=== PATIENT | female | born 1985 | race Caucasian/White ===

== ENCOUNTER 2018-05-22 16:51 | Outpatient (RCR) | payer MEDICAID, SELFPAY | END 2018-05-22 16:52 | disposition home or self-care (01) | LOC: PT 16:51 | PROVIDERS: Family Provider Nurse Practitioner Obstetrics & Gynecology; PCP Physician Assistant; Visit Provider Physician Assistant | DX: M54.5 Low back pain (principal) | CPT/HCPCS: 97163 ==

== ENCOUNTER → 2018-09-22 10:58 | Outpatient (CLI) | payer MEDICAID, SELFPAY ==
[2018-09-22 11:03] LABS: Adenovirus,PCR Not Detected (NotDetected); Bordetella Pertussis Not Detected (NotDetected); Chlamydophila Pneumoniae, PCR Not Detected (NotDetected); Coronavirus 229E Not Detected (NotDetected); Coronavirus NL63 Not Detected (NotDetected); Coronavirus OC43 Not Detected (NotDetected); Coronovirus HKU1,PCR Not Detected (NotDetected); Human Metapneumovirus Not Detected (NotDetected); Influenza A, PCR Not Detected (NotDetected); Influenza AH1, 2009 Not Detected (NotDetected); Influenza AH1, PCR Not Detected (NotDetected); Influenza AH3,PCR Not Detected (NotDetected); Influenza B, PCR Not Detected (NotDetected); Mycoplasma Pneumoniae, PCR Not Detected (NotDetected); Parainfluenza 1, PCR Not Detected (NotDetected); Parainfluenza 2, PCR Not Detected (NotDetected); Parainfluenza 3, PCR Not Detected (NotDetected); Parainfluenza 4, PCR Not Detected (NotDetected); Respiratory Syncytial Virus Not Detected (NotDetected); Rhinovirus/Enterovirus Not Detected (NotDetected)
== END ==
PROVIDERS: PCP Physician Assistant; Visit Provider Physician Assistant
DX: R09.89 Other specified symptoms and signs involving the circulatory and respiratory systems (principal)
CPT/HCPCS: 87486; 87581; 87633; 87798

== ENCOUNTER → 2019-03-03 08:56 | Outpatient (CLI) | payer MEDICAID, SELFPAY ==
--- NOTE | 2019-03-03 | US_ITS ---
US thyroid HISTORY: ITS.REASON: THYROID NODULE ORDERING PHYSICIAN: Rivas Bentley MD PATIENT AGE: 33 years Comparison: None FINDINGS: The right lobe of the thyroid gland is 4.5 x 1.5 x 1.6 cm. No nodules are evident. The left lobe is 4.3 x 1.3 x 1.5 cm. There is a slightly hypoechoic nodule well-circumscribed in the mid upper pole on the left. This measures 1.6 x 1 cm. IMPRESSION: 16 mm slightly hypoechoic well-circumscribed nodule in the upper pole on the left otherwise negative thyroid ultrasound
--- NOTE | 2019-03-03 09:06 | US_ITS ---
US FNA Thyroid HISTORY: Left thyroid nodule ORDERING PHYSICIAN: Rivas Bentley MD PATIENT AGE: 33 years COMPARISON: None TECHNIQUE: Following obtaining informed consent, using aseptic technique and local anesthesia with buffered lidocaine, fine-needle aspiration was performed of the nodule of interest using sonographic guidance. 4 passes were made into the nodule with a 25-gauge needle. Specimen was given to cytology. The patient tolerated the procedure well without evidence of immediate complications and left the ultrasound suite in stable condition. CYTOLOGY:Pending IMPRESSION: Uneventful fine-needle aspiration of left thyroid nodule with cytology pending
[2019-03-03 10:30] LABS: Free T4 (Free Thyroxine) 0.97 ng/dl (0.76-1.46); Thyroid Stimulating Hormone 1.85 uIU/ml (0.358-3.740)
[2019-03-04 06:53] LABS: Thyroid Peroxidase Antibodies 47 IU/mL (0-34)
[2019-03-05 14:33] LABS: Calcitonin <2.0 pg/mL (0.0-5.0)
[2019-03-06 07:01] LABS: Thyroid Stimulating Immunoglob <0.10 IU/L (0.00-0.55)
== END ==
PROVIDERS: Visit Provider Otolaryngology
DX: E04.1 Nontoxic single thyroid nodule (principal)
CPT/HCPCS: 10005; 36415; 76536; 76942; 82308; 84439; 84443; 84445; 86376

== ENCOUNTER → 2019-04-17 09:50 | Outpatient (CLI) | payer MEDICAID, SELFPAY ==
--- NOTE | 2019-04-17 09:56 | US_ITS ---
US thyroid HISTORY: ITS.REASON: thyroid nodule- left ORDERING PHYSICIAN: Rivas Bentley MD PATIENT AGE: 33 years Comparison: 02/06/2019. FINDINGS: Isthmus is 4.1 mm in diameter. Right lobe is 1.5 x 4.2 x 1.6 cm. Left lobe is 1.5 x 4.1 x 1.5 cm. The echogenicity of the thyroid tissue is normal. Along the posterior upper pole of the left thyroid lobe there is a hypoechoic nodule measuring 1.3 x 0.8 x 1.0 cm and is stable in size and appearance since prior study. Right lobe on today study shows a subtle mid posterior hypoechoic nodule which is somewhat pedunculated and measures 0.5 x 0.6 x 0.8 cm. This is homogeneous hypoechoic. Impression: Left thyroid lobe nodule stable as discussed on outside report. Today's study shows a pedunculated mid right thyroid nodule. There is no definite fatty hilum to suggest lymph node however this could be a pedunculated thyroid nodule not well seen on the prior study or even parathyroid nodule. Suggest follow-up recommended no mass or report which is approximately 1 year. Also consider correlating with calcium levels to rule out parathyroid adenoma.
== END ==
PROVIDERS: PCP Nurse Practitioner Family; Visit Provider Otolaryngology
DX: E04.1 Nontoxic single thyroid nodule (principal)
CPT/HCPCS: 76536

== ENCOUNTER → 2019-04-30 12:48 | Outpatient (CLI) | payer MEDICAID, SELFPAY ==
[2019-05-01 17:14] LABS: Calcium, Ionized 5.3 mg/dL (4.5-5.6)
== END ==
PROVIDERS: Visit Provider Otolaryngology
DX: R13.10 Dysphagia, unspecified (principal); D49.7 Neoplasm of unspecified behavior of endocrine glands and other parts of nervous system; E21.5 Disorder of parathyroid gland, unspecified
CPT/HCPCS: 36415; 82330

== ENCOUNTER → 2019-05-06 09:00 | Outpatient (CLI) | payer MEDICAID, SELFPAY ==
--- NOTE | 2019-05-06 09:05 | FL_ITS ---
EXAM: Barium swallow/esophagram. INDICATION: ITS.REASON: difficulty swallowing ORDERING PHYSICIAN: Rivas Bentley MD PATIENT AGE: 33 years COMPARISON: None TECHNIQUE: In the upright position the patient was observed to swallow barium in both the AP and lateral view. The cervical esophagus was examined under fluoroscopy with images obtained. The patient was then placed prone in the right anterior oblique position and was observed to swallow barium with Valsalva technique . FLUOROSCOPY TIME: 42 seconds FINDINGS: There was no evidence of aspiration. There was normal peristalsis. No filling defects or mucosal abnormalities. No masses or strictures. The esophagus is midline with no evidence of extrinsic compression. No hiatal hernia IMPRESSION: Negative barium swallow.
== END ==
PROVIDERS: PCP Nurse Practitioner Family; Visit Provider Otolaryngology
DX: R13.10 Dysphagia, unspecified (principal); D49.7 Neoplasm of unspecified behavior of endocrine glands and other parts of nervous system; E21.5 Disorder of parathyroid gland, unspecified
CPT/HCPCS: 74220

== ENCOUNTER → 2019-11-20 09:57 | Outpatient (CLI) | payer MEDICAID, SELFPAY ==
--- NOTE | 2019-11-20 09:58 | US_ITS ---
PROCEDURE: US THYROID CLINICAL INDICATION: Goiter Follow-up nodule COMPARISON: THY US thyroid from 04/17/2019 FINDINGS: Right lobe: 4 x 1.2 x 2.6 cm. There is a slightly hypoechoic nodule along the mid aspect of the right thyroid gland posteriorly measuring approximately 1 cm and could represent parathyroid gland and is unchanged. Left lobe: 4.2 x 1.6 x 1.2 cm. There is a 1 cm slightly hypoechoic well defined nodule along the posterior aspect of the left lobe of the thyroid gland. This is not significantly changed. No new nodules are evident. IMPRESSION: No change bilateral thyroid nodules with the nodule on the right possibly representing a parathyroid gland Dictated by: Darren Fenton MD 11/20/2019 12:19 Electronically signed by Darren Fenton MD in [place] 11/20/2019 12:19
== END ==
PROVIDERS: PCP Nurse Practitioner Family; Visit Provider Otolaryngology
DX: E04.1 Nontoxic single thyroid nodule (principal)
CPT/HCPCS: 76536

== ENCOUNTER → 2019-11-23 12:49 | Outpatient (CLI) | payer MEDICAID, SELFPAY ==
[2019-11-23 14:45] LABS: Free T4 (Free Thyroxine) 1.01 ng/dl (0.76-1.46); Thyroid Stimulating Hormone 1.22 uIU/ml (0.358-3.740)
[2019-11-24 20:05] LABS: Calcium, Ionized 5.4 mg/dL (4.5-5.6)
[2019-11-25 11:56] LABS: Parathyroid Hormone Intact 17 pg/mL (15-65)
== END ==
PROVIDERS: Visit Provider Otolaryngology
DX: E03.9 Hypothyroidism, unspecified (principal)
CPT/HCPCS: 36415; 82330; 83970; 84439; 84443

== ENCOUNTER 2020-04-13 16:00 | Outpatient (RCR) | payer MEDICAID, SELFPAY | END 2020-05-03 10:00 | disposition home or self-care (01) | LOC: PT.CARL 16:00 | PROVIDERS: PCP Nurse Practitioner Family; Visit Provider Podiatrist Foot & Ankle Surgery | DX: M76.62 Achilles tendinitis, left leg (principal) | CPT/HCPCS: 97014; 97033; 97035; 97110; 97140; 97163; G0283 ==

== ENCOUNTER → 2020-05-24 12:54 | Outpatient (CLI) | payer MEDICAID, SELFPAY ==
--- NOTE | 2020-05-24 12:54 | US_ITS ---
PROCEDURE: US THYROID CLINICAL INDICATION: goiter Six-month follow-up thyroid nodule COMPARISON: US US THYROID from 11/20/2019 FINDINGS: Right lobe: 4.4 x 0.8 0.7 cm. There is a isoechoic slightly hypoechoic nodule along the posterior aspect of the right lobes measuring 1 cm and could be due to a parathyroid gland not significantly changed. Left lobe: 4.4 x 1.5 x 1.7 cm. A 14 mm hypoechoic nodule well-circumscribed is present long the posterior aspect of the upper pole on the left also possibly due to enlarged parathyroid gland not significantly changed. Isthmus: Slightly thickened at 4 mm Additional findings: IMPRESSION: Overall no change in the bilateral thyroid nodules possibly related to parathyroid glands Dictated b Darren Fenton MD 05/24/2020 19:00 Darren Fenton MD in [place] 05/24/2020 19:00
== END ==
PROVIDERS: PCP Nurse Practitioner Family; Visit Provider Otolaryngology
DX: E04.1 Nontoxic single thyroid nodule (principal); E04.9 Nontoxic goiter, unspecified
CPT/HCPCS: 76536

== ENCOUNTER 2020-08-07 17:54 | Emergency (ER) | payer MEDICAID, SELFPAY ==
[2020-08-07 18:04] VITALS: BP 138/86; PULSE 90; RESP 18; TEMP 36.7; O2SAT 98; BMI 35.4
--- NOTE | 2020-08-07 18:12 | HMH.EDUTC ---
[facility] [place] Disposition Clinical Impression: Upper respiratory infection Qualifiers: URI type: unspecified URI Qualified Code(s): J06.9 - Acute upper respiratory infection, unspecified Disposition: Home, Self-Care Condition on Discharge: Good Instructions: Sore Throat Additional Instructions: *Monitor Temp, Over the counter Motrin or Tylenol as directed/as needed Tylenol every 4 hours and Motrin every 6 hours (as long as your family doctor has told you that you can take it) for fever or pain. and straight to ER if unable to lower temp less than 101.0 after medication given *Warm salt water gargles may help to soothe the throat *Throat Lozenges *Warm fluids like tea with honey may help to soothe the throat *Sleep elevated *Humidifier/Vaporizer *Flonase 2 sprays in each nostril daily but be aware that it may take 2-3 days before you notice improvement Your throat swab was sent for culture. Those results are typically sent to your primary care. Be sure to follow up in 2-3 days with your family doctor/primary care physician if no improvement so they can review those result and treat if necessary. If you don?t have a primary care doctor, I recommend you get one but in the mean time, you will have to return to a walk in clinic Follow up IMMEDIATELY for new or worsening symptoms or no Noticeable improvement over the next 48-72 hours. 911 for difficulty breathing or swallowing Prescriptions: Amoxicillin [Amoxicillin 500mg Cap] 500 mg PO BID 10 Days #20 cap Transmission Status: Pending to [id number] Referrals: Mabel Jiménez APRN [Primary Care Provider] - As needed Time of Disposition: 18:27 Medical Decision Making - Kumar Inquiry Pt receiving controlled substance: No Kumar was queried for this patient: No Vital Signs: 08/07/20 18:04 Temperature 98.1 F Temperature Source Oral Pulse Rate [Radial] 90 Respiratory Rate 18 Blood Pressure [Right Arm] 138/86 Blood Pressure Mean [Right Arm] 103 Blood Pressure Source [Right Arm] Automatic Cuff Blood Pressure Position [Right Arm] Sitting 02 Sat by Pulse Oximetry 98 Oxygen Delivery Method Room Air [facility] [place] HPI - General Stated complaint: Sore throat Time Seen by Provider: 08/07/20 18:12 Mode of Arrival: Ambulatory Source of Information: Patient Limitations: No Limitations Description of Symptoms (Recalled from Triage Doc. by RN): sore throat since yesterday, possible strep or tonsilitis HEENT Symptoms (Recalled from RN notes): Yes Resp Symptoms (Recalled from RN notes): No Skin Symptoms (Recalled from RN notes): No MS Symptoms (Recalled from RN notes): No Functional Status (Recalled from RN notes): wnl - History of Present Illness Provider Complaint: Patient states that a couple days ago she started with sore throat and drainage States that she has had strep throat multiple times throughout the years States that today it was hurting worse and she came in to get checked - Related Data Home Medications Medication Instructions Recorded Confirmed duloxetine 30 mg capsule,delayed 30 mg PO DAILY 02/23/19 11/23/19 release Meloxicam 15 mg PO DAILY 11/06/19 11/23/19 Previous Rx's Medication Instructions Recorded Ibuprofen [Ibuprofen 600mg 600 mg PO Q6HP PRN #30 tab 12/23/19 Tablet] Amoxicillin [Amoxicillin 500mg 500 mg PO BID 10 Days #20 cap 08/07/20 Cap] Allergies Allergy/AdvReac Type Severity Reaction Status Date / Time No Known Allergies Allergy Verified 11/23/19 13:19 - Worker's Comp Is this a Worker's Comp case?: No [facility] History - Hepatitis A Screen Drug use history?: No High risk sexual behaviors?: No History of sexually transmitted infection?: No Currently employed?: No Childcare worker?: No Do you have indoor plumbing?: Yes Do you have electricity?: Yes Attestation statement:: This patient has been screened for Hepatitis A risk factors. I have reviewed the patient's past medical history: Yes Medical Hi
[2020-08-07 18:25] LABS: UTC Strep Screen (Rapid) Negative (Negative)
[2020-08-07 18:43] VITALS: BP 138/86; PULSE 90; RESP 18; TEMP 36.7; O2SAT 98
== END 2020-08-07 18:50 | disposition home or self-care (01) ==
PROVIDERS: Emergency Provider Nurse Practitioner; PCP Nurse Practitioner Family
DX: J06.9 Acute upper respiratory infection, unspecified (principal); F41.8 Other specified anxiety disorders; F17.210 Nicotine dependence, cigarettes, uncomplicated
CPT/HCPCS: 87880; 99201

== ENCOUNTER 2020-09-09 18:08 | Emergency (ER) | payer MEDICAID, SELFPAY ==
[2020-09-09 18:30] VITALS: BP 117/81; PULSE 74; RESP 21; TEMP 36.9; O2SAT 99; BMI 35.4
--- NOTE | 2020-09-09 18:47 | HMH.EDUTC ---
[facility] [place] Disposition Condition on Discharge: Good <Jd Marcos - Last Filed: 09/09/20 19:59> Condition on Discharge: Fair <Horace Morrison - Last Filed: 09/09/20 20:32> <Dallas Medina - Last Filed: 09/09/20 21:06> Clinical Impression: Abdominal pain Qualifiers: Abdominal location: generalized Qualified Code(s): R10.84 - Generalized abdominal pain Low back pain Qualifiers: Chronicity: acute Back pain laterality: left Sciatica presence: without sciatica Qualified Code(s): M54.5 - Low back pain Cholelithiasis Qualifiers: Cholelithiasis location: gallbladder Cholecystitis presence: without cholecystitis Biliary obstruction: without biliary obstruction Qualified Code(s): K80.20 - Calculus of gallbladder without cholecystitis without obstruction Disposition: Home, Self-Care Instructions: DI for Low Back Pain Referrals: Mabel Jiménez APRN [Primary Care Provider] - Medical Decision Making <Jd Marcos - Last Filed: 09/09/20 19:59> - Medical Records Medical records reviewed: No: I reviewed the patient's medical records. - Kumar Inquiry Pt receiving controlled substance: No - Lab Data Lab results reviewed: Yes: I reviewed the patient's lab results. Result diagrams: 09/09/20 19:10 09/09/20 19:10 <Horace Morrison - Last Filed: 09/09/20 20:32> - Lab Data Result diagrams: 09/09/20 19:10 09/09/20 19:10 - CT Data CT Scan: Abdomen, Pelvis Time Received: 21:[address] Reviewed: Yes: I have viewed the radiologist's interpretation Preliminary Findings: Abnormal (see report ) - Reevaluation(s) Time: 21:03 <Dallas Medina - Last Filed: 09/09/20 21:06> Vital Signs: 09/09/20 18:30 09/09/20 19:13 09/09/20 20:08 Temperature 98.5 F 98.5 F Temperature Source Oral Oral Pulse Rate [Right Brachial] 74 68 72 Respiratory Rate 21 16 17 Blood Pressure [Right Arm] 117/81 136/86 129/62 Blood Pressure Mean [Right Arm] 93 102 84 Blood Pressure Source [Right Arm] Automatic Cuff Automatic Cuff Automatic Cuff Blood Pressure Position [Right Arm] Sitting Sitting Supine 02 Sat by Pulse Oximetry 99 100 100 Oxygen Delivery Method Room Air Room Air Room Air - Lab Data Lab Results 09/09/20 18:30: Urine Color Yellow, Urine Appearance Clear, Urine pH 6.0, Ur Specific [place] 1.010, Urine Protein Negative, Urine Glucose (UA) Negative, Urine Ketones Negative, Urine Blood Negative, Urine Nitrate Negative, Urine Bilirubin Negative, Urine Urobilinogen 0.2, Ur Leukocyte Esterase Negative 09/09/20 19:10: WBC 12.8 H, RBC 4.30, Hgb 15.2, Hct 39.6, MCV 92.2, MCH 35.5 H, MCHC 38.5 H, RDW 13.3, Plt Count 252, MPV 8.4, Neut % (Auto) 70.2, Lymph % (Auto) 20.1, [place] % (Auto) 6.2, Eos % (Auto) 2.8, Baso % (Auto) 0.7, Neut # (Auto) 9.0 H, Lymph # (Auto) 2.6, [place] # (Auto) 0.8, Eos # (Auto) 0.4, Baso # (Auto) 0.1 09/09/20 19:10: Urine HCG, Qual Negative 09/09/20 19:10: Sodium 139, Potassium 4.2, Chloride 104, Carbon Dioxide 27, Anion Gap 12.2, BUN 11, Creatinine 0.90, Estimated Creat Clear 127, Estimated GFR 72, Est GFR ( Amer) 87, Glucose 99, Calcium 9.7, Total Bilirubin 0.4, AST 30, ALT 30, Alkaline Phosphatase 55, C-Reactive Protein 10.1 H, Total Protein 7.7, Albumin 4.6, Globulin 3.1, Albumin/Globulin Ratio 1.5 Orders (Tests/Meds): ED MEDICATIONS Generic Name Dose Route Start Last Admin Trade Name Freq PRN Reason Stop Dose Admin Lactated Ringer's 1,000 mls @ 999 mls/hr 09/09/20 19:30 09/09/20 20:02 Lactated Ringer's 1000 Ml Bag IV 09/09/20 20:30 999 mls/hr .Q1H1M ASHLEY Administration Discontinued Medications Generic Name Dose Route Start Last Admin Trade Name Freq PRN Reason Stop Dose Admin Morphine Sulfate 4 mg 09/09/20 19:30 09/09/20 20:02 Morphine 4mg/Ml Syringe IV 09/09/20 19:31 4 mg ONCE ONE Administration Ondansetron HCl 4 mg 09/09/20 19:30 09/09/20 20:02 Ondansetron 4mg/2ml Vial IV 09/09/20 19:31 4 mg ONCE ONE Administration ORDERS Category Date Time Status CT
[2020-09-09 18:57] LABS: Apearance,Urine Clear (Clear); Bilirubin,Urine Negative (Negative); Blood, Urine Negative (Negative); Color,Urine Yellow (Yellow); Glucose,Urine (UA) Negative (Negative); Ketones,Urine Negative (Negative); Protein,Urine Negative (Negative); UTC Leukocyte Esterase,Urine Negative (Negative); UTC Nitrate,Urine Negative (Negative); Urobilinogen,Urine 0.2 EU/dl (0.2)
--- NOTE | 2020-09-09 19:00 | PC.NURSE ---
PATIENT SENT TO ER PER PER CALLAHAN APRN FOR FURTHER EVALUATION. REPORT GIVEN TO Norm WORLEY RN
[2020-09-09 19:13] VITALS: BP 136/86; PULSE 68; RESP 16; TEMP 36.9; O2SAT 100; BMI 35.4
--- NOTE | 2020-09-09 19:30 | CT_ITS ---
PROCEDURE: CT ABDOMEN PELVIS W CON CLINICAL INDICATION: abdominal pain Low back pain, right lower quadrant pain with nausea COMPARISON: No exams were available for comparison TECHNIQUE: IV Contrast: 75ML Isovue 370 Oral Contrast None Axial images obtained with sagittal and coronal reformats. All CT scans at the facility use one or more dose reduction, viz: automated exposure control, ma/kV adjustment per patient size (including targeted exams where dose is matched to indication, i.e. head), or iterative reconstruction technique. FINDINGS: LOWER THORAX: No acute finding ABDOMEN & PELVIS: The liver, spleen, adrenal glands, pancreas, and kidneys have an unremarkable appearance. There is some minimal stranding of the perinephric renal fat on both sides nonspecific. Gallstones are present. Unremarkable appendix. No pelvic mass or abnormal fluid collection. There are few colonic diverticula but no evidence of diverticulitis. No acute bony findings. There is a small umbilical hernia containing fat IMPRESSION: 1. Mild stranding of the perinephric renal fat versus minimal amount of perinephric fluid. 2. Cholelithiasis. 3. Colonic diverticulosis without diverticulitis Dictated by: Darren Fenton MD 09/10/2020 08:12 Darren Fenton MD in [place] 09/10/2020 08:12
[2020-09-09 19:41] LABS: Chloride 104 mmol/L (98-107); Potassium 4.2 mmoL/L (3.5-5.1); Sodium 139 mmol/L (136-145)
[2020-09-09 19:43] LABS: Blood Urea Nitrogen 11 mg/dl (7-17); Creatinine Clearance Estimated 127 mL/min (50-200); Estimated Glomerular Filt Rate 72 ml/min (>60); GFR (African American) 87 ML/MIN (>60)
[2020-09-09 19:44] LABS: Alanine Aminotransferase 30 U/L (12-78); Albumin Level 4.6 g/dl (3.5-5.0); Albumin/Globulin Ratio 1.5 (1.1-1.8); Alkaline Phosphatase 55 U/L (38-126); Anion Gap 12.2 mEq/L (5-15); Aspartate Amino Transferase 30 U/L (14-36); Bilirubin,Total 0.4 mg/dl (0.2-1.3); Calcium 9.7 mg/dl (8.4-10.2); Carbon Dioxide 27 mmol/L (22.0-30.0); Globulin 3.1 g/dL (1.3-3.2); Glucose 99 mg/dl (74-100); Total Protein,Serum 7.7 g/dl (6.3-8.2)
[2020-09-09 19:50] LABS: Basophils # 0.1 K/mm3 (0-0.2); Basophils % 0.7 % (0.1-2.0); C-Reactive Protein 10.1 mg/L (0-4); Eosinophils # 0.4 K/mm3 (0.0-0.4); Eosinophils % 2.8 % (0.1-12.0); Hematocrit 39.6 % (37.0-47.0); Hemoglobin 15.2 g/dL (12.2-16.2); Lymphocytes # 2.6 K/mm3 (0.7-4.5); Lymphocytes % 20.1 % (10-50); Mean Corpuscular HGB Conc 38.5 g/dL (31.8-35.4); Mean Corpuscular Hemoglobin 35.5 pg (27.0-31.2); Mean Corpuscular Volume 92.2 fl (81-99); Mean Platelet Volume 8.4 fl (7.4-10.4); Monocytes # 0.8 K/mm3 (0.1-1.0); Monocytes % 6.2 % (1.7-9.3); Neutrophils % 70.2 % (37.0-80.0); Platelet Count 252 K/mm3 (142-424); Red Cell Distribution Width 13.3 % (11.5-17.5); White Blood Count 12.8 K/mm3 (4.8-10.8)
[2020-09-09 20:02] LABS: Urine Pregnancy, HCG Qual. Negative (Negative)
[2020-09-09 20:08] VITALS: BP 129/62; PULSE 72; RESP 17; O2SAT 100
[2020-09-09 21:12] VITALS: BP 127/69; PULSE 83; RESP 16; TEMP 36.7; O2SAT 98
== END 2020-09-09 21:15 | disposition home or self-care (01) ==
LOC: UTC 18:56 → ER 19:03
PROVIDERS: Nurse Practitioner Family; Emergency Provider Student in an Organized Health Care Education/Training Program; PCP Nurse Practitioner Family
DX: K80.20 Calculus of gallbladder without cholecystitis without obstruction (principal); F41.8 Other specified anxiety disorders; F17.210 Nicotine dependence, cigarettes, uncomplicated
CPT/HCPCS: 74177; 80053; 81003; 81025; 85025; 86140; 87086; 96365; 96375; 99284; J2405; Q9967

== ENCOUNTER → 2020-09-28 15:55 | Outpatient (CLI) | payer MEDICAID, SELFPAY ==
[2020-09-28 17:43] LABS: Coronavirus 19 IgG Antibody Negative (Negative); Coronavirus 19 IgM Antibody Negative (Negative)
[2020-09-28 18:39] LABS: Urine Pregnancy, HCG Qual. Negative (Negative)
== END ==
PROVIDERS: Visit Provider Surgery
DX: Z01.818 Encounter for other preprocedural examination (principal); Z03.818 Encounter for observation for suspected exposure to other biological agents ruled out; K80.20 Calculus of gallbladder without cholecystitis without obstruction
CPT/HCPCS: 36415; 81025; 86328

== ENCOUNTER 2020-09-30 11:42 | Day surgery (SDC) | payer MEDICAID, SELFPAY ==
[2020-09-28 11:17] VITALS: BMI 35.4
[2020-09-30] VITALS (13 sets, daily range): BP systolic 108–129; BP diastolic 65–80; PULSE 56–84; RESP 18–20; TEMP 36.3–43; O2SAT 61–98
--- NOTE | 2020-09-30 15:29 | HMH.OPNOTE ---
Date of procedure: 09/30/20 Pre-op Diagnosis:: Symptomatic cholelithiasis Post-op Diagnosis:: Chronic calculus cholecystitis Procedure performed:: Laparoscopic cholecystectomy Surgeon:: Kwame Cody MD CARDIAC NURSE PRACTITIONER:: Ray Marcum Anesthesia: GETJorge Estimated blood loss (mL): 15 Operative findings:: Infundibular thickening Operative note:: After informed consent was obtained, the patient was taken to the operating room and placed in the supine position. General anesthesia was induced and the abdomen was prepped and draped in a sterile fashion. After infiltration with local anesthetic an infraumbilical incision was made. A Veress needle was placed in position. The abdomen was insufflated. A 5 mm optical trocar was placed in position. Under direct visualization, a 12 mm trocar was placed in the subxiphoid position and 2 additional 5 mm trocars were placed in the right upper quadrant. The gallbladder was elevated up and over the liver margin. The tissue around the cystic duct was carefully dissected. 3 clips were placed proximally and the duct was transected with harmonic ciro. Harmonic ciro were then utilized to dissect the gallbladder away from the liver margin with careful attention to the control of the cystic artery. The gallbladder was placed in a retrieval bag and removed through the subxiphoid trocar site. The right upper quadrant was thoroughly irrigated. No active bleeding or bile leak was noted. Fascia at the subxiphoid trocar site was reapproximated utilizing 0 Ethibond. The remaining trocars were removed. All wounds were irrigated and skin was closed with 4-0 Monocryl in a subcuticular fashion. Steri-Strips were applied. The patient's anesthetic agents were reversed and extubation was completed prior to transfer to recovery in stable condition. Condition: stable Disposition: PACU Specimens:: Gallbladder and contents Complications:: No immediate
--- NOTE | 2020-09-30 15:37 | HMH.ANESCL ---
[facility] Anesthesia Checklist - Patient Identification Patient Identification: Arm Band, Verbal (Name & ) - Structural Data Admitted From: Home Planned Operative Procedure/s: lap choley Consent for Planned Operative Procedure(s) Verified: Yes Verified Documents: History and Physical - NPO Status Verified Time NPO: 00:00 - Chart Verification Results Verified: CBC, BMP - Additional verifications Patient : No Anesthesia Reactions: No Hx Blood Transfusions: No Blood Transfusion Reaction: No Cephalosporin Allergy: No Previous Colonoscopy: No - Cardiovascular Assessment Heart Sounds: S1 & S2 Pulse Strength: Baseline Pulse Rhythm: Regular Peripheral Edema: No - Airway Assessment C-Spine Mobility Assessed: Yes TMJ Mobility Assessed: Yes Dentition: Good Dentition - Neurological Assessment Level of Consciousness: Awake, Alert, Appropriate Hx Seizures: No Numbness or tingling in extremities: No - Anesthesia Plan Anesthesia Risk discussed: Yes Anesthesia Plan: Verified ASA Class: II Anesthesia Type: General [facility] History I have reviewed the patient's past medical history: Yes Medical History: Reports:: Anxiety, Depression Denies:: Cancer, Diabetes Mellitus Type 1, Diabetes Mellitus Type 2, Internal Pacemaker, MRSA, Seizures *Have you ever received a pneumonia vaccine?: No *Have you received a flu vaccine this season?: No Other Medical History: Denies: Blood Transfusion Reaction Anesthesia experience/problems:: none Other Surgeries: Yes: Other. No: Pacemaker Amputation: No Fractures: No - *Social History Last grade of school completed: 9th or 10th Smoking Status: Current every day smoker Tobacco Type: cigarettes # Packs/Day (cigarettes): 1 Alcohol Intake: never Alcohol Intake Frequency:: holidays/special occasions only Substance Use Type: denies use *Occupational Status:: unemployed Housing: house Household Members: significant other *Travel in the last 8 weeks: None - Psychiatric History Pschychiatric History:: Reports:: Anxiety, Depression Family Hx:: No significant family history
--- NOTE | 2020-09-30 15:40 | P.PN_ITS ---
[facility] Anesthesia Record Part I Intake, IV Amount: 700 Estimated blood loss (mL): 10 Urine output (mL): 0 Blood Products used (#): none Blood Pressure: 125/79 SaO2: 95 Pulse Rate: 84 Respiratory Rate: 20 Temperature: 98.5 F Patient is:: Drowsy, Stable Stable to PACU at:: 15:33
--- NOTE | 2020-09-30 16:20 | PC.NURSE ---
1601-detailed report called to BORA Acosta 1603-pt transported to post op via stretcher w/isra rails up and left in care of BORA Portillo with bed locked in lowest position, detailed report given at bedside, chris pt stable
== END 2020-09-30 17:17 | disposition home or self-care (01) ==
LOC: OR 11:45
PROVIDERS: PCP Nurse Practitioner Family; Visit Provider Surgery
PROC: 0FT44ZZ Resection of Gallbladder, Percutaneous Endoscopic Approach (ICD-10-PCS; CPT 47562; principal; 2020-09-30 13:15)
DX: K80.10 Calculus of gallbladder with chronic cholecystitis without obstruction; F41.9 Anxiety disorder, unspecified; F32.9 Major depressive disorder, single episode, unspecified; Z72.0 Tobacco use; Z79.899 Other long term (current) drug therapy
CPT/HCPCS: 47562; 96374; J2405; J2710

== ENCOUNTER → 2020-10-17 16:15 | Outpatient (CLI) | payer MEDICAID, SELFPAY ==
[2020-10-17 17:37] LABS: Free T4 (Free Thyroxine) 1.03 ng/dl (0.78-2.19)
[2020-10-17 18:11] LABS: Thyroid Stimulating Hormone 1.44 uIU/mL (0.465-4.68)
== END ==
PROVIDERS: Visit Provider Otolaryngology
DX: E01.0 Iodine-deficiency related diffuse (endemic) goiter (principal); E04.1 Nontoxic single thyroid nodule; R13.10 Dysphagia, unspecified
CPT/HCPCS: 36415; 84439; 84443

== ENCOUNTER 2020-10-23 19:59 | Emergency (ER) | payer MEDICAID, SELFPAY ==
[2020-10-23 20:10] VITALS: BP 133/73; PULSE 96; RESP 20; TEMP 36.9; O2SAT 98; BMI 35.4
--- NOTE | 2020-10-23 20:25 | HMH.EDUTC ---
[facility] [place] Condition on Discharge: Good Time of Disposition: 20:35 <CindyPaulinenegar - Last Filed: 10/23/20 20:25> <Dallas Medina - Last Filed: 10/23/20 23:01> Clinical Impression: Abdominal pain Qualifiers: Abdominal location: right lower quadrant Qualified Code(s): R10.31 - Right lower quadrant pain Disposition: Home, Self-Care Instructions: DI for Acute Abdominal Pain Additional Instructions: fluids and call pcp and dr zhang for follow up Referrals: Mabel Jiménez APRN [Primary Care Provider] - Medical Decision Making - Kumar Inquiry Pt receiving controlled substance: No <Josie White - Last Filed: 10/23/20 20:25> - Medical Records Medical records reviewed: Yes: I reviewed the patient's medical records. - Lab Data Lab results reviewed: Yes: I reviewed the patient's lab results. Result diagrams: 10/23/20 20:55 10/23/20 20:55 - CT Data CT Scan: Abdomen, Pelvis Time Received: 23:[address] Reviewed: Yes: I have viewed the radiologist's interpretation Preliminary Findings: Normal/NAD <Dallas Medina - Last Filed: 10/23/20 23:01> Vital Signs: 10/23/20 20:10 10/23/20 20:47 Temperature 98.5 F 97.9 F Temperature Source Oral Oral Pulse Rate [Right Brachial] 96 H 84 Respiratory Rate 20 16 Blood Pressure [Right Arm] 133/73 133/77 Blood Pressure Mean [Right Arm] 93 95 Blood Pressure Source [Right Arm] Automatic Cuff Automatic Cuff Blood Pressure Position [Right Arm] Sitting 02 Sat by Pulse Oximetry 98 100 Oxygen Delivery Method Room Air Room Air - Lab Data Lab Results 10/23/20 20:55: WBC 11.7 H, RBC 4.98, Hgb 15.0, Hct 45.1, MCV 90.6, MCH 30.2, MCHC 33.3, RDW 13.5, Plt Count 295, MPV 8.3, Neut % (Auto) 64.4, Lymph % (Auto) 26.5, [place] % (Auto) 5.5, Eos % (Auto) 3.0, Baso % (Auto) 0.6, Neut # (Auto) 7.5, Lymph # (Auto) 3.1, [place] # (Auto) 0.6, Eos # (Auto) 0.4, Baso # (Auto) 0.1 10/23/20 20:55: Sodium 137, Potassium 4.0, Chloride 103, Carbon Dioxide 26, Anion Gap 12.0, BUN 10, Creatinine 0.70, Estimated Creat Clear 164, Estimated GFR 96, Est GFR ( Amer) 117, Glucose 117 H, Calcium 9.8, Total Bilirubin 0.3, AST 27, ALT 27, Alkaline Phosphatase 48, Total Protein 7.9, Albumin 4.6, Globulin 3.3 H, Albumin/Globulin Ratio 1.4, Amylase 90, Lipase 146 10/23/20 20:55: SARS-CoV-2 IgG Ab (Rapid) Negative, SARS-CoV-2 IgM Ab (Rapid) Negative 10/23/20 21:03: Tst Clinic Negative Orders (Tests/Meds): ED MEDICATIONS Generic Name Dose Route Start Last Admin Trade Name Freq PRN Reason Stop Dose Admin Sodium Chloride 1,000 mls @ 999 mls/hr 10/23/20 21:00 10/23/20 20:58 Sod Chlor 0.9% 1000ml Bag IV 10/23/20 22:00 999 mls/hr .Q1H1M ASHLEY Administration Sodium Chloride 8 ml 10/23/20 20:56 Sodium Chloride 0.9% 10ml Vial IV 11/22/20 20:55 NEEDED PRN dilute pepcid Discontinued Medications Generic Name Dose Route Start Last Admin Trade Name Freq PRN Reason Stop Dose Admin Famotidine 20 mg 10/23/20 20:56 10/23/20 20:58 Famotidine 20mg/2ml Vial IV 10/23/20 20:57 20 mg ONCE ONE Administration Iopamidol 75 ml 10/23/20 21:33 10/23/20 21:33 Iopamidol-370 (76%);100ml Bottle IV 10/23/20 21:34 75 ml ONCE ONE Administration Ketorolac Tromethamine 30 mg 10/23/20 20:59 10/23/20 21:33 Ketorolac 30mg/Ml Vial IV 10/23/20 21:00 30 mg ONCE ONE Administration Metoclopramide HCl 10 mg 10/23/20 20:59 10/23/20 21:34 Metoclopramide Hcl 10mg/2ml Vial IVP 10/23/20 21:00 10 mg ONCE ONE Administration Sodium Chloride 10 ml 10/23/20 21:33 10/23/20 21:33 Sodium Chloride 0.9% 10ml Syr (Rad Only) IV 10/23/20 21:34 10 ml ONCE ONE Administration ORDERS Category Date Time Status CT abdomen pelvis w con Stat Cat Scan 10/23/20 20:56 Taken Diarrhea 6-11 Panel, Cdiff PCR Stat Lab 10/23/20 20:56 Ordered Medical Decision Narrative: improved at this time and will follow as op (Dallas Medina) [facility] [place] HPI - Ge
[2020-10-23 20:47] VITALS: BP 133/77; PULSE 84; RESP 16; TEMP 36.6; O2SAT 100; BMI 35.4
--- NOTE | 2020-10-23 20:56 | CT_ITS ---
PROCEDURE: CT ABDOMEN PELVIS W CON CLINICAL INDICATION: right side abd pain Right-sided abdominal pain status post cholecystectomy COMPARISON: CT CT ABDOMEN PELVIS W CON from 09/09/2020 TECHNIQUE: IV Contrast: 75ML Isovue 370 Oral Contrast None Axial images obtained with sagittal and coronal reformats. All CT scans at the facility use one or more dose reduction, viz: automated exposure control, ma/kV adjustment per patient size (including targeted exams where dose is matched to indication, i.e. head), or iterative reconstruction technique. FINDINGS: LOWER THORAX: No acute finding ABDOMEN & PELVIS: Status post cholecystectomy. Liver, spleen, adrenal glands, pancreas, and kidneys have an unremarkable appearance. No evidence of appendicitis. No intestinal obstruction or free air. No evidence of biloma or postsurgical abscess. There is a small umbilical hernia containing fat. There are few colonic diverticula but no evidence of diverticulitis. There is thickening of the descending and sigmoid colon which could be seen with colitis or nondistention. Mild prominence of the adnexa with prominent left-sided pelvic veins . This could be seen with pelvic congestion syndrome. No abnormal fluid collection. No acute bony findings. IMPRESSION: 1. Prominent left pelvic veins which could be seen with pelvic congestion syndrome. 2. Colonic diverticulosis. No evidence of diverticulitis. 3. Mildly thickened descending and sigmoid colon which could be due to nondistention or mild colitis. Dictated by: Darren Fenton MD 10/24/2020 07:25 Darren Fenton MD in [facility] 10/24/2020 07:25
[2020-10-23 21:04] LABS: UTC Pregnancy Test, Urine Negative (Negative)
[2020-10-23 21:26] LABS: Basophils # 0.1 K/mm3 (0-0.2); Basophils % 0.6 % (0.1-2.0); Eosinophils # 0.4 K/mm3 (0.0-0.4); Hematocrit 45.1 % (37.0-47.0); Lymphocytes # 3.1 K/mm3 (0.7-4.5); Lymphocytes % 26.5 % (10-50); Mean Corpuscular HGB Conc 33.3 g/dL (31.8-35.4); Mean Corpuscular Hemoglobin 30.2 pg (27.0-31.2); Mean Corpuscular Volume 90.6 fl (81-99); Mean Platelet Volume 8.3 fl (7.4-10.4); Monocytes # 0.6 K/mm3 (0.1-1.0); Monocytes % 5.5 % (1.7-9.3); Neutrophils # 7.5 K/mm3 (1.8-7.8); Neutrophils % 64.4 % (37.0-80.0); Platelet Count 295 K/mm3 (142-424); Red Blood Count 4.98 M/mm3 (4.20-5.40); Red Cell Distribution Width 13.5 % (11.5-17.5); White Blood Count 11.7 K/mm3 (4.8-10.8)
[2020-10-23 21:27] LABS: Chloride 103 mmol/L (98-107); Sodium 137 mmol/L (136-145)
[2020-10-23 21:29] LABS: Amylase 90 U/L (30-110)
[2020-10-23 21:30] LABS: Alanine Aminotransferase 27 U/L (12-78); Albumin Level 4.6 g/dl (3.5-5.0); Albumin/Globulin Ratio 1.4 (1.1-1.8); Alkaline Phosphatase 48 U/L (38-126); Aspartate Amino Transferase 27 U/L (14-36); Bilirubin,Total 0.3 mg/dl (0.2-1.3); Blood Urea Nitrogen 10 mg/dl (7-17); Calcium 9.8 mg/dl (8.4-10.2); Carbon Dioxide 26 mmol/L (22.0-30.0); Creatinine Clearance Estimated 164 mL/min (50-200); Estimated Glomerular Filt Rate 96 ml/min (>60); GFR (African American) 117 ML/MIN (>60); Globulin 3.3 g/dL (1.3-3.2); Glucose 117 mg/dl (74-100); Lipase 146 U/L (23-300); Total Protein,Serum 7.9 g/dl (6.3-8.2)
[2020-10-23 21:36] LABS: Coronavirus 19 IgG Antibody Negative (Negative); Coronavirus 19 IgM Antibody Negative (Negative)
[2020-10-23 23:19] VITALS: BP 125/74; PULSE 81; RESP 16; TEMP 36.7; O2SAT 98
== END 2020-10-23 23:22 | disposition home or self-care (01) ==
LOC: UTC 20:01 → ER 20:31
PROVIDERS: Emergency Medicine; Emergency Provider Nurse Practitioner Family; PCP Nurse Practitioner Family
DX: R10.31 Right lower quadrant pain (principal); Z01.84 Encounter for antibody response examination; F41.8 Other specified anxiety disorders; F17.210 Nicotine dependence, cigarettes, uncomplicated
CPT/HCPCS: 74177; 80053; 81025; 82150; 83690; 85025; 86328; 99282; Q9967

== ENCOUNTER → 2020-10-26 15:22 | Outpatient (CLI) | payer MEDICAID, SELFPAY ==
--- NOTE | 2020-10-26 15:23 | US_ITS ---
PROCEDURE: US THYROID CLINICAL INDICATION: THYROID NODULE 5 month follow up Pain in right side of neck right lobe: parathyroid vs nodule left lobe: nodule COMPARISON: US THY US thyroid from 04/17/2019 US US THYROID from 05/24/2020 FINDINGS: Right lobe: 1.5cm x 4.1cm x 1.8cm Left lobe: 1.1cm x 4.2cm x 1.5cm Isthmus: The isthmus is mildly thickened at 5 mm. Additional findings: A 1 x 0.8 cm slightly hypoechoic nodules present along the posterior aspect of the right lobe of the thyroid gland not significantly changed and may represent parathyroid gland. In the upper pole on the left posteriorly there is a 15 x 10 mm slightly hypoechoic nodule not significantly changed. No new nodules are evident. IMPRESSION: No change bilateral thyroid nodules Dictated by: Darren Fenton MD 10/28/2020 09:58 Darren Fenton MD in [facility] 10/28/2020 09:58
== END ==
PROVIDERS: PCP Nurse Practitioner Family; Visit Provider Otolaryngology
DX: E01.0 Iodine-deficiency related diffuse (endemic) goiter (principal); E04.1 Nontoxic single thyroid nodule; R13.10 Dysphagia, unspecified
CPT/HCPCS: 76536

== ENCOUNTER 2020-10-31 14:51 | Emergency (ER) | payer MEDICAID, SELFPAY ==
--- NOTE | 2020-10-31 15:01 | CT_ITS ---
PROCEDURE: CT SOFT TISSUE NECK W CON CLINICAL HISTORY: right sided neck pain anterior, pain with swallowing COMPARISON: No exams were available for comparison TECHNIQUE: Oral Contrast: None IV Contrast: 75 mL Isovue 370 Axial images obtained with sagittal and coronal reformats. All CT scans at the facility use one or more dose reduction, viz: automated exposure control, ma/kV adjustment per patient size (including targeted exams where dose is matched to indication, i.e. head), or iterative reconstruction technique. FINDINGS: There are scattered shotty cervical lymph nodes. The nasopharynx pharynx and hypopharynx have an unremarkable appearance as does the epiglottis. No evidence neck abscess. There is increased soft tissue density in the left side of the of vallecula. While this could be related to an incomplete distension, 1 cannot exclude a mucosal lesion and direct visualization is suggested. This area measures approximately 1 cm. 1 cm hypodensity is present in the left lobe of the thyroid gland nonspecific. Lung apices are clear. IMPRESSION: 1. Scattered shotty cervical lymph nodes nonspecific. 2. Increased density in the left vallecula possibly due to nondistention. Cannot exclude mucosal lesion. Direct visualization suggested. 3. Small left thyroid nodule nonspecific. Dictated by: Darren Fenton MD 11/01/2020 07:44 Darren Fenton MD in [facility] 11/01/2020 07:44
[2020-10-31 15:04] VITALS: BP 172/90; PULSE 100; RESP 16; TEMP 36.9; O2SAT 98; BMI 35.4
[2020-10-31 15:43] LABS: Chloride 105 mmol/L (98-107); Potassium 4.2 mmoL/L (3.5-5.1); Sodium 138 mmol/L (136-145)
[2020-10-31 15:46] LABS: Alanine Aminotransferase 29 U/L (12-78); Albumin Level 4.7 g/dl (3.5-5.0); Albumin/Globulin Ratio 1.3 (1.1-1.8); Alkaline Phosphatase 58 U/L (38-126); Anion Gap 11.2 mEq/L (5-15); Aspartate Amino Transferase 26 U/L (14-36); Bilirubin,Total 0.4 mg/dl (0.2-1.3); Blood Urea Nitrogen 9 mg/dl (7-17); Calcium 10.2 mg/dl (8.4-10.2); Carbon Dioxide 26 mmol/L (22.0-30.0); Creatinine Clearance Estimated 191 mL/min (50-200); Estimated Glomerular Filt Rate 115 ml/min (>60); GFR (African American) 139 ML/MIN (>60); Globulin 3.7 g/dL (1.3-3.2); Glucose 101 mg/dl (74-100); Total Protein,Serum 8.4 g/dl (6.3-8.2)
[2020-10-31 15:57] LABS: HCG Qualitative, Serum Negative (Negative)
[2020-10-31 16:02] LABS: Basophils # 0.1 K/mm3 (0-0.2); Basophils % 0.9 % (0.1-2.0); Eosinophils # 0.3 K/mm3 (0.0-0.4); Eosinophils % 2.8 % (0.1-12.0); Hematocrit 45.5 % (37.0-47.0); Hemoglobin 14.9 g/dL (12.2-16.2); Lymphocytes # 2.6 K/mm3 (0.7-4.5); Lymphocytes % 28.5 % (10-50); Mean Corpuscular HGB Conc 32.7 g/dL (31.8-35.4); Mean Corpuscular Hemoglobin 30.1 pg (27.0-31.2); Mean Corpuscular Volume 92.3 fl (81-99); Mean Platelet Volume 8.2 fl (7.4-10.4); Monocytes # 0.5 K/mm3 (0.1-1.0); Neutrophils # 5.8 K/mm3 (1.8-7.8); Neutrophils % 62.8 % (37.0-80.0); Platelet Count 327 K/mm3 (142-424); Red Blood Count 4.93 M/mm3 (4.20-5.40); Red Cell Distribution Width 13.5 % (11.5-17.5); White Blood Count 9.2 K/mm3 (4.8-10.8)
--- NOTE | 2020-10-31 16:41 | HMH.EDGENADL ---
ED Disposition Clinical Impression: Neck pain, Thyroid nodule Disposition: Home, Self-Care Condition on Discharge: Good Additional Instructions: Follow-up for your barium swallow as recommended. Otherwise return to the emergency department should you have worsening pain difficulty swallowing or any other concerns within 8 hours. Referrals: Mabel Jiménez APRN [Primary Care Provider] - - Critical Care Critical Care Time: No Attestation: On 10/31/20, the high probability of a clinically significant, sudden or life threatening deterioration of the following system(s) required my full and direct attention, intervention and personal management. The time I documented below is in addition to time spent performing reported procedures but includes the following listed in this critical care notation. Medical Decision Making - Medical Records Medical records reviewed: Yes: I reviewed the patient's medical records. - Kumar Inquiry Pt receiving controlled substance: No Vital Signs: 10/31/20 15:04 Temperature 98.5 F Temperature Source Oral Pulse Rate [Right] 100 H Respiratory Rate 16 Blood Pressure [Right Arm] 172/90 H Blood Pressure Mean [Right Arm] 117 Blood Pressure Source [Right Arm] Automatic Cuff Blood Pressure Position [Right Arm] Sitting 02 Sat by Pulse Oximetry 98 Oxygen Delivery Method Room Air - Lab Data Lab Results 10/31/20 15:22: WBC 9.2, RBC 4.93, Hgb 14.9, Hct 45.5, MCV 92.3, MCH 30.1, MCHC 32.7, RDW 13.5, Plt Count 327, MPV 8.2, Neut % (Auto) 62.8, Lymph % (Auto) 28.5, [place] % (Auto) 5.0, Eos % (Auto) 2.8, Baso % (Auto) 0.9, Neut # (Auto) 5.8, Lymph # (Auto) 2.6, [place] # (Auto) 0.5, Eos # (Auto) 0.3, Baso # (Auto) 0.1 10/31/20 15:22: Sodium 138, Potassium 4.2, Chloride 105, Carbon Dioxide 26, Anion Gap 11.2, BUN 9, Creatinine 0.60, Estimated Creat Clear 191, Estimated GFR 115, Est GFR ( Amer) 139, Glucose 101 H, Calcium 10.2, Total Bilirubin 0.4, AST 26, ALT 29, Alkaline Phosphatase 58, Total Protein 8.4 H, Albumin 4.7, Globulin 3.7 H, Albumin/Globulin Ratio 1.3 10/31/20 15:22: Serum HCG, Qual Negative Result diagrams: 10/31/20 15:22 10/31/20 15:22 Orders (Tests/Meds): ED MEDICATIONS Discontinued Medications Generic Name Dose Route Start Last Admin Trade Name Le PRN Reason Stop Dose Admin Sodium Chloride 1,000 mls @ 999 mls/hr 10/31/20 15:15 10/31/20 16:59 Sod Chlor 0.9% 1000ml Bag IV 10/31/20 16:15 999 mls/hr .Q1H1M ASHLEY Administration Iopamidol 75 ml 10/31/20 16:24 10/31/20 16:25 Iopamidol-370 (76%);100ml Bottle IV 10/31/20 16:25 75 ml ONCE ONE Administration Ketorolac Tromethamine 30 mg 10/31/20 15:01 10/31/20 16:59 Ketorolac 30mg/Ml Vial IV 10/31/20 15:02 30 mg ONCE ONE Administration Sodium Chloride 10 ml 10/31/20 16:24 10/31/20 16:25 Sodium Chloride 0.9% 10ml Syr (Rad Only) IV 10/31/20 16:25 10 ml ONCE ONE Administration ORDERS Category Date Time Status CT soft tissue neck w con Stat Cat Scan 10/31/20 15:01 Taken Medical Decision Narrative: 35-year-old female presents with right-sided neck pain as above. There is no obvious area of cellulitis or abscess. No concern for deep space infection on initial exam however CT with contrast obtained to evaluate for tumor versus infection. She is able to swallow and I think recommendation for outpatient barium swallow would be recommended pending work-up. Labs obtained as well. CT contrast only showed the thyroid nodule. Her pain is improved after Toradol and plan to discharge per recommendation General Adult HPI - General Chief complaint: PAIN Stated complaint: feels like something caught in throat Time Seen by Provider: 10/31/20 14:55 Mode of Arrival: Ambulatory Limitations: No Limitations Description of Symptoms (Recalled from ER Triage Doc. by RN): Pt advises she has been seeing Dr. Bentley for nodules on her thyroid and today she feels like she is having pain and
[2020-10-31 17:49] VITALS: BP 142/85; PULSE 85; RESP 17; TEMP 37; O2SAT 96
== END 2020-10-31 17:50 | disposition home or self-care (01) ==
PROVIDERS: Emergency Provider Emergency Medicine; PCP Nurse Practitioner Family
DX: M54.2 Cervicalgia (principal); E04.1 Nontoxic single thyroid nodule; F41.8 Other specified anxiety disorders; F17.210 Nicotine dependence, cigarettes, uncomplicated; Z79.899 Other long term (current) drug therapy
CPT/HCPCS: 70491; 80053; 84703; 85025; 96365; 96375; 99282; Q9967

== ENCOUNTER 2020-11-20 13:48 | Emergency (ER) | payer MEDICAID, SELFPAY ==
[2020-11-20 14:05] VITALS: BP 110/57; PULSE 68; RESP 18; TEMP 36.9; O2SAT 99; BMI 35.4
--- NOTE | 2020-11-20 14:30 | HMH.EDUTC ---
[facility] – [place] Disposition Clinical Impression: Right otitis externa Qualifiers: Otitis externa type: unspecified type Chronicity: acute Qualified Code(s): H60.501 - Unspecified acute noninfective otitis externa, right ear Disposition: Home, Self-Care Condition on Discharge: Good Instructions: Otitis Externa, DI for Otitis Externa Additional Instructions: Use the ear drops as directed. Drink plenty of fluids. Take tylenol or ibuprofen for pain or fever. Follow up with your regular doctor. GO TO THE ER FOR ANY WORSENING SYMPTOMS Prescriptions: Neomycin/Polymyxin B Sulf/Hc [Qxjbhycd-Tidfwrqpj-BI Otic Susp 10mL] 3 drops EAR-RIGHT TID 7 Days #1 bottle Transmission Status: Received by [id number] Referrals: Mabel Jiménez APRN [Primary Care Provider] - Time of Disposition: 14:35 Medical Decision Making - Medical Records Medical records reviewed: No: I reviewed the patient's medical records. - Kumar Inquiry Pt receiving controlled substance: No Vital Signs: 11/20/20 14:05 11/20/20 14:37 Temperature 98.5 F 98.5 F Temperature Source Oral Pulse Rate 68 Pulse Rate [Right Brachial] 68 Respiratory Rate 18 18 Blood Pressure 110/57 L Blood Pressure [Right Arm] 110/57 L Blood Pressure Mean [Right Arm] 74 Blood Pressure Source [Right Arm] Automatic Cuff Blood Pressure Position [Right Arm] Sitting 02 Sat by Pulse Oximetry 99 Oxygen Delivery Method Room Air [facility] [place] HPI - General Stated complaint: Blood coming from ht ear Time Seen by Provider: 11/20/20 14:30 - History of Present Illness Provider Complaint: She c/o right ear pain and right ear discharge since yesterday. She denies any injury. She denies any complaints with her other ear. She denies any decreased hearing, fever, chills or other complaints. - Related Data Home Medications Medication Instructions Recorded Confirmed duloxetine 30 mg capsule,delayed 30 mg PO DAILY 02/23/19 10/31/20 release Meloxicam 15 mg PO DAILY 11/06/19 10/31/20 omega-3 fatty acids-fish oil 340 1 cap PO BID cap 09/21/20 10/31/20 mg-1,000 mg capsule omeprazole 40 mg capsule,delayed 40 mg PO DAILY cap 09/21/20 10/31/20 release Ibuprofen [Ibuprofen 600mg 600 mg PO TID PRN 09/28/20 10/31/20 Tablet] Mecobalamin [B12 Active] 1,000 mcg PO DAILY 09/28/20 10/31/20 cetirizine 10 mg tablet 10 mg PO tab 10/31/20 10/31/20 diclofenac sodium 75 mg 75 mg PO tab 10/31/20 10/31/20 tablet,delayed release fluticasone propionate 50 ml INTRANASAL 10/31/20 10/31/20 mcg/actuation nasal spray,suspension hydroxyzine HCl 10 mg tablet 10 mg PO tab 10/31/20 10/31/20 methocarbamol 500 mg tablet 500 mg PO tab 10/31/20 10/31/20 Previous Rx's Medication Instructions Recorded Hydrocod/Acet 5/325 mg [[place] 1 - 2 tab PO Q6HP PRN #17 tab 09/30/20 5/325mg tablet] Promethazine HCl [Phenergan 12.5mg 12.5 mg PO Q6H PRN #10 tab 09/30/20 tablet] Neomycin/Polymyxin B Sulf/Hc 3 drops EAR-RIGHT TID 7 Days #1 11/20/20 [Wrpxlpwx-Kpimonhtz-UU Otic Susp bottle 10mL] Allergies Allergy/AdvReac Type Severity Reaction Status Date / Time No Known Allergies Allergy Verified 10/31/20 14:16 [facility] History - Hepatitis A Screen Attestation statement:: This patient has been screened for Hepatitis A risk factors. I have reviewed the patient's past medical history: Yes Medical History: Reports:: Anxiety, Depression Denies:: Cancer, Diabetes Mellitus Type 1, Diabetes Mellitus Type 2, Internal Pacemaker, MRSA, Seizures Other Medical History: Denies: Blood Transfusion Reaction Other Surgeries: Yes: Cholecystectomy, Other. No: Pacemaker Amputation: No Fractures: No Comment: wisdom teeth - Social History Smoking Status: Current every day smoker Tobacco Type: cigarettes # Packs/Day (cigarettes): 1 Alcohol Intake: never Alcohol Intake Frequency:: holidays/special occasions only Substance Use Type: denies use Occupational Status: other H
[2020-11-20 14:37] VITALS: BP 110/57; PULSE 68; RESP 18; TEMP 36.9; O2SAT 99
== END 2020-11-20 14:43 | disposition home or self-care (01) ==
PROVIDERS: Emergency Provider Nurse Practitioner Family; PCP Nurse Practitioner Family
DX: H60.501 Unspecified acute noninfective otitis externa, right ear (principal); F41.8 Other specified anxiety disorders; F17.210 Nicotine dependence, cigarettes, uncomplicated
CPT/HCPCS: 99202; G0463

== ENCOUNTER 2020-11-28 16:20 | Emergency (ER) | payer MEDICAID, SELFPAY ==
[2020-11-28 17:06] VITALS: BP 145/87; PULSE 81; RESP 16; TEMP 36.5; O2SAT 99; BMI 35.4
--- NOTE | 2020-11-28 17:13 | HMH.EDUTC ---
[facility] [place] Disposition Clinical Impression: Bilateral foot pain, Bilateral leg pain Disposition: Home, Self-Care Condition on Discharge: Good Instructions: DI for Restless Legs Syndrome Additional Instructions: Stop the diclofenac that you are on. Start the mobic. It will say twice per day as needed on the label, but take it about 30 minutes before bed to see if it helps with your symptoms. If it is not helping after a few days of taking it, then please follow up. Follow up with your primary care physcian. GO TO THE ER FOR ANY WORSENING SYMPTOMS OR CONCERNS Prescriptions: Meloxicam [Mobic 7.5mg Tab] 7.5 mg PO BIDP PRN #30 tab PRN Reason: Moderate Pain Transmission Status: Received by [id number] Referrals: Mabel Jiménez APRN [Primary Care Provider] - Time of Disposition: 18:41 Medical Decision Making - Medical Records Medical records reviewed: No: I reviewed the patient's medical records. - Kumar Inquiry Pt receiving controlled substance: No Vital Signs: 11/28/20 17:06 11/28/20 18:45 Temperature 97.7 F 97.8 F Temperature Source Tympanic Tympanic Pulse Rate 79 Pulse Rate [Right] 81 Respiratory Rate 16 16 Blood Pressure 142/89 H Blood Pressure [Right Arm] 145/87 H Blood Pressure Mean [Right Arm] 106 Blood Pressure Source [Right Arm] Automatic Cuff Blood Pressure Position [Right Arm] Sitting 02 Sat by Pulse Oximetry 99 Oxygen Delivery Method Room Air - Lab Data Lab results reviewed: Yes: I reviewed the patient's lab results. Lab Results 11/28/20 18:00: WBC 9.9, RBC 4.54, Hgb 13.7, Hct 41.4, MCV 91.1, MCH 30.1, MCHC 33.0, RDW 13.1, Plt Count 281, MPV 8.3, Neut % (Auto) 62.5, Lymph % (Auto) 29.3, [place] % (Auto) 4.6, Eos % (Auto) 3.1, Baso % (Auto) 0.4, Neut # (Auto) 6.2, Lymph # (Auto) 2.9, [place] # (Auto) 0.5, Eos # (Auto) 0.3, Baso # (Auto) 0.0 11/28/20 18:00: Sodium 139, Potassium 4.0, Chloride 108 H, Carbon Dioxide 24, Anion Gap 11.0, BUN 9, Creatinine 0.60, Estimated Creat Clear 191, Estimated GFR 115, Est GFR ( Amer) 139, Glucose 92, Calcium 9.8, Total Bilirubin 0.3, AST 24, ALT 28, Alkaline Phosphatase 58, Total Protein 7.8, Albumin 4.4, Globulin 3.4 H, Albumin/Globulin Ratio 1.3, Vitamin B12 711, TSH 1.77 Result diagrams: 11/28/20 18:00 11/28/20 18:00 [facility] [place] HPI - General Stated complaint: pain in legs Time Seen by Provider: 11/28/20 17:14 Mode of Arrival: Ambulatory Source of Information: Patient Limitations: No Limitations Description of Symptoms (Recalled from Triage Doc. by RN): pt has had an ongoing problem with both of her legs being cold and tingling. pt came in for pain and burning in both legs and muscle weakness. she states her legs feel heavy. . one week ago her pcp put her on 70 mg of diclofenac with no relief. HEENT Symptoms (Recalled from RN notes): No Resp Symptoms (Recalled from RN notes): No Skin Symptoms (Recalled from RN notes): No MS Symptoms (Recalled from RN notes): Yes (bilateral leg pain from her hips down) Functional Status (Recalled from RN notes): na - History of Present Illness Provider Complaint: She states that she has been having the foot and leg issues for the past several months. She has been told by her pcp that she has restless leg syndrome. She was taking cymbalta for it, but she started lactating and it was stopped to see if that was the cause. Since stopping the cymbalta her symptoms have got worse. She was prescribed diclofenac by her pcp last week for these issues. She denies that it has helped any so far. - Related Data Home Medications Medication Instructions Recorded Confirmed duloxetine 30 mg capsule,delayed 30 mg PO DAILY 02/23/19 10/31/20 release Meloxicam 15 mg PO DAILY 11/06/19 10/31/20 omega-3 fatty acids-fish oil 340 1 cap PO BID cap 09/21/20 10/31/20 mg-1,000 mg capsule omeprazole 40 mg capsule,delayed 40 mg PO DAILY cap 09/21/20 10/31/20 release Ibuprofen [Ibuprofen 600mg 600 mg PO
[2020-11-28 18:11] LABS: Basophils % 0.4 % (0.1-2.0); Eosinophils # 0.3 K/mm3 (0.0-0.4); Eosinophils % 3.1 % (0.1-12.0); Hematocrit 41.4 % (37.0-47.0); Hemoglobin 13.7 g/dL (12.2-16.2); Lymphocytes # 2.9 K/mm3 (0.7-4.5); Lymphocytes % 29.3 % (10-50); Mean Corpuscular Hemoglobin 30.1 pg (27.0-31.2); Mean Corpuscular Volume 91.1 fl (81-99); Mean Platelet Volume 8.3 fl (7.4-10.4); Monocytes # 0.5 K/mm3 (0.1-1.0); Monocytes % 4.6 % (1.7-9.3); Neutrophils # 6.2 K/mm3 (1.8-7.8); Neutrophils % 62.5 % (37.0-80.0); Platelet Count 281 K/mm3 (142-424); Red Blood Count 4.54 M/mm3 (4.20-5.40); Red Cell Distribution Width 13.1 % (11.5-17.5); White Blood Count 9.9 K/mm3 (4.8-10.8)
[2020-11-28 18:17] LABS: Alanine Aminotransferase 28 U/L (12-78); Albumin Level 4.4 g/dl (3.5-5.0); Albumin/Globulin Ratio 1.3 (1.1-1.8); Alkaline Phosphatase 58 U/L (38-126); Aspartate Amino Transferase 24 U/L (14-36); Bilirubin,Total 0.3 mg/dl (0.2-1.3); Blood Urea Nitrogen 9 mg/dl (7-17); Calcium 9.8 mg/dl (8.4-10.2); Carbon Dioxide 24 mmol/L (22.0-30.0); Chloride 108 mmol/L (98-107); Creatinine Clearance Estimated 191 mL/min (50-200); Estimated Glomerular Filt Rate 115 ml/min (>60); GFR (African American) 139 ML/MIN (>60); Globulin 3.4 g/dL (1.3-3.2); Glucose 92 mg/dl (74-100); Sodium 139 mmol/L (136-145); Total Protein,Serum 7.8 g/dl (6.3-8.2)
[2020-11-28 18:45] VITALS: BP 142/89; PULSE 79; RESP 16; TEMP 36.6
[2020-11-28 18:49] LABS: Thyroid Stimulating Hormone 1.77 uIU/mL (0.465-4.68)
[2020-11-28 19:07] LABS: Vitamin B12 711 pg/mL (239-931)
== END 2020-11-28 18:45 | disposition home or self-care (01) ==
PROVIDERS: Emergency Provider Nurse Practitioner Family; PCP Nurse Practitioner Family
DX: M79.671 Pain in right foot (principal); M79.672 Pain in left foot; M79.604 Pain in right leg; M79.605 Pain in left leg; F41.8 Other specified anxiety disorders; F17.210 Nicotine dependence, cigarettes, uncomplicated
CPT/HCPCS: 80053; 82607; 84443; 85025; 99202; G0463

== ENCOUNTER 2020-12-12 20:28 | Emergency (ER) | payer MEDICAID, SELFPAY ==
[2020-12-12 20:30] VITALS: BP 126/78; PULSE 80; RESP 16; TEMP 36.7; O2SAT 98; BMI 35.4
--- NOTE | 2020-12-12 21:13 | XR_ITS ---
PROCEDURE: XR PELVIS 1-2V CLINICAL INDICATION: fall Pain COMPARISON: No exams were available for comparison TECHNIQUE: XR Pelvis AP View FINDINGS: No fracture or dislocation is evident. No significant degenerative change. No lytic or blastic change. IMPRESSION: No acute findings. Dictated by: Darren Fenton MD 12/15/2020 17:12 Darren Fenton MD in [place] 12/15/2020 17:13
[2020-12-12 21:20] LABS: Microscopic, Urine URINE MICROSCOPIC (MICROSCOPIC)
[2020-12-12 21:29] LABS: Appearance,Urine CLEAR (Clear); Bilirubin,Urine Negative (Negative); Blood, Urine Negative (Negative); Color,Urine YELLOW (Yellow); Glucose,Urine (UA) Negative (Negative); Ketones,Urine Negative (Negative); Leukocyte Esterase,Urine Negative (Negative); Nitrate,Urine Negative (Negative); Protein,Urine Negative (Negative); Specific Gravity, Urine 1.025 (1.005-1.030); Urobilinogen,Urine 0.2 EU/dl (0.2)
--- NOTE | 2020-12-12 21:38 | HMH.EDFALL ---
ED Disposition Clinical Impression: Lumbar radiculopathy, acute Coccyx contusion Qualifiers: Encounter type: initial encounter Qualified Code(s): S30.0XXA - Contusion of lower back and pelvis, initial encounter Disposition: Home, Self-Care Condition on Discharge: Good Instructions: DI for Lumbar Radiculopathy Additional Instructions: see pcp for follow up Prescriptions: predniSONE [Prednisone 20mg Tab] 20 mg PO BID #10 tab Transmission Status: Pending to [id number] Tizanidine HCl [Zanaflex 4mg tab] 4 mg PO TID PRN #21 tab PRN Reason: Muscle Spasm Transmission Status: Pending to [id number] Referrals: Mabel Jiménez APRN [Primary Care Provider] - - Critical Care Critical Care Time: No Attestation: On 12/12/20, the high probability of a clinically significant, sudden or life threatening deterioration of the following system(s) required my full and direct attention, intervention and personal management. The time I documented below is in addition to time spent performing reported procedures but includes the following listed in this critical care notation. Medical Decision Making - Medical Records Medical records reviewed: Yes: I reviewed the patient's medical records. - Kumar Inquiry Pt receiving controlled substance: No Vital Signs: 12/12/20 20:30 Temperature 98.1 F Temperature Source Oral Pulse Rate [Right Radial] 80 Respiratory Rate 16 Blood Pressure [Right Arm] 126/78 Blood Pressure Mean [Right Arm] 94 Blood Pressure Source [Right Arm] Automatic Cuff Blood Pressure Position [Right Arm] Supine 02 Sat by Pulse Oximetry 98 Oxygen Delivery Method Room Air - Lab Data Lab results reviewed: Yes: I reviewed the patient's lab results. Lab Results 12/12/20 21:15: Urine Color Yellow, Urine Appearance Clear, Urine pH 6.0, Ur Specific [place] 1.025, Urine Protein Negative, Urine Glucose (UA) Negative, Urine Ketones Negative, Urine Blood Negative, Urine Nitrate Negative, Urine Bilirubin Negative, Urine Urobilinogen 0.2, Ur Leukocyte Esterase Negative, Urine WBC Occasional, Ur Squamous Epith Cells 3-5, Urine Bacteria 1+ 12/12/20 21:15: Urine HCG, Qual Negative Orders (Tests/Meds): ED MEDICATIONS Discontinued Medications Generic Name Dose Route Start Last Admin Trade Name Freq PRN Reason Stop Dose Admin Dexamethasone Sodium Phosphate 8 mg 12/12/20 21:35 12/12/20 21:54 Dexamethasone 4mg/Ml 1ml Vial IM 12/12/20 21:36 8 mg ONCE ONE Administration Ketorolac Tromethamine 60 mg 12/12/20 21:35 12/12/20 21:54 Ketorolac 60mg/2ml Vial IM 12/12/20 21:36 60 mg ONCE ONE Administration ORDERS Category Date Time Status Pelvis XR 1-2 views [XR pelvis 1-2V] Stat Exams 12/12/20 21:13 Taken XR lumbar spine min 4V Stat Exams 12/12/20 21:39 Taken XR sacrum coccyx min 2V Stat Exams 12/12/20 21:38 Taken - Radiology Data #1 Image(s): L-Spine, Pelvis, Other (sacral) Image Reviewed: Yes I reviewed the patient's radiology image Preliminary Findings: No Fracture Seen Medical Decision Narrative: has pain and radicular pain with no fx will need mri and treatment Fall HPI - General Chief Complaint: Fall Stated Complaint: AO fall 12/07 leg pain back pain Time Seen by Provider: 12/12/20 21:38 Mode of Arrival: Ambulatory Source of Information: Patient, Medical Record Limitations: No Limitations Description of Symptoms (Recalled from ER Triage Doc. by RN): Pt reports falling last week when she slipped on 2 steps leaving the house. She is reporting bilat leg pain and tailbone pain. Pt denies LOC, denies hitting head, denies neck pain. Pt states it is the same pain she was seen in [facility] here on 11/28/20. - History of Present Illness HPI Narrative: slipped and fell a few days ago with pain to lumbar area with rad to lower ext bilat - no fever or cauda equina sx - MD complaint: fall Onset (ago): day(s) Fall from: down stairs (#) Fall witnesse
--- NOTE | 2020-12-12 21:38 | XR_ITS ---
PROCEDURE: XR SACRUM COCCYX MIN 2V CLINICAL INDICATION: fall Posttraumatic pain COMPARISON: No exams were available for comparison FINDINGS: No fracture or dislocation. Mild sclerosis of the SI joints on both sides. Other findings:None. IMPRESSION: 1. No acute finding. 2. Sacroiliitis Dictated by: Darren Fenton MD 12/13/2020 06:51 Darren Fenton MD in [place] 12/13/2020 06:51
--- NOTE | 2020-12-12 21:39 | XR_ITS ---
PROCEDURE: XR LUMBAR SPINE MIN 4V CLINICAL INDICATION: fall Posttraumatic pain COMPARISON: No exams were available for comparison FINDINGS: No fracture or dislocation. No lytic or blastic change. There is normal mineralization. Normal alignment. Minimal lumbar curvature convex right. Mild degenerative disc disease L5-S1. IMPRESSION: No acute findings. Dictated by: Darren Fenton MD 12/13/2020 06:58 Darren Fenton MD in [place] 12/13/2020 06:58
[2020-12-12 21:49] LABS: Urine Pregnancy, HCG Qual. Negative (Negative)
[2020-12-12 22:14] LABS: Bacteria,Urine 1+ /lpf; WBC,Urine Occasional #/hpf (0-3)
[2020-12-12 22:56] VITALS: BP 122/72; PULSE 73; RESP 16; TEMP 36.6; O2SAT 98
== END 2020-12-12 23:00 | disposition home or self-care (01) ==
PROVIDERS: Emergency Provider Emergency Medicine; PCP Nurse Practitioner Family
DX: S30.0XXA Contusion of lower back and pelvis, initial encounter (principal); M54.16 Radiculopathy, lumbar region; W10.9XXA Fall (on) (from) unspecified stairs and steps, initial encounter; Y92.019 Unspecified place in single-family (private) house as the place of occurrence of the external cause; F41.8 Other specified anxiety disorders; F17.210 Nicotine dependence, cigarettes, uncomplicated; Z79.899 Other long term (current) drug therapy
CPT/HCPCS: 72110; 72170; 72220; 81001; 81025; 96372; 99282

== ENCOUNTER 2021-01-23 15:59 | Emergency (ER) | payer MEDICAID, SELFPAY ==
[2021-01-23 16:11] VITALS: BP 105/68; PULSE 87; RESP 16; TEMP 37.2; O2SAT 97; BMI 38.9
[2021-01-23 16:21] LABS: UTC Strep Screen (Rapid) Negative (Negative)
--- NOTE | 2021-01-23 16:25 | HMH.EDUTC ---
[facility] [place] Disposition Clinical Impression: Pharyngitis Qualifiers: Pharyngitis/tonsillitis etiology: unspecified etiology Qualified Code(s): J02.9 - Acute pharyngitis, unspecified Disposition: Home, Self-Care Condition on Discharge: Good Instructions: Sore Throat, Throat Culture, DI for Pharyngitis/Tonsillopharyngitis -- Adult Additional Instructions: Drink plenty of fluids. Take tylenol or ibuprofen for pain or fever. Take the medications as directed. Follow up with your regular doctor. GO TO THE ER FOR ANY WORSENING SYMPTOMS Prescriptions: Amoxicillin [Amoxicillin 875MG Tab] 875 mg PO Q12H #20 tab Transmission Status: Received by [email or web address] #[id number] predniSONE [Deltasone 10mg tablet] 10 mg PO BID 3 Days #6 tab Transmission Status: Received by [email or web address] #[id number] Referrals: Mabel Jiménez APRN [Primary Care Provider] - Time of Disposition: 16:35 Medical Decision Making - Medical Records Medical records reviewed: No: I reviewed the patient's medical records. - Kumar Inquiry Pt receiving controlled substance: No Vital Signs: 01/23/21 16:11 01/23/21 16:46 Temperature 98.9 F 98.9 F Temperature Source Oral Pulse Rate 87 Pulse Rate [Right] 87 Respiratory Rate 16 16 Blood Pressure 107/73 L Blood Pressure [Right Arm] 105/68 L Blood Pressure Mean [Right Arm] 80 Blood Pressure Source [Right Arm] Automatic Cuff Blood Pressure Position [Right Arm] Sitting 02 Sat by Pulse Oximetry 97 - Lab Data Lab results reviewed: Yes: I reviewed the patient's lab results. Lab Results 01/23/21 16:19: Strep Scn Rapid Clinic Negative Orders (Tests/Meds): ORDERS Category Date Time Status Strep Screen Confirmation Stat Micro 01/23/21 16:19 Received [facility] [place] HPI - General Stated complaint: sore throat Time Seen by Provider: 01/23/21 16:26 Mode of Arrival: Ambulatory Source of Information: Patient Limitations: No Limitations Description of Symptoms (Recalled from Triage Doc. by RN): sore throat HEENT Symptoms (Recalled from RN notes): Yes (sore throat) Resp Symptoms (Recalled from RN notes): No Skin Symptoms (Recalled from RN notes): No MS Symptoms (Recalled from RN notes): No Functional Status (Recalled from RN notes): na - History of Present Illness Provider Complaint: She reports that for the past 3 days she has had a sore throat. She states that she thinks that she has strep throat. She denies any contact with covid-19. - Related Data Home Medications Medication Instructions Recorded Confirmed duloxetine 30 mg capsule,delayed 30 mg PO DAILY 02/23/19 10/31/20 release Meloxicam 15 mg PO DAILY 11/06/19 10/31/20 omega-3 fatty acids-fish oil 340 1 cap PO BID cap 09/21/20 10/31/20 mg-1,000 mg capsule omeprazole 40 mg capsule,delayed 40 mg PO DAILY cap 09/21/20 10/31/20 release Ibuprofen [Ibuprofen 600mg 600 mg PO TID PRN 09/28/20 10/31/20 Tablet] Mecobalamin [B12 Active] 1,000 mcg PO DAILY 09/28/20 10/31/20 cetirizine 10 mg tablet 10 mg PO tab 10/31/20 10/31/20 diclofenac sodium 75 mg 75 mg PO tab 10/31/20 10/31/20 tablet,delayed release fluticasone propionate 50 ml INTRANASAL 10/31/20 10/31/20 mcg/actuation nasal spray,suspension hydroxyzine HCl 10 mg tablet 10 mg PO tab 10/31/20 10/31/20 methocarbamol 500 mg tablet 500 mg PO tab 10/31/20 10/31/20 Previous Rx's Medication Instructions Recorded Hydrocod/Acet 5/325 mg [[place] 1 - 2 tab PO Q6HP PRN #17 tab 09/30/20 5/325mg tablet] Promethazine HCl [Phenergan 12.5mg 12.5 mg PO Q6H PRN #10 tab 09/30/20 tablet] Neomycin/Polymyxin B Sulf/Hc 3 drops EAR-RIGHT TID 7 Days #1 11/20/20 [Ucvhxjvt-Utkmxyban-DX Otic Susp bottle 10mL] Meloxicam [Mobic 7.5mg Tab] 7.5 mg PO BIDP PRN #30 tab 11/28/20 Tizanidine HCl [Zanaflex 4mg 4 mg PO TID PRN #21 tab 12/12/20 tab] predniSONE [Prednisone 20mg 20 mg PO BID #10 tab 12/12/20 Tab] Amoxicillin [Amoxicillin 875MG 875 mg PO Q12H #20
[2021-01-23 16:46] VITALS: BP 107/73; PULSE 87; RESP 16; TEMP 37.2
== END 2021-01-23 16:48 | disposition home or self-care (01) ==
PROVIDERS: Emergency Provider Nurse Practitioner Family; PCP Nurse Practitioner Family
DX: J02.9 Acute pharyngitis, unspecified (principal); F41.8 Other specified anxiety disorders; F17.210 Nicotine dependence, cigarettes, uncomplicated; Z20.822 Contact with and (suspected) exposure to COVID-19; K21.9 Gastro-esophageal reflux disease without esophagitis
CPT/HCPCS: 87880; 99202; G0463; U0003

== ENCOUNTER 2021-01-31 12:48 | Emergency (ER) | payer MEDICAID, SELFPAY ==
[2021-01-31 13:00] VITALS: BP 121/76; PULSE 77; RESP 19; TEMP 37; O2SAT 99; BMI 39.4
--- NOTE | 2021-01-31 13:16 | HMH.EDUTC ---
[facility] Disposition Clinical Impression: Headache Qualifiers: Headache type: unspecified Headache chronicity pattern: unspecified pattern Intractability: not intractable Qualified Code(s): R51.9 - Headache, unspecified Disposition: Still a Patient Condition on Discharge: Good Referrals: Mabel Jiménez APRN [Primary Care Provider] - Time of Disposition: 13:22 Medical Decision Making - Kumar Inquiry Pt receiving controlled substance: No Kumar was queried for this patient: No Vital Signs: 01/31/21 13:00 Temperature 98.6 F Temperature Source Oral Pulse Rate [Right Brachial] 77 Respiratory Rate 19 Blood Pressure [Right Arm] 121/76 Blood Pressure Mean [Right Arm] 91 Blood Pressure Source [Right Arm] Automatic Cuff Blood Pressure Position [Right Arm] Sitting 02 Sat by Pulse Oximetry 99 Oxygen Delivery Method Room Air Medical Decision Narrative: Due to patient having headache with dizziness, seeing floaters, trouble concentrating and not feeling right recommended transfer to the ED for further work up and evaluation and patient agreed Called ED spoke with staff and patient was moved to room 9 without complications [facility] HPI - General Stated complaint: headache, dizziness Time Seen by Provider: 01/31/21 13:10 Mode of Arrival: Ambulatory Source of Information: Patient Limitations: No Limitations Description of Symptoms (Recalled from Triage Doc. by RN): PATIENT C/O HEADACHE, DIZZINESS, LIGHT-HEADED, DIFFICULTY FOCUSING/CONCENTRATING, AND FLOATERS X 3 DAYS HEENT Symptoms (Recalled from RN notes): Yes Resp Symptoms (Recalled from RN notes): No Skin Symptoms (Recalled from RN notes): No MS Symptoms (Recalled from RN notes): No Functional Status (Recalled from RN notes): WNL - History of Present Illness Provider Complaint: Patient states that she has had an achy like headache for about 3-4 days State that she has been having dizziness, seeing floaters and having trouble concentrating State that last night her son was talking to her and she knew he was talking but was having trouble comprehending what he was saying andhe had to repeat himself several times States that she doesnt feel like herself - Related Data Home Medications Medication Instructions Recorded Confirmed duloxetine 30 mg capsule,delayed 30 mg PO DAILY 02/23/19 10/31/20 release Meloxicam 15 mg PO DAILY 11/06/19 10/31/20 omega-3 fatty acids-fish oil 340 1 cap PO BID cap 09/21/20 10/31/20 mg-1,000 mg capsule omeprazole 40 mg capsule,delayed 40 mg PO DAILY cap 09/21/20 10/31/20 release Ibuprofen [Ibuprofen 600mg 600 mg PO TID PRN 09/28/20 10/31/20 Tablet] Mecobalamin [B12 Active] 1,000 mcg PO DAILY 09/28/20 10/31/20 cetirizine 10 mg tablet 10 mg PO tab 10/31/20 10/31/20 diclofenac sodium 75 mg 75 mg PO tab 10/31/20 10/31/20 tablet,delayed release fluticasone propionate 50 ml INTRANASAL 10/31/20 10/31/20 mcg/actuation nasal spray,suspension hydroxyzine HCl 10 mg tablet 10 mg PO tab 10/31/20 10/31/20 methocarbamol 500 mg tablet 500 mg PO tab 10/31/20 10/31/20 Previous Rx's Medication Instructions Recorded Hydrocod/Acet 5/325 mg [[place] 1 - 2 tab PO Q6HP PRN #17 tab 09/30/20 5/325mg tablet] Promethazine HCl [Phenergan 12.5mg 12.5 mg PO Q6H PRN #10 tab 09/30/20 tablet] Neomycin/Polymyxin B Sulf/Hc 3 drops EAR-RIGHT TID 7 Days #1 11/20/20 [Kyptlghb-Vdnonopxr-BD Otic Susp bottle 10mL] Meloxicam [Mobic 7.5mg Tab] 7.5 mg PO BIDP PRN #30 tab 11/28/20 Tizanidine HCl [Zanaflex 4mg 4 mg PO TID PRN #21 tab 12/12/20 tab] predniSONE [Prednisone 20mg 20 mg PO BID #10 tab 12/12/20 Tab] Amoxicillin [Amoxicillin 875MG 875 mg PO Q12H #20 tab 01/23/21 Tab] predniSONE [Deltasone 10mg tablet] 10 mg PO BID 3 Days #6 tab 01/23/21 Allergies Allergy/AdvReac Type Severity Reaction Status Date / Time No Known Allergies Allergy Verified 01/23/21 16:11 - Worker's Comp Is this a Work
--- NOTE | 2021-01-31 13:18 | HMH.EDGENADL ---
ED Disposition Clinical Impression: Headache Qualifiers: Headache type: unspecified Headache chronicity pattern: unspecified pattern Intractability: not intractable Qualified Code(s): R51.9 - Headache, unspecified Disposition: Still a Patient Condition on Discharge: Good Referrals: Mabel Jiménez APRN [Primary Care Provider] - 3 days Time of Disposition: 14:54 - Critical Care Critical Care Time: No Attestation: On 01/31/21, the high probability of a clinically significant, sudden or life threatening deterioration of the following system(s) required my full and direct attention, intervention and personal management. The time I documented below is in addition to time spent performing reported procedures but includes the following listed in this critical care notation. Medical Decision Making - Kumar Inquiry Pt receiving controlled substance: No Vital Signs: 01/31/21 13:00 01/31/21 13:19 Temperature 98.6 F 98.1 F Temperature Source Oral Oral Pulse Rate [Right Brachial] 77 85 Respiratory Rate 19 18 Blood Pressure [Right Arm] 121/76 137/83 Blood Pressure Mean [Right Arm] 91 101 Blood Pressure Source [Right Arm] Automatic Cuff Blood Pressure Position [Right Arm] Sitting 02 Sat by Pulse Oximetry 99 97 Oxygen Delivery Method Room Air - Lab Data Lab results reviewed: Yes: I reviewed the patient's lab results. Lab Results 01/31/21 13:55: Urine Color Yellow, Urine Appearance Clear, Urine pH 6.0, Ur Specific [place] 1.010, Urine Protein Negative, Urine Glucose (UA) Negative, Urine Ketones Negative, Urine Blood Negative, Urine Nitrate Negative, Urine Bilirubin Negative, Urine Urobilinogen 0.2, Ur Leukocyte Esterase Negative, Urine RBC None, Urine WBC 3-5, Ur Squamous Epith Cells Occasional, Urine Bacteria None 01/31/21 13:55: Urine HCG, Qual Negative 01/31/21 14:10: WBC 9.4, RBC 5.09, Hgb 14.9, Hct 45.7, MCV 89.8, MCH 29.3, MCHC 32.7, RDW 13.1, Plt Count 334, MPV 7.7, Neut % (Auto) 62.9, Lymph % (Auto) 28.7, [place] % (Auto) 4.5, Eos % (Auto) 3.3, Baso % (Auto) 0.6, Neut # (Auto) 5.9, Lymph # (Auto) 2.7, [place] # (Auto) 0.4, Eos # (Auto) 0.3, Baso # (Auto) 0.1 01/31/21 14:10: Sodium 138, Potassium 4.0, Chloride 106, Carbon Dioxide 23, Anion Gap 13.0, BUN 7, Creatinine 0.90, Estimated Creat Clear 127, Estimated GFR 72, Est GFR ( Amer) 87, Glucose 91, Calcium 9.7, Total Bilirubin 0.6, AST 30, ALT 31, Alkaline Phosphatase 64, Total Protein 7.9, Albumin 4.8, Globulin 3.1, Albumin/Globulin Ratio 1.5 Result diagrams: 01/31/21 14:10 01/31/21 14:10 - CT Data CT Scan: Head Time Received: 14:15 Preliminary Findings: Normal/NAD Medical Decision Narrative: 35yo F evaluated for headache and pressure in her head. Patient in no acute distress initial evaluation. Basic labs and CT of the head ordered. Labs are unremarkable. CT of the head shows no acute intracranial process. Discussed with the patient the need for PCP follow-up. An MRI is warranted but cannot be ordered through the ER as it is not urgent/emergent. General Adult HPI - General Stated complaint: headache, dizziness Time Seen by Provider: 01/31/21 13:18 Mode of Arrival: Ambulatory Source of Information: Patient Limitations: No Limitations Description of Symptoms (Recalled from ER Triage Doc. by RN): PATIENT C/O HEADACHE, DIZZINESS, LIGHT-HEADED, DIFFICULTY FOCUSING/CONCENTRATING, AND FLOATERS X 3 DAYS - History of Present Illness HPI narrative: 35yo F reports the emergency department secondary to continuous headache and pressure sensation. Patient reports she has been seen by an coffee shop manager secondary to inappropriate lactating and was concerned she might have an intracranial process. They initially wanted to order an MRI but then would change their mind and not order the MRI. Patient reports taking typical, [id number] medication for headache with no improvement. Patient reports she is attempted to get in with her PCP but they do not have ap
[2021-01-31 13:19] VITALS: BP 137/83; PULSE 85; RESP 18; TEMP 36.7; O2SAT 97; BMI 35.4
--- NOTE | 2021-01-31 13:19 | CT_ITS ---
PROCEDURE: CT HEAD/BRAIN WO CON CLINICAL INDICATION: headache Severe headache with dizziness COMPARISON: No exams were available for comparison TECHNIQUE: Axial images obtained. All CT scans at the facility use one or more dose reduction, viz: automated exposure control, ma/kV adjustment per patient size (including targeted exams where dose is matched to indication, i.e. head), or iterative reconstruction technique. FINDINGS: No midline shift, mass effect, intracranial hemorrhage, hydrocephalus, or extra-axial fluid collection is evident. Mucosal thickening is present in the right frontal and ethmoid region. No sinus air-fluid level evident. The calvarium has an unremarkable appearance. No mastoid effusion. No sinus air-fluid level. There is prominence of the adenoids. IMPRESSION: 1. No acute intracranial findings. 2. Mild sinus disease. Mild prominence of the adenoids. Dictated by: Darren Fenton MD 01/31/2021 14:15 Darren Fenton MD in [facility] 01/31/2021 14:16
--- NOTE | 2021-01-31 13:38 | ECG_ITS ---
APPROVED REPORT Exam: Resting ECG HR:73 bpm ECG Measurements Heart Rate 73 AXES MI 162 P 34 QRSd 84 QRS 27 QT 384 T 27 QTc 423 Conclusion Normal sinus rhythm Late R wave progression, unchanged from prior Otherwise normal ECG Electronically signed by : Ray Garcia, 02/02/2021 13:58:35
[2021-01-31 14:09] LABS: Microscopic, Urine URINE MICROSCOPIC (MICROSCOPIC)
[2021-01-31 14:12] LABS: Appearance,Urine CLEAR (Clear); Bilirubin,Urine Negative (Negative); Blood, Urine Negative (Negative); Color,Urine YELLOW (Yellow); Glucose,Urine (UA) Negative (Negative); Ketones,Urine Negative (Negative); Leukocyte Esterase,Urine Negative (Negative); Nitrate,Urine Negative (Negative); Protein,Urine Negative (Negative); Urobilinogen,Urine 0.2 EU/dl (0.2)
[2021-01-31 14:17] LABS: Urine Pregnancy, HCG Qual. Negative (Negative)
[2021-01-31 14:19] LABS: Basophils # 0.1 K/mm3 (0-0.2); Basophils % 0.6 % (0.1-2.0); Eosinophils # 0.3 K/mm3 (0.0-0.4); Eosinophils % 3.3 % (0.1-12.0); Hematocrit 45.7 % (37.0-47.0); Hemoglobin 14.9 g/dL (12.2-16.2); Lymphocytes # 2.7 K/mm3 (0.7-4.5); Lymphocytes % 28.7 % (10-50); Mean Corpuscular HGB Conc 32.7 g/dL (31.8-35.4); Mean Corpuscular Hemoglobin 29.3 pg (27.0-31.2); Mean Corpuscular Volume 89.8 fl (81-99); Mean Platelet Volume 7.7 fl (7.4-10.4); Monocytes # 0.4 K/mm3 (0.1-1.0); Monocytes % 4.5 % (1.7-9.3); Neutrophils # 5.9 K/mm3 (1.8-7.8); Neutrophils % 62.9 % (37.0-80.0); Platelet Count 334 K/mm3 (142-424); Red Blood Count 5.09 M/mm3 (4.20-5.40); Red Cell Distribution Width 13.1 % (11.5-17.5); White Blood Count 9.4 K/mm3 (4.8-10.8)
[2021-01-31 14:20] LABS: Squamous Epithelial Cell,Urine Occasional #/hpf (0-5)
[2021-01-31 14:28] LABS: Chloride 106 mmol/L (98-107); Sodium 138 mmol/L (136-145)
[2021-01-31 14:31] LABS: Alanine Aminotransferase 31 U/L (12-78); Albumin Level 4.8 g/dl (3.5-5.0); Albumin/Globulin Ratio 1.5 (1.1-1.8); Alkaline Phosphatase 64 U/L (38-126); Aspartate Amino Transferase 30 U/L (14-36); Bilirubin,Total 0.6 mg/dl (0.2-1.3); Blood Urea Nitrogen 7 mg/dl (7-17); Carbon Dioxide 23 mmol/L (22.0-30.0); Creatinine Clearance Estimated 127 mL/min (50-200); Estimated Glomerular Filt Rate 72 ml/min (>60); GFR (African American) 87 ML/MIN (>60); Globulin 3.1 g/dL (1.3-3.2); Total Protein,Serum 7.9 g/dl (6.3-8.2)
[2021-01-31 14:32] LABS: Calcium 9.7 mg/dl (8.4-10.2); Glucose 91 mg/dl (74-100)
[2021-01-31 15:02] VITALS: BP 118/71; PULSE 81; RESP 18; TEMP 36.7; O2SAT 97
== END 2021-01-31 15:02 | disposition still patient (30) ==
LOC: UTC 12:51 → ER 13:13
PROVIDERS: Emergency Provider Family Medicine; PCP Nurse Practitioner Family
DX: R51.9 Headache, unspecified (principal); R42 Dizziness and giddiness; F41.8 Other specified anxiety disorders; F17.210 Nicotine dependence, cigarettes, uncomplicated
CPT/HCPCS: 70450; 80053; 81001; 81025; 85025; 93005; 99282

== ENCOUNTER → 2021-02-21 16:17 | Outpatient (CLI) | payer MEDICAID, SELFPAY ==
[2021-02-21 17:18] LABS: Blood Urea Nitrogen 5 mg/dl (7-17); Estimated Glomerular Filt Rate 115 ml/min (>60); GFR (African American) 139 ML/MIN (>60)
== END ==
PROVIDERS: Visit Provider Otolaryngology
DX: Z01.818 Encounter for other preprocedural examination (principal)
CPT/HCPCS: 36415; 82565; 84520

== ENCOUNTER → 2021-02-24 09:57 | Outpatient (CLI) | payer MEDICAID, SELFPAY ==
--- NOTE | 2021-02-24 10:03 | CT_ITS ---
PROCEDURE: CT SOFT TISSUE NECK WO/W CON CLINICAL HISTORY: POSSIBLE NASAFRAYNGIAL LESION COMPARISON: CT CT SOFT TISSUE NECK W CON from 10/31/[address] HEAD/BRAIN WO CON from 01/31/2021 TECHNIQUE: Oral Contrast: None IV Contrast: 75 mL Isovue 370 Axial images obtained with sagittal and coronal reformats. All CT scans at the facility use one or more dose reduction, viz: automated exposure control, ma/kV adjustment per patient size (including targeted exams where dose is matched to indication, i.e. head), or iterative reconstruction technique. FINDINGS: There is minimal prominence of the adenoids. Slight increased soft tissues in the right fossa of Rosenmuller region and eustachian tube region. This is nonspecific. The uvula and parapharyngeal soft tissues have an unremarkable appearance. Previously there was asymmetric density in the left vallecular region. This is no longer apparent. The epiglottis and glottic region have an unremarkable appearance. The thyroid gland has an unremarkable appearance. Unremarkable appearing upper mediastinum. There are few scattered small cervical lymph nodes but no dominant adenopathy. The globes, parotid glands, and submandibular glands are unremarkable. Unremarkable appearing TMJs. No acute bony findings. No mastoid effusion or sinus air-fluid level. No nasal septal deviation or significant sinus mucosal thickening IMPRESSION: 1. Only minimal prominence of the adenoids improved since 01/31/2021. 2. Minimal asymmetry with some increased soft tissue density in the right nasopharyngeal region. This is nonspecific and could be due to nondistention or mild lymphoid hyperplasia. No enhancing lesions are evident at this region. 3. Previously noted area of enhancement and asymmetric density in the left vallecula is no longer apparent. Dictated by: Darren Fenton MD 02/24/2021 12:14 Darren Fenton MD in [facility] 02/24/2021 12:14
== END ==
PROVIDERS: PCP Nurse Practitioner Family; Visit Provider Otolaryngology
DX: J39.2 Other diseases of pharynx (principal)
CPT/HCPCS: 70492; Q9967

== ENCOUNTER 2021-05-04 10:50 | Emergency (ER) | payer MEDICAID, SELFPAY ==
[2021-05-04 10:55] VITALS: BP 142/90; PULSE 98; RESP 21; TEMP 37; O2SAT 99; BMI 38.2
--- NOTE | 2021-05-04 11:18 | HMH.EDUTC ---
[facility] [place] Impression: Urinary frequency Disposition: Home, Self-Care Condition on Discharge: Good Additional Instructions: Keep a record of your urination patterns for a few days. Write down the number of times you urinate over 24 hours, the amount, and if you have urine leakage. Record how strong the urge to urinate was each time. Your healthcare provider may also want you to record the type and amount of liquids you drink. Train your bladder. Go to the bathroom at set times, such as every 2 hours, even if you do not feel the urge to go. You can also try to hold your urine when you feel the urge to go. For example, hold your urine for 5 minutes when you feel the urge to go. As that becomes easier, hold your urine for 10 minutes. Work up to every 3 or 4 hours to help control your bladder. Limit liquids as directed. Limit liquids to decrease the amount you urinate. Ask how much liquid to drink each day and which liquids are best for you. You may need to avoid drinking liquids several hours before you go to sleep. Your healthcare provider may also recommend that you limit caffeine and alcohol. Do Kegel exercises often. Kegel exercises help strengthen your pelvic muscles and improve bladder control. These muscles help you stop urinating. Squeeze these muscles tightly for 5 seconds like you are trying to stop the flow of urine. Then relax for 5 seconds. Gradually work up to squeezing for 10 seconds. Do 3 sets of 15 repetitions a day, or as directed. Follow up with your Family Doctor as needed Follow up with Dr Jain in Urology for further evaluation and testing Return if needed Straight to ER if any life threatening symptoms Referrals: Mabel Jiménez APRN [Primary Care Provider] - As needed Wyatt Jain MD [Staff Physician] - 05/16/21 10:30 am Time of Disposition: 11:38 Medical Decision Making - Kumar Inquiry Pt receiving controlled substance: No Kumar was queried for this patient: No Vital Signs: 05/04/21 10:55 05/04/21 11:36 Temperature 98.6 F 98.6 F Temperature Source Oral Pulse Rate 98 H Pulse Rate [Right Brachial] 98 H Respiratory Rate 21 21 Blood Pressure 142/90 H Blood Pressure [Right Arm] 142/90 H Blood Pressure Mean [Right Arm] 107 Blood Pressure Source [Right Arm] Automatic Cuff Blood Pressure Position [Right Arm] Sitting 02 Sat by Pulse Oximetry 99 Oxygen Delivery Method Room Air - Lab Data Lab results reviewed: Yes: I reviewed the patient's lab results. Lab Results 05/04/21 10:54: Urine Color Yellow, Urine Appearance Clear, Urine pH 6.0, Ur Specific [place] 1.010, Urine Protein Negative, Urine Glucose (UA) Negative, Urine Ketones Negative, Urine Blood Negative, Urine Nitrate Negative, Urine Bilirubin Negative, Urine Urobilinogen 0.2, Ur Leukocyte Esterase Negative Medical Decision Narrative: Spoke with Dr Jain office and made appointment for further evaluation and treatment [facility] [place] - General Stated complaint: possible uti Time Seen by Provider: 05/04/21 11:23 Mode of Arrival: Ambulatory Source of Information: Patient Limitations: No Limitations Description of Symptoms (Recalled from Triage Doc. by RN): PATIENT C/O FREQUENT URINATION, STOMACH PAIN, AND YELLOW DISHCARGE SINCE YESTERDAY HEENT Symptoms (Recalled from RN notes): No Resp Symptoms (Recalled from RN notes): No Skin Symptoms (Recalled from RN notes): No MS Symptoms (Recalled from RN notes): No Functional Status (Recalled from RN notes): WNL - History of Present Illness Provider Complaint: Patient states that she has been having urinary frequency for several weeks now and she seen her PCP last week because she had some yellowish colored discharge and achy like feeling in her lower abdomen right before urination State that her PCP did STD tested and it was negative and she put her on pyridium and had her go to the OBGYN States that she saw them too and everything came out negative and no finding but she has still co
[2021-05-04 11:24] LABS: Apearance,Urine Clear (Clear); Bilirubin,Urine Negative (Negative); Blood, Urine Negative (Negative); Color,Urine Yellow (Yellow); Glucose,Urine (UA) Negative (Negative); Ketones,Urine Negative (Negative); Protein,Urine Negative (Negative)
[2021-05-04 11:25] LABS: UTC Leukocyte Esterase,Urine Negative (Negative); UTC Nitrate,Urine Negative (Negative); Urobilinogen,Urine 0.2 EU/dl (0.2)
[2021-05-04 11:36] VITALS: BP 142/90; PULSE 98; RESP 21; TEMP 37; O2SAT 99
== END 2021-05-04 11:42 | disposition home or self-care (01) ==
PROVIDERS: Emergency Provider Nurse Practitioner; PCP Nurse Practitioner Family
DX: R35.0 Frequency of micturition (principal); F41.8 Other specified anxiety disorders; Z79.899 Other long term (current) drug therapy
CPT/HCPCS: 81003; 99202; G0463

== ENCOUNTER → 2021-07-28 18:05 | Outpatient (CLI) | payer MEDICAID, SELFPAY ==
[2021-07-28 19:48] LABS: Thyroid Stimulating Hormone 1.81 uIU/mL (0.465-4.68)
[2021-07-28 20:06] LABS: Vitamin B12 874 pg/mL (239-931)
== END ==
PROVIDERS: Visit Provider Nurse Practitioner Family
DX: K12.1 Other forms of stomatitis (principal)
CPT/HCPCS: 82607; 84443

== ENCOUNTER 2021-11-20 16:43 | Emergency (ER) | payer MEDICAID, SELFPAY ==
[2021-11-20 17:35] VITALS: BP 127/80; PULSE 62; RESP 18; TEMP 36.9; O2SAT 99; BMI 31.7
--- NOTE | 2021-11-20 18:12 | HMH.EDUTC ---
[facility] [place] Disposition Clinical Impression: Muscle spasm Disposition: Home, Self-Care Condition on Discharge: Good Instructions: Methocarbamol, DI for Muscle Spasm Additional Instructions: *Ibuprofen mitali 6 hours with meal as needed for pain/inflammation *Not additional anti-inflammatory like motrin, aleve, advil with the above amount of ibuprofen. You can still take Tylenol every 4 hours as needed if you need something else for pain *Ice 20 minutes every 2 hours for the first 48 hours after the initial injury followed by moist heat every 20 minutes 3-4 times a day to affected area *Muscle relaxer every 12 hours as needed for muscle spasms but remember, it WILL cause drowsiness You cannot take it and drive, operate machinery or care for small children. *Keep this area active, no movement leads to more stiffness, However take it easy and avoid heavy lifting pushing or pulling *Follow up with you family doctor if no improvement for further treatment Prescriptions: methylPREDNISolone [Medrol 4mg tab] 4 mg PO DIRECTED #21 tab Transmission Status: Pending to [facility] #[id number] methocarbamoL [Methocarbamol] 750 mg PO BID PRN #10 tab PRN Reason: Muscle Spasm Transmission Status: Pending to [facility] #[id number] Referrals: Mabel Jiménez APRN [Primary Care Provider] - As needed Time of Disposition: 18:26 Medical Decision Making - Kumar Inquiry Pt receiving controlled substance: No Kumar was queried for this patient: No Vital Signs: 11/20/21 17:35 Temperature 98.5 F Temperature Source Oral Pulse Rate [Right Brachial] 62 Respiratory Rate 18 Blood Pressure [Right Arm] 127/80 Blood Pressure Mean [Right Arm] 95 Blood Pressure Source [Right Arm] Automatic Cuff Blood Pressure Position [Right Arm] Sitting 02 Sat by Pulse Oximetry 99 Oxygen Delivery Method Room Air - Lab Data Lab results reviewed: Yes: I reviewed the patient's lab results. [facility] [place] HPI - General Stated complaint: Neck pain no injury Time Seen by Provider: 11/20/21 18:12 Mode of Arrival: Ambulatory Source of Information: Patient Limitations: No Limitations Description of Symptoms (Recalled from Triage Doc. by RN): PATIENT C/O PAIN TO RIGHT SIDE OF NECK THAT RADIATES DOWN INTO COLLAR BONE X 2-3 DAYS. NO KNOWN INJURY HEENT Symptoms (Recalled from RN notes): No Resp Symptoms (Recalled from RN notes): No Skin Symptoms (Recalled from RN notes): No MS Symptoms (Recalled from RN notes): Yes Functional Status (Recalled from RN notes): WNL - History of Present Illness Provider Complaint: Patient states that she thinks she slept wrong and having muscle spasm in the right side of her neck that radiates down into her right shoulder with certain movements and when she tries to turn her head States that today she was still having pain so she came in Denies known injury - Related Data Home Medications Medication Instructions Recorded Confirmed Omeprazole Magnesium [Prilosec Otc 20 mg PO DAILY 11/20/21 11/20/21 20mg Tab] Sertraline HCl [Zoloft 50mg tablet] 50 mg PO DAILY 11/20/21 11/20/21 Previous Rx's Medication Instructions Recorded methocarbamoL [Methocarbamol] 750 mg PO BID PRN #10 tab 11/20/21 methylPREDNISolone [Medrol 4mg 4 mg PO DIRECTED #21 tab 11/20/21 tab] Allergies Allergy/AdvReac Type Severity Reaction Status Date / Time No Known Allergies Allergy Verified 02/27/21 15:46 - Worker's Comp Is this a Worker's Comp case?: No [facility] History - Hepatitis A Screen Drug use history?: No High risk sexual behaviors?: No History of sexually transmitted infection?: No Currently employed?: No Childcare worker?: No Do you have indoor plumbing?: Yes Do you have electricity?: Yes Attestation statement:: This patient has been screened for Hepatitis A risk factors. I have reviewed the patient's past medical history: Yes Medical History: Reports:: Anxiety, Depression Denies:: Cancer, Diabetes Mellitus Type 1,
[2021-11-20 18:24] LABS: UTC Pregnancy Test, Urine Negative (Negative)
[2021-11-20 18:28] VITALS: BP 127/80; PULSE 62; RESP 18; TEMP 36.9; O2SAT 99
== END 2021-11-20 18:35 | disposition home or self-care (01) ==
LOC: UTC 18:36
PROVIDERS: Emergency Provider Nurse Practitioner; PCP Nurse Practitioner Family
DX: M62.838 Other muscle spasm (principal); M54.2 Cervicalgia; F41.8 Other specified anxiety disorders; F17.210 Nicotine dependence, cigarettes, uncomplicated
CPT/HCPCS: 81025; 99202; G0463

== ENCOUNTER 2022-03-11 14:00 | Emergency (ER) | payer MEDICAID, SELFPAY ==
[2022-03-11 14:40] VITALS: BP 142/85; PULSE 76; RESP 19; TEMP 36.8; O2SAT 99; BMI 37.2
--- NOTE | 2022-03-11 14:54 | HMH.EDUTC ---
[facility] [place] Disposition Clinical Impression: Menorrhagia Qualifiers: Menorrhagia type: with irregular cycle Qualified Code(s): N92.1 - Excessive and frequent menstruation with irregular cycle Disposition: Home, Self-Care Condition on Discharge: Good Instructions: DI for Menorrhagia Additional Instructions: Drink plenty of fluids. Take tylenol or ibuprofen for pain or fever. Take the medications as directed. Follow up with your regular doctor. GO TO THE ER FOR ANY WORSENING SYMPTOMS Referrals: Ray Garcia MD [Primary Care Provider] - Time of Disposition: 15:30 Medical Decision Making - Medical Records Medical records reviewed: No: I reviewed the patient's medical records. - Kumar Inquiry Pt receiving controlled substance: No Vital Signs: 03/11/22 14:40 03/11/22 15:35 Temperature 98.3 F 98.3 F Temperature Source Oral Pulse Rate 76 Pulse Rate [Left Radial] 76 Respiratory Rate 19 19 Blood Pressure 142/85 H Blood Pressure [Right Arm] 142/85 H Blood Pressure Mean [Right Arm] 104 02 Sat by Pulse Oximetry 99 - Lab Data Lab results reviewed: Yes: I reviewed the patient's lab results. Lab Results 03/11/22 14:52: [facility] Negative 03/11/22 14:56: Serum HCG, Qual Negative [facility] [place] HPI - General Stated complaint: BRANDT, head congestion Time Seen by Provider: 03/11/22 14:54 Mode of Arrival: Ambulatory Source of Information: Patient Limitations: No Limitations Description of Symptoms (Recalled from Triage Doc. by RN): pt here with headache, tiredness, lower back pain, bleeding. pt is here to have blood work to see if she is . an at home urine test was negative HEENT Symptoms (Recalled from RN notes): No Resp Symptoms (Recalled from RN notes): No Skin Symptoms (Recalled from RN notes): No MS Symptoms (Recalled from RN notes): No Functional Status (Recalled from RN notes): wnl - History of Present Illness Provider Complaint: She has been having low back pain since yesterday. She started having a small amount of vaginal bleeding today. She took a home test because in the past she was one time when her back felt like this. The test was negative but she does not trust it. So she came here to have a blood test. - Related Data Home Medications Medication Instructions Recorded Confirmed Omeprazole Magnesium [Prilosec Otc 20 mg PO DAILY 11/20/21 11/20/21 20mg Tab] Sertraline HCl [Zoloft 50mg tablet] 50 mg PO DAILY 11/20/21 11/20/21 Previous Rx's Medication Instructions Recorded methocarbamoL [Methocarbamol] 750 mg PO BID PRN #10 tab 11/20/21 methylPREDNISolone [Medrol 4mg 4 mg PO DIRECTED #21 tab 11/20/21 tab] Allergies Allergy/AdvReac Type Severity Reaction Status Date / Time No Known Allergies Allergy Verified 02/27/21 15:46 - Worker's Comp Is this a Worker's Comp case?: No [facility] History - Hepatitis A Screen Attestation statement:: This patient has been screened for Hepatitis A risk factors. I have reviewed the patient's past medical history: Yes Medical History: Reports:: Anxiety, Depression Denies:: Cancer, Diabetes Mellitus Type 1, Diabetes Mellitus Type 2, Internal Pacemaker, MRSA, Seizures Other Medical History: Denies: Blood Transfusion Reaction Other Surgeries: Yes: Cholecystectomy, Other. No: Pacemaker Amputation: No Fractures: No Comment: wisdom teeth - Social History Smoking Status: Current every day smoker Tobacco Type: cigarettes # Packs/Day (cigarettes): 1 Alcohol Intake: never Alcohol Intake Frequency:: holidays/special occasions only Substance Use Type: denies use Occupational Status: other Housing: house Household Members: significant other - Psychiatric History Pschychiatric History:: Reports:: Anxiety, Depression Family Hx:: No significant family history ROS Obtained: Yes All systems reviewed & no additional complaints - Constitutional Constitutional: Reports system r
[2022-03-11 15:26] LABS: HCG Qualitative, Serum Negative (Negative)
[2022-03-11 15:35] VITALS: BP 142/85; PULSE 76; RESP 19; TEMP 36.8
[2022-03-11 19:03] LABS: UTC Pregnancy Test, Urine Negative (Negative)
== END 2022-03-11 15:36 | disposition home or self-care (01) ==
PROVIDERS: Emergency Provider Nurse Practitioner Family; PCP Internal Medicine Adolescent Medicine
DX: N92.1 Excessive and frequent menstruation with irregular cycle (principal); Z32.02 Encounter for pregnancy test, result negative
CPT/HCPCS: 81025; 84703; 99212; G0463

== ENCOUNTER 2022-03-24 14:33 | Emergency (ER) | payer MEDICAID, SELFPAY ==
[2022-03-24 15:05] VITALS: BP 104/68; PULSE 70; RESP 17; TEMP 36.8; O2SAT 100; BMI 35.4
--- NOTE | 2022-03-24 15:05 | HMH.EDUTC ---
[facility] Disposition Clinical Impression: Upper respiratory infection Qualifiers: URI type: unspecified viral URI Qualified Code(s): J06.9 - Acute upper respiratory infection, unspecified Disposition: Home, Self-Care Condition on Discharge: Good Instructions: DI for Viral Upper Respiratory Infection -- Adult Additional Instructions: Rest, fluids, take meds as prescribed. Follow up with Dr Garcia if not improving. COVID19 test results should be available later tonight. Prescriptions: Brompheniramine/Pseudoephed/Dm [Bromfed DM Cough Syrup 5mL] 5 ml PO Q4HP PRN 10 Days #180 ml PRN Reason: Cough Transmission Status: Pending to [id number] predniSONE [Prednisone 20mg Tab] 20 mg PO BID 5 Days #10 tab Transmission Status: Pending to [id number] Referrals: Ray Garcia MD [Primary Care Provider] - Time of Disposition: 15:16 Medical Decision Making - Kumar Inquiry Pt receiving controlled substance: No Vital Signs: 03/24/22 15:05 Temperature 98.3 F Temperature Source Oral Pulse Rate [Left Radial] 70 Respiratory Rate 17 Blood Pressure [Right Arm] 104/68 L Blood Pressure Mean [Right Arm] 80 02 Sat by Pulse Oximetry 100 - Lab Data Lab results reviewed: Yes: I reviewed the patient's lab results. Orders (Tests/Meds): ORDERS Category Date Time Status Covid-19 Nasal PCR ([facility]) Routine Lab 03/24/22 14:59 Ordered [facility] HPI - General Stated complaint: cough, h/a Time Seen by Provider: 03/24/22 15:05 - History of Present Illness Provider Complaint: Cough, headache, nasal congestion, sore throat X 5-6 days. Fever initially, now resolved. No vomiting or diarrhea. Onset (ago): day(s) (6) Location: head, chest Relieving factors: none Exacerbating factors: none Associated symptoms: cough, fever/chills, shortness of breath Treatments prior to arrival: none - Related Data Home Medications Medication Instructions Recorded Confirmed Omeprazole Magnesium [Prilosec Otc 20 mg PO DAILY 11/20/21 11/20/21 20mg Tab] Sertraline HCl [Zoloft 50mg tablet] 50 mg PO DAILY 11/20/21 11/20/21 Previous Rx's Medication Instructions Recorded methocarbamoL [Methocarbamol] 750 mg PO BID PRN #10 tab 11/20/21 methylPREDNISolone [Medrol 4mg 4 mg PO DIRECTED #21 tab 11/20/21 tab] Brompheniramine/Pseudoephed/Dm 5 ml PO Q4HP PRN 10 Days #180 ml 03/24/22 [Bromfed DM Cough Syrup 5mL] predniSONE [Prednisone 20mg 20 mg PO BID 5 Days #10 tab 03/24/22 Tab] Allergies Allergy/AdvReac Type Severity Reaction Status Date / Time No Known Allergies Allergy Verified 03/24/22 15:08 [facility] History - Hepatitis A Screen Attestation statement:: This patient has been screened for Hepatitis A risk factors. I have reviewed the patient's past medical history: Yes Medical History: Reports:: Anxiety, Depression Denies:: Cancer, Diabetes Mellitus Type 1, Diabetes Mellitus Type 2, Internal Pacemaker, MRSA, Seizures Other Medical History: Denies: Blood Transfusion Reaction Other Surgeries: Yes: Cholecystectomy, Other. No: Pacemaker Amputation: No Fractures: No Comment: wisdom teeth - Social History Smoking Status: Current every day smoker Tobacco Type: cigarettes # Packs/Day (cigarettes): 1 Alcohol Intake: never Alcohol Intake Frequency:: holidays/special occasions only Substance Use Type: denies use Occupational Status: other Housing: house Household Members: significant other - Psychiatric History Pschychiatric History:: Reports:: Anxiety, Depression Family Hx:: No significant family history ROS Obtained: Yes All systems reviewed & no additional complaints - Constitutional Constitutional: Reports body ache, Reports chills, Reports fatigue, Reports fever(s), Reports malaise - ENT Ears, Nose, Mouth, and Throat: Reports nasal congestion, Reports sore throat - Respiratory Respiratory: Reports cough Physical Exam - General General appearance: alert, in no apparent d
[2022-03-24 15:16] LABS: UTC Influenza A Antigen Negative (Negative); UTC Influenza B Antigen Negative (Negative)
[2022-03-24 15:21] VITALS: BP 104/68; PULSE 70; RESP 17; TEMP 36.8
== END 2022-03-24 15:22 | disposition home or self-care (01) ==
PROVIDERS: Emergency Provider Physician Assistant; PCP Internal Medicine Adolescent Medicine
DX: J06.9 Acute upper respiratory infection, unspecified (principal)
CPT/HCPCS: 87804; 99212; C9803; G0463; U0003; U0005

== ENCOUNTER 2022-05-08 11:38 | Emergency (ER) | payer MEDICAID, SELFPAY ==
[2022-05-08 11:40] VITALS: BP 139/72; PULSE 60; RESP 18; TEMP 36.8; O2SAT 99; BMI 33.4
--- NOTE | 2022-05-08 12:30 | HMH.EDUTC ---
[facility] [place] Clinical Impression: Otitis media Qualifiers: Otitis media type: unspecified Laterality: right Qualified Code(s): H66.91 - Otitis media, unspecified, right ear Disposition: Home, Self-Care Condition on Discharge: Good Instructions: Middle Ear Infection, Amoxicillin Additional Instructions: *Monitor Temp, Over the counter Motrin or Tylenol as directed/as needed Tylenol every 4 hours and Motrin every 6 hours (as long as your family doctor has told you that you can take it) for fever or pain. and straight to ER if unable to lower temp less than 101.0 after medication given *Warm salt water gargles may help to soothe the throat *Throat Lozenges *Warm fluids like tea with honey may help to soothe the throat *Sleep elevated *Humidifier/Vaporizer *Flonase 2 sprays in each nostril daily but be aware that it may take 2-3 days before you notice improvement Take medication as prescribed Follow up IMMEDIATELY for new or worsening symptoms or no Noticeable improvement over the next 48-72 hours. 911 for difficulty breathing or swallowing Prescriptions: Amoxicillin [Amoxicillin 875MG Tab] 875 mg PO Q12H #20 tab Transmission Status: Pending to [facility] Fluticasone Propionate [Flonase 50mcg nasal spray 16gm] 1 spr NS DAILY #1 each Transmission Status: [facility] predniSONE [Prednisone 20mg Tab] 20 mg PO BID #10 tab Transmission Status: Pending to [facility] Referrals: Ray Garcia MD [Primary Care Provider] - As needed Time of Disposition: 12:35 Medical Decision Making - Kumar Inquiry Pt receiving controlled substance: No Kumar was queried for this patient: No Vital Signs: 05/08/22 11:40 Temperature 98.3 F Temperature Source Oral Pulse Rate [Right Brachial] 60 Respiratory Rate 18 Blood Pressure [Right Arm] 139/72 Blood Pressure Mean [Right Arm] 94 Blood Pressure Source [Right Arm] Automatic Cuff Blood Pressure Position [Right Arm] Sitting 02 Sat by Pulse Oximetry 99 Oxygen Delivery Method Room Air Medical Decision Narrative: denies pregancy states that she is on her period right now [facility] [place]PI - General Stated complaint: Right ear pain dizzy light headed Time Seen by Provider: 05/08/22 11:55 Mode of Arrival: Ambulatory Source of Information: Patient Limitations: No Limitations Description of Symptoms (Recalled from Triage Doc. by RN): PATIENT C/O RIGHT EAR PAIN X 2 DAYS HEENT Symptoms (Recalled from RN notes): Yes Resp Symptoms (Recalled from RN notes): No Skin Symptoms (Recalled from RN notes): No MS Symptoms (Recalled from RN notes): No Functional Status (Recalled from RN notes): WNL - History of Present Illness Provider Complaint: Patient states that she has been having pain in her right ear for 2 days States that at times she feels a little dizzy when she moves too quickly States that ear feels full like it is full of fluid - Related Data Previous Rx's Medication Instructions Recorded Amoxicillin [Amoxicillin 875MG 875 mg PO Q12H #20 tab 05/08/22 Tab] Fluticasone Propionate [Flonase 1 spr NS DAILY #1 each 05/08/22 50mcg nasal spray 16gm] predniSONE [Prednisone 20mg 20 mg PO BID #10 tab 05/08/22 Tab] Allergies Allergy/AdvReac Type Severity Reaction Status Date / Time No Known Allergies Allergy Verified 03/24/22 15:08 - Worker's Comp Is this a Worker's Comp case?: No [facility] History - Hepatitis A Screen Attestation statement:: This patient has been screened for Hepatitis A risk factors. I have reviewed the patient's past medical history: Yes Medical History: Reports:: Anxiety, Depression Denies:: Cancer, Diabetes Mellitus Type 1, Diabetes Mellitus Type 2, Internal Pacemaker, MRSA, Seizures Other Medical History: Denies: Blood Transfusion Reaction Other Surgeries: Yes: Cholecystectomy, Other. No: Pacemaker Amputation: No Fractures: No Comment: wisdom teeth - Social History Smoking Status: C
[2022-05-08 12:39] VITALS: BP 139/72; PULSE 60; RESP 18; TEMP 36.8; O2SAT 99
== END 2022-05-08 12:44 | disposition home or self-care (01) ==
LOC: ER 11:43 → UTC 11:43
PROVIDERS: Emergency Provider Nurse Practitioner; PCP Internal Medicine Adolescent Medicine
DX: H66.91 Otitis media, unspecified, right ear (principal)
CPT/HCPCS: 99212; G0463

== ENCOUNTER 2022-05-21 12:26 | Emergency (ER) | payer MEDICAID, SELFPAY ==
[2022-05-21 12:40] VITALS: BP 131/86; PULSE 76; RESP 18; TEMP 37.1; O2SAT 99; BMI 35.5
--- NOTE | 2022-05-21 13:19 | HMH.EDUTC ---
[facility] [place] Disposition Clinical Impression: Strep throat Disposition: Home, Self-Care Condition on Discharge: Good Instructions: DI for Strep Throat, Strep Throat, Azithromycin Additional Instructions: *Monitor Temp, Over the counter Motrin or Tylenol as directed/as needed Tylenol every 4 hours and Motrin every 6 hours (as long as your family doctor has told you that you can take it) for fever or pain. and straight to ER if unable to lower temp less than 101.0 after medication given *Warm salt water gargles may help to soothe the throat *Throat Lozenges *Warm fluids like tea with honey may help to soothe the throat *Sleep elevated *Humidifier/Vaporizer If you did not take Penicillin shot or was unable to, start taking antibiotic immediately and make sure that you take it for the FULL length of time although you should start to feel better in 24-48 hours *change toothbrush and toothpaste 24-48 hours after starting to take antibiotics so you do not reinfect yourself Monitor Temp. Tylenol and/or Ibuprofen as needed. ER if fever is no less than 101 despite alternating Tylenol and Ibuprofen * Encourage fluids, water, Gatorade, powerade, pedialyte if /toddler/or child *Cold fluids, popsicles and ice cream may feel good on his throat Follow up IMMEDIATELY for new or worsening symptoms or no Noticeable improvement over the next 48-72 hours. 911 for difficulty breathing or swallowing Prescriptions: Azithromycin [Z-Margarito 250mg Tab*] 250 mg PO UD DOSE PK #6 tab Transmission Status: Pending to [facility] Referrals: Ray Garcia MD [Primary Care Provider] - As needed Time of Disposition: 13:34 Medical Decision Making - Kumar Inquiry Pt receiving controlled substance: No Kumar was queried for this patient: No Vital Signs: 05/21/22 12:40 Temperature 98.8 F Temperature Source Oral Pulse Rate [Right Brachial] 76 Respiratory Rate 18 Blood Pressure [Right Arm] 131/86 Blood Pressure Mean [Right Arm] 101 Blood Pressure Source [Right Arm] Automatic Cuff Blood Pressure Position [Right Arm] Sitting 02 Sat by Pulse Oximetry 99 Oxygen Delivery Method Room Air [facility] [place] HPI - General Stated complaint: neck pain Time Seen by Provider: 05/21/22 13:19 Mode of Arrival: Ambulatory Source of Information: Patient Limitations: No Limitations Description of Symptoms (Recalled from Triage Doc. by RN): PATIENT C/O RIGHT SIDED NECK X 3 DAYS HEENT Symptoms (Recalled from RN notes): No Resp Symptoms (Recalled from RN notes): No Skin Symptoms (Recalled from RN notes): No MS Symptoms (Recalled from RN notes): Yes Functional Status (Recalled from RN notes): WNL - History of Present Illness Provider Complaint: Patient states that she has been having pain in the right side of her neck and hurts when she swallows or talks States that she was seen and treated for ear infection a couple weeks ago but still having some pain in that ear on and off so today she came in to get checked - Related Data Previous Rx's Medication Instructions Recorded Amoxicillin [Amoxicillin 875MG 875 mg PO Q12H #20 tab 05/08/22 Tab] Fluticasone Propionate [Flonase 1 spr NS DAILY #1 each 05/08/22 50mcg nasal spray 16gm] predniSONE [Prednisone 20mg 20 mg PO BID #10 tab 05/08/22 Tab] Azithromycin [Z-Margarito 250mg Tab*] 250 mg PO UD DOSE PK #6 tab 05/21/22 Allergies Allergy/AdvReac Type Severity Reaction Status Date / Time No Known Allergies Allergy Verified 03/24/22 15:08 - Worker's Comp Is this a Worker's Comp case?: No [facility] History - Hepatitis A Screen Attestation statement:: This patient has been screened for Hepatitis A risk factors. I have reviewed the patient's past medical history: Yes Medical History: Reports:: Anxiety, Depression Denies:: Cancer, Diabetes Mellitus Type 1, Diabetes Mellitus Type 2, Internal Pacemaker, MRSA, Seizures Other Medical History: Denies: Blood Transfusion Reaction Other Surgeries: Yes: Cho
[2022-05-21 13:31] LABS: UTC Strep Screen (Rapid) Positive (Negative)
[2022-05-21 13:35] VITALS: BP 131/86; PULSE 76; RESP 18; TEMP 37.1; O2SAT 99
== END 2022-05-21 13:39 | disposition home or self-care (01) ==
PROVIDERS: Emergency Provider Nurse Practitioner; PCP Internal Medicine Adolescent Medicine
DX: J02.0 Streptococcal pharyngitis (principal); F17.210 Nicotine dependence, cigarettes, uncomplicated
CPT/HCPCS: 87880; 99212; G0463

== ENCOUNTER 2022-07-20 18:25 | Emergency (ER) | payer MEDICAID, SELFPAY ==
--- NOTE | 2022-07-20 18:39 | XR_ITS ---
PROCEDURE INFORMATION: Exam: XR Right Shoulder Exam date and time: 07/20/2022 6:37 PM Age: 37 years old Clinical indication: Pain; Shoulder; Right TECHNIQUE: Imaging protocol: Radiologic exam of the Right shoulder. Views: 2 or more views. COMPARISON: CT SOFT TISSUE NECK WO/W CON 02/24/2021 10:19 AM FINDINGS: Bones/joints: Normal. Soft tissues: Normal. IMPRESSION: No acute findings.
[2022-07-20 18:45] VITALS: BP 141/85; PULSE 71; RESP 18; TEMP 36.8; O2SAT 99; BMI 32.4
--- NOTE | 2022-07-20 18:55 | EXP.UTC ---
Discharge Plan Disposition Patient Disposition: Home, Self-Care Condition: Good Prescriptions Prescriptions: New methylprednisolone [Medrol (Margarito)] 4 mg tablets,dose pack See Rx Instructions .Route .COMPLEX 6 Days Qty: 21 0RF Rx Instructions: taper pack; No Action buspirone 10 mg tablet 10 mg PO BID cyanocobalamin (vitamin B-12) [Vitamin B-12] 1,000 mcg tablet 1,000 mcg PO DAILY 90 Days Qty: 90 0RF Loratadine-D 5-120 mg tablet extended release 12 hr 1 tab PO ONCE 90 Days Qty: 90 0RF methocarbamol 500 mg tablet 500 mg PO BID 90 Days Qty: 180 0RF sertraline 50 mg tablet 50 mg PO DAILY 90 Days Qty: 90 4RF omeprazole 40 mg capsule,delayed release(DR/EC) 40 mg PO DAILY Qty: 90 4RF fluticasone propionate 120 SPRAY bottle 1 spr NS DAILY Qty: 1 0RF Referrals Follow up/Referrals: Blayne Hernández MD [Primary Care Provider] - See instructions Activity Restrictions/Add. Instructions Additional Instructions/Restrictions: *Ibuprofen as directed on package with meal as needed for pain/inflammation *Remember you had a Toradol shot in the clinic today, which is similar to Motrin *Not additional anti-inflammatory like motrin, aleve, advil with the above amount of ibuprofen. You can still take Tylenol every 4 hours as needed if you need something else for pain *Ice 20 minutes every 2 hours for the first 48 hours after the initial injury followed by moist heat every 20 minutes 3-4 times a day to affected area *Muscle relaxer every 12 hours as needed for muscle spasms but remember, it WILL cause drowsiness You cannot take it and drive, operate machinery or care for small children. Over the counter Muscle rubs may help with pain and tightness *Keep this area active, no movement leads to more stiffness, However take it easy and avoid heavy lifting pushing or pulling *Follow up with you family doctor if no improvement for further treatment Clinical Impressions Clinical Impression: Muscle spasm Discharge ED Provider: Prabha Vergara [facility] HPI General Stated complaint: pain in R shoulder Mode of Arrival: Ambulatory Source of Information: Patient Limitations: No Limitations Time Seen by Provider: 07/20/22 18:55 Description of Symptoms (Recalled from Triage Doc. by RN): c/o rt shoulder pain x3 days HEENT Symptoms (Recalled from RN notes): No Resp Symptoms (Recalled from RN notes): No Skin Symptoms (Recalled from RN notes): No MS Symptoms (Recalled from RN notes): Yes (rt shoulder pain) Functional Status (Recalled from RN notes): n/a History of Present Illness Provider Complaint: Patient states that she has been having pain in her right shoulder area that feels tight and hurts when she turns her head or moves certain ways States that she doesnt recall doing anything to hurt it and denies known injury but tonight she was still having pain and spasms so she came in to get it Related Data Home Medications Medication Instructions Recorded Confirmed buspirone 10 mg tablet 10 mg PO BID 06/05/22 06/05/22 Previous Rx's Medication Instructions Recorded fluticasone propionate 50 1 spr intranasal DAILY #1 ea 05/08/22 mcg/actuation nasal spray,suspension cyanocobalamin (vitamin B-12) 1,000 mcg PO DAILY 90 days #90 tabs 06/05/22 1,000 mcg tablet (Vitamin B-12) loratadine 5 mg-pseudoephedrine ER 1 tab PO ONCE 90 days #90 tabs 06/05/22 120 mg tablet,extended release,12hr (Loratadine-D) methocarbamol 500 mg tablet 500 mg PO BID 90 days #180 tabs 06/05/22 omeprazole 40 mg capsule,delayed 40 mg PO DAILY #90 caps 06/05/22 release sertraline 50 mg tablet 50 mg PO DAILY 90 days #90 tabs 06/05/22 methylprednisolone 4 mg tablets in See Rx Instructions .Route 07/20/22 a dose pack (Medrol (Margarito)) .COMPLEX 6 days #21 tabs Allergies Allergy/AdvReac Type Severity Reaction Status Date / Time No Known Allergies Allergy Verified 06/05/22 13:42 Worker's Comp Is this a Worker's Comp case
[2022-07-20 19:59] VITALS: BP 141/85; PULSE 71; RESP 18; TEMP 36.8; O2SAT 99
== END 2022-07-20 20:00 | disposition home or self-care (01) ==
PROVIDERS: Emergency Provider Nurse Practitioner; PCP Family Medicine
DX: M25.511 Pain in right shoulder (principal); M62.838 Other muscle spasm; F17.210 Nicotine dependence, cigarettes, uncomplicated; Z79.52 Long term (current) use of systemic steroids; Z79.899 Other long term (current) drug therapy
CPT/HCPCS: 73030; 99213; G0463

== ENCOUNTER 2022-10-25 11:21 | Emergency (ER) | payer MEDICAID, SELFPAY ==
[2022-10-25 12:00] VITALS: BP 132/79; PULSE 79; RESP 19; TEMP 36.7; O2SAT 100; BMI 36.9
--- NOTE | 2022-10-25 12:05 | EXP.UTC ---
Discharge Plan Disposition Patient Disposition: Home, Self-Care Condition: Good Prescriptions Prescriptions: New ondansetron 4 mg Tablet,Disintegrating 4 mg PO Q8H PRN (Reason: Nausea) Qty: 20 0RF famotidine 20 mg tablet 20 mg PO BID 10 Days Qty: 20 0RF No Action methocarbamol 500 mg tablet 500 mg PO BID cyanocobalamin (vitamin B-12) [Vitamin B-12] 1,000 mcg tablet 1,000 mcg PO DAILY omeprazole 40 mg capsule,delayed release(DR/EC) 40 mg PO DAILY Loratadine-D 5-120 mg tablet extended release 12 hr 1 tab PO ONCE sertraline 50 mg tablet 50 mg PO DAILY Referrals Follow up/Referrals: Blayne Hernández MD [Primary Care Provider] - See instructions Activity Restrictions/Add. Instructions Additional Instructions/Restrictions: Drink plenty of fluids. Take tylenol for pain or fever. Take the medications as directed. Continue your omeprazole as you normally take it. Follow up with your regular doctor. GO TO THE ER FOR ANY WORSENING SYMPTOMS Clinical Impressions Clinical Impression: Gastritis, Post viral syndrome Instructions Patient Instructions: DI for Gastritis, DI for Viral Syndrome Discharge ED Provider: Horace Morrison [facility] [place] [place] HPI General Stated complaint: stomach cramps and back pain Time Seen by Provider: 10/25/22 12:05 History of Present Illness Provider Complaint: She states that about 5 days ago she had chills, body aches and sore throat. She went to the ER at [facility]. She states that her flu and strep swabs were negative. But, she was started on tamiflu due to her flu like symptoms. She states that after taking this for about 2 days she began having GI upset symptoms. So, she stopped the tamiflu. Since then her fever and body aches symptoms have resolved. But, her GI upset symptoms have continued. She states that yesterday she had some bright red blood in her stool. She states that this morning she did not see any blood in her stool. But, she came here to be checked out. Related Data Home Medications Medication Instructions Recorded Confirmed cyanocobalamin (vitamin B-12) 1,000 mcg PO DAILY suppliment 10/25/22 10/25/22 1,000 mcg tablet (Vitamin B-12) loratadine 5 mg-pseudoephedrine ER 1 tab PO ONCE allergies 10/25/22 10/25/22 120 mg tablet,extended release,12hr (Loratadine-D) methocarbamol 500 mg tablet 500 mg PO BID spasms 10/25/22 10/25/22 omeprazole 40 mg capsule,delayed 40 mg PO DAILY GERD 10/25/22 10/25/22 release sertraline 50 mg tablet 50 mg PO DAILY Anxiety 10/25/22 10/25/22 Previous Rx's Medication Instructions Recorded famotidine 20 mg tablet 20 mg PO BID 10 days #20 tabs 10/25/22 ondansetron 4 mg disintegrating 4 mg PO Q8H PRN Nausea #20 tabs 10/25/22 tablet Allergies Allergy/AdvReac Type Severity Reaction Status Date / Time No Known Allergies Allergy Verified 10/25/22 12:17 [facility] Disclaimer: The information contained in this section may have been updated after the patient was seen, as this information can be updated by other users. Medical History Thyroid nodule Surgical History History of cholecystectomy Family History Mother Hypertension Social History Smoking Status: Current every day smoker tobacco type: cigarettes packs per day: 1 second hand exposure: No alcohol intake: never substance use type: denies use current occupational status: unemployed Travel in the last 8 weeks: None household members: significant other housing: house current occupation: office current occupational exposures/hazards: No caffeine: Yes ROS Obtained: Yes All systems reviewed & no additional complaints except as documented Constitutional Constitutional: Denies
[2022-10-25 12:34] LABS: UTC Strep Screen (Rapid) Negative (Negative)
[2022-10-25 12:35] LABS: UTC Influenza A Antigen Negative (Negative); UTC Influenza B Antigen Negative (Negative)
[2022-10-25 13:15] VITALS: BP 132/79; PULSE 79; RESP 19; TEMP 36.7; O2SAT 100
== END 2022-10-25 13:15 | disposition home or self-care (01) ==
PROVIDERS: Emergency Provider Nurse Practitioner Family; PCP Family Medicine
DX: K29.70 Gastritis, unspecified, without bleeding (principal); G93.31 Postviral fatigue syndrome
CPT/HCPCS: 87804; 87880; 99212; 99213; G0463

== ENCOUNTER → 2023-06-03 10:36 | Outpatient (CLI) | payer MEDICAID, SELFPAY ==
[2023-06-03 11:30] LABS: Basophils # 0.1 K/mm3 (0-0.2); Basophils % 0.7 % (0.1-2.0); Eosinophils # 0.2 K/mm3 (0.0-0.4); Eosinophils % 2.2 % (0.1-12.0); Hematocrit 47.7 % (37.0-47.0); Hemoglobin 14.9 g/dL (12.2-16.2); Lymphocytes # 2.1 K/mm3 (0.7-4.5); Lymphocytes % 28.3 % (10-50); Mean Corpuscular HGB Conc 31.2 g/dL (31.8-35.4); Mean Corpuscular Hemoglobin 28.9 pg (27.0-31.2); Mean Corpuscular Volume 92.5 fl (81-99); Mean Platelet Volume 8.6 fl (7.4-10.4); Monocytes # 0.3 K/mm3 (0.1-1.0); Monocytes % 4.3 % (1.7-9.3); Neutrophils # 4.7 K/mm3 (1.8-7.8); Neutrophils % 64.5 % (37.0-80.0); Platelet Count 291 K/mm3 (142-424); Red Blood Count 5.16 M/mm3 (4.20-5.40); Red Cell Distribution Width 13.2 % (11.5-17.5); White Blood Count 7.2 K/mm3 (4.8-10.8)
[2023-06-03 11:47] LABS: Alanine Aminotransferase 25 U/L (12-78); Albumin Level 4.4 g/dl (3.5-5.0); Albumin/Globulin Ratio 1.5 (1.1-1.8); Alkaline Phosphatase 53 U/L (38-126); Anion Gap 13.5 mEq/L (5-15); Aspartate Amino Transferase 23 U/L (14-36); Bilirubin,Total 0.2 mg/dl (0.2-1.3); Blood Urea Nitrogen 13 mg/dl (7-17); Calcium 9.5 mg/dl (8.4-10.2); Carbon Dioxide 26 mmol/L (22.0-30.0); Chloride 103 mmol/L (98-107); Estimated Glomerular Filt Rate 114 ml/min (>60); GFR (African American) 138 ML/MIN (>60); Glucose 124 mg/dl (74-100); Potassium 4.5 mmoL/L (3.5-5.1); Sodium 138 mmol/L (136-145); Total Protein,Serum 7.4 g/dl (6.3-8.2)
[2023-06-03 12:03] LABS: HCG,Quantitative < 2 mIU/ml (0-5.42)
== END ==
PROVIDERS: PCP Family Medicine; Visit Provider Nurse Practitioner Obstetrics & Gynecology
DX: Z30.09 Encounter for other general counseling and advice on contraception
CPT/HCPCS: 36415; 80053; 84702; 85025

== ENCOUNTER 2023-06-10 06:01 | Day surgery (SDC) | payer MEDICAID, SELFPAY ==
[2023-06-06 13:47] VITALS: BMI 35.4
[2023-06-10] VITALS (11 sets, daily range): BP systolic 114–128; BP diastolic 68–81; PULSE 62–96; RESP 12–22; TEMP 36.2–43; O2SAT 95–100
--- NOTE | 2023-06-10 07:40 | P.PNANES_ITS ---
[facility] Disclaimer: The information contained in this section may have been updated after the patient was seen, as this information can be updated by other users. Medical History Palpitations Thyroid nodule Surgical History History of cholecystectomy Family History Mother Hypertension Social History (Updated 06/10/23 @ 06:16 by Mily Dunn RN) Smoking Status: Current every day smoker tobacco type: cigarettes packs per day: 1 pack-years: 10 second hand exposure: No alcohol intake: current substance use type: denies use current occupational status: unemployed Travel in the last 8 weeks: None household members: significant other housing: house lives independently: No education level: high school service: No [place] [facility]: No current occupation: office current occupational exposures/hazards: No caffeine: Yes special suraj needs: No agree to transfusion: No do you feel safe at home: Yes victim of physical abuse: No victim of emotional abuse: No victim of sexual abuse: No would you like helpful sources: No [facility] Anesthesia Checklist Patient Identification Patient Identification: Verbal (Name & ) Structural Data Admitted From: Home Planned Operative Procedure/s: bilat salpingectomy Consent for Planned Operative Procedure(s) Verified: Yes NPO Status Verified Time NPO: 00:00 Additional verifications Anesthesia Reactions: No Hx Blood Transfusions: No Blood Transfusion Reaction: No Airway Assessment Mallampati Score:: Class II C-Spine Mobility Assessed: Yes TMJ Mobility Assessed: Yes Dentition: Good Dentition Neurological Assessment Level of Consciousness: Awake, Alert and Appropriate Anesthesia Plan Anesthesia Risk discussed: Yes Anesthesia Plan: Verified ASA Class: II Anesthesia Type: General
--- NOTE | 2023-06-10 08:07 | P.PNANES_ITS ---
[facility] Anesthesia Record Part I Anesthesia Record I Intake, IV Amount: 800 Hydration: Adequate Estimated blood loss (mL): 10 Urine output (mL): 0 Blood Pressure: 120/74 SaO2: 96 Pulse Rate: 96 Airway Patency: Patent Respiratory Rate: 12 Temperature: 97.4 F Patient is:: Awake and Stable Stable to PACU at:: 08:10
--- NOTE | 2023-06-10 08:12 | EXP.OP.NOTE ---
Date of procedure: 06/11/23 Pre-op Diagnosis:: Desire for sterilization Post-op Diagnosis:: Desire for sterilization Procedure performed:: Laparoscopic bilateral salpingectomy Surgeon:: Moy Salazar MD [facility] OPERATOR:: Pedro Rivers Anesthesia: GETA Estimated blood loss (mL): 10 Clinical Note:: She is a 37-year-old lady who expressed desire for sterilization. The risks and benefits as well as the irreversibility of bilateral salpingectomy were discussed with patient prior to surgery. Operative findings:: She had an anteverted somewhat bulky uterus. The ovaries and tubes appeared normal. The upper abdomen appeared normal. The deep pelvis appeared normal. Operative note:: She was taken to the operating room where general anesthesia was found be adequate. She was prepped and draped in normal sterile fashion in the semilithotomy position. A weighted speculum was placed in the vagina and the anterior lip of the cervix was grasped with a tenaculum. I then inserted a Iona uterine manipulator into the cervical os. The balloon was then insufflated. I changed gloves and injected 10 cc of 0.5% ropivacaine around her umbilicus and made a small incision within the umbilicus. I inserted a Veress needle into the abdominal cavity. The peritoneal cavity was then insufflated with carbon dioxide gas to a pressure of 20 mmHg. I then inserted a 5 millimeter trocar under direct vision. I injected through and through the pubic hairline, made a small incision here and inserted an 8 mm trocar under direct vision. I identified the inferior epigastric artery on the left side, went lateral to these and injected through and through. I then placed a 5 mm trocar here under direct vision. The pelvis and upper abdomen were then inspected and the findings were as previously dictated. I grasped the right tube at the cornua and using harmonic scalpel on coagulation mode I cut through the tube. I then grasped the distal tube and using harmonic scalpel cut along the mesosalpinx. The tube was removed through 8 mm trocar site. This was similarly performed on the patient's left side. I then injected 30 cc of 0.5% ropivacaine into the pelvis. After assuring hemostasis the gas was let out of the abdomen and hemostasis was once again assured. The abdomen was then reinsufflated. The secondary trochars were removed under direct vision. The gas was let out her abdomen. The primary trocar was then removed. The 8 mm trocar site was closed deeply with 2-0 Vicryl suture followed by subcuticular 4-0 Monocryl suture. The 5 mm trocar sites were closed with subcuticular 4-0 Monocryl. Sterile dressings were applied. The patient tolerated the procedure well and was taken to the recovery room in excellent condition. All sponge instrument and needle counts were correct. The estimated blood loss was less than 10 cc. Condition: stable Disposition: PACU Specimens:: Bilateral fallopian tubes Complications:: None
--- NOTE | 2023-06-10 08:41 | SUR.PHASEII ---
per Dr. Salazar pt can continue all home medications.
--- NOTE | 2023-06-11 11:56 | P.PNANES_ITS ---
[facility] Anesthesia Record Part II Anesthesia Record Part II Discharge Time: 08:40 Destination: Surgical Day Care (OP Surgery) PACU nurse assessment reviewed?: Yes Patient Condition:: Good Anesthesia Complications:: None Swallowing reflex intact?: Yes Airway Patency: Patent Cyanosis?: No Blood Pressure: 123/70 SaO2: 98 Respiratory Rate: 22 Pulse Rate: 70 Temperature: 97.4 F Mental Status: Alert & Oriented Pain level:: 0 Nausea and/or vomitting:: None Intake, IV Amount: 0 Hydration: Adequate
[2023-06-11 11:57] VITALS: BP 123/70; PULSE 70; RESP 22; TEMP 36.3; O2SAT 98
== END 2023-06-10 09:15 | disposition home or self-care (01) ==
PROVIDERS: PCP Family Medicine; Visit Provider Nurse Practitioner Obstetrics & Gynecology
PROC: (CPT 58661; principal; 2023-06-10 07:30)
DX: Z30.2 Encounter for sterilization (principal); N85.4 Malposition of uterus; N83.8 Other noninflammatory disorders of ovary, fallopian tube and broad ligament
CPT/HCPCS: 58661; 96374; J2405; J2710

== ENCOUNTER → 2023-09-11 23:31 | Outpatient (CLI) | payer MEDICAID, SELFPAY ==
[2023-09-11 16:44] LABS: Basophils % 0.4 % (0.1-2.0); Eosinophils # 0.2 K/mm3 (0.0-0.4); Eosinophils % 2.1 % (0.1-12.0); Hematocrit 41.9 % (37.0-47.0); Hemoglobin 14.2 g/dL (12.2-16.2); Lymphocytes # 2.6 K/mm3 (0.7-4.5); Lymphocytes % 26.2 % (10-50); Mean Corpuscular HGB Conc 33.8 g/dL (31.8-35.4); Mean Corpuscular Hemoglobin 31.1 pg (27.0-31.2); Mean Platelet Volume 9.4 fl (7.4-10.4); Monocytes # 0.5 K/mm3 (0.1-1.0); Monocytes % 4.6 % (1.7-9.3); Neutrophils # 6.7 K/mm3 (1.8-7.8); Neutrophils % 66.7 % (37.0-80.0); Platelet Count 287 K/mm3 (142-424); Red Blood Count 4.55 M/mm3 (4.20-5.40); Red Cell Distribution Width 13.3 % (11.5-17.5)
[2023-09-11 17:16] LABS: Alanine Aminotransferase 22 U/L (12-78); Albumin Level 4.2 g/dl (3.5-5.0); Albumin/Globulin Ratio 1.6 (1.1-1.8); Alkaline Phosphatase 63 U/L (38-126); Anion Gap 9.9 mEq/L (5-15); Aspartate Amino Transferase 24 U/L (14-36); Bilirubin,Total 0.3 mg/dl (0.2-1.3); Blood Urea Nitrogen 8 mg/dl (7-17); Calcium 8.7 mg/dl (8.4-10.2); Carbon Dioxide 25 mmol/L (22.0-30.0); Chloride 104 mmol/L (98-107); Chol/HDL Ratio 6.7 (1-3.5); Cholesterol 228 mg/dl (140-200); Estimated Glomerular Filt Rate 113 ml/min (>60); GFR (African American) 137 ML/MIN (>60); Globulin 2.7 g/dL (1.3-3.2); Glucose 101 mg/dl (74-100); HDL Cholesterol 34 mg/dl (40-60); Potassium 3.9 mmoL/L (3.5-5.1); Sodium 135 mmol/L (136-145); Total Protein,Serum 6.9 g/dl (6.3-8.2); Triglycerides 230 mg/dl (30-150); VLDL Cholesterol 46 mg/dL (0-40)
[2023-09-11 17:27] LABS: Direct LDL Cholesterol 150.25 mg/dL (100-129)
[2023-09-11 17:49] LABS: Thyroid Stimulating Hormone 0.67 uIU/mL (0.465-4.68)
== END ==
PROVIDERS: PCP Family Medicine; Visit Provider Family Medicine
DX: Z00.00 Encounter for general adult medical examination without abnormal findings (principal); R51.9 Headache, unspecified; R53.83 Other fatigue
CPT/HCPCS: 80053; 80061; 84443; 85025

== ENCOUNTER 2024-09-14 11:05 | Emergency (ER) | payer MEDICAID, SELFPAY ==
[2024-09-14 11:45] VITALS: BP 121/76; PULSE 66; RESP 18; TEMP 36.8; O2SAT 100; BMI 36.6
--- NOTE | 2024-09-14 11:47 | ED_ITS ---
Discharge Plan Disposition Patient Disposition: Home, Self-Care Condition: Good Prescriptions Prescriptions: New amoxicillin 875 mg tablet 875 mg PO Q12H Qty: 20 0RF methylprednisolone 4 mg Tablets,Dose Pack 4 mg PO DIRECTED 6 Days Qty: 21 0RF Rx Instructions: Take 1 pack as directed for 6 days [id number]-[id number]-[id number] [Bromfed DM] 2-30-10 mg/5 mL Syrup 5 ml PO Q6H PRN (Reason: Cough) Qty: 240 0RF ciprofloxacin-dexamethasone 0.3-0.1 % Drops,Suspension 2 drp Ear-Right BID 7 Days Qty: 1 0RF No Action epinephrine 0.3 mg/0.3 mL auto-injector 0.3 ml IM ONCE PRN (Reason: anaphylaxis) fexofenadine [Jen Allergy] 180 mg tablet 180 mg PO DAILY Qty: 100 3RF Ozempic 0.25 mg or 0.5 mg (2 mg/3 mL) pen injector 0.25 mg SQ WEEKLY Qty: 3 3RF diclofenac potassium 50 mg tablet 50 mg PO TID PRN (Reason: headache) Qty: 60 0RF cyclobenzaprine 10 mg tablet 10 mg PO TID PRN (Reason: muscle relaxer) 30 Days Qty: 60 1RF omeprazole 40 mg capsule,delayed release(DR/EC) 40 mg PO DAILY 30 Days Qty: 30 2RF methocarbamol 500 mg tablet 500 mg PO BID 30 Days Qty: 60 0RF citalopram [Celexa] 10 mg tablet 30 mg PO DAILY 30 Days Qty: 90 2RF cyanocobalamin (vitamin B-12) 1,000 mcg tablet, sublingual 1,000 mcg sublingual DAILY Qty: 100 3RF Referrals Follow up/Referrals: Blayne Hernández MD [Primary Care Provider] - See instructions Activity Restrictions/Add. Instructions Additional Instructions/Restrictions: Drink plenty of fluids. Take tylenol or ibuprofen for pain or fever. Take the medications as directed. Use the ear drops as directed. Follow up with your regular doctor. Make sure you follow up within the next week to have your ear drum rechecked to make sure it is healing. GO TO THE ER FOR ANY WORSENING SYMPTOMS Clinical Impressions Clinical Impression: Acute otitis media with perforated tympanic membrane Instructions Patient Instructions: How to Instill Ear Drops, Middle Ear Infection, DI for Tympanic Membrane Perforation-Adult Print Language Print Language: Maori Discharge ED Provider: Horace Morrison [facility] General Stated complaint: Pain/discharge in R ear Time Seen by Provider: 09/14/24 11:47 History of Present Illness Provider Complaint: She states that for the past 3 days she has had worsening right ear pain and sinus congestion. Last night she started having blood tinged drainage from that ear. Related Data Home Medications ?Medication ?Instructions ?Recorded ?Confirmed epinephrine 0.3 mg/0.3 mL 0.3 ml IM ONCE PRN anaphylaxis 03/12/23 05/13/24 injection, auto-injector Previous Rx's ?Medication ?Instructions ?Recorded diclofenac potassium 50 mg tablet 50 mg PO TID PRN headache #60 tabs 11/13/23 fexofenadine 180 mg tablet 180 mg PO DAILY #100 tabs 02/04/24 (Jen Allergy) semaglutide 0.25 mg or 0.5 mg (2 0.25 mg (0.368 mL) SQ WEEKLY #3 mL 02/04/24 mg/3 mL) subcutaneous pen injector (Ozempic) cyclobenzaprine 10 mg tablet 10 mg PO TID PRN muscle relaxer 30 04/27/24 days #60 tabs omeprazole 40 mg capsule,delayed 40 mg PO DAILY GERD 30 days #30 07/02/24 release caps methocarbamol 500 mg tablet 500 mg PO BID muscle relaxant 30 07/15/24 days #60 tabs citalopram 10 mg tablet (Celexa) 30 mg (3 x 10 mg) PO DAILY 30 days 09/07/24 #90 tabs cyanocobalamin (vitamin B-12) 1,000 mcg sublingual DAILY #100 09/07/24 1,000 mcg sublingual tablet tabs amoxicillin 875 mg tablet 875 mg PO Q12H #20 tabs 09/14/24 pspwykrinldpybo-cdecwvzzednfjua-UP 5 ml PO Q6H PRN Cough #240 mL 09/14/24 2 mg-30 mg-10 mg/5 mL oral syrup (Bromfed DM) ciprofloxacin 0.3 %-dexamethasone 2 drp Ear-Right BID 7 days #1 ea 09/14/24 0.1 % ear drops,suspension methylprednisolone 4 mg tablets in 4 mg PO DIRECTED 6 days #21 tabs 09/14/24 a dose pack Allergies Allergy/AdvReac Type Severity Reaction Status Date / Time No Known Allergies Allergy Verified 05/13/24 13:09 [facility] Disclaimer: The information contained in this section may have been updated after the patient was seen, as this information can be updated by other users. Medical History Palpitations Thyroid nodule Surgical History Hx of bilateral salpingectomy History of cholecystectomy Family History Mother Hypertension Social History Smoking Status: Current every day smoker tobacco type: cigarettes packs per day: 1 second hand exposure: No alcohol intake: current alcohol intake frequency: holidays/special occasions only substance use type: denies use current occupational status: unemployed household members: significant other housing: house lives independently: No education level: high school service: No long term: No current occupation: office current occupational exposures/hazards: No caffeine: Yes special suraj needs: No agree to transfusion: No do you feel safe at home: Yes victim of physical abuse: No victim of emotional abuse: No victim of sexual abuse: No would you like helpful sources: No ROS Obtained: Yes All systems reviewed & no additional complaints except as documented Constitutional Constitutional: Denies chills, Reports fever(s) and Reports poor appetite Eyes Eyes: Denies eye discharge ENT Ears, Nose, Mouth, and Throat: Denies ear discharge, Reports otalgia, Denies hearing loss, Denies sinus pain and Reports sore throat Cardiovascular Cardiovascular: Denies chest pain and Denies dyspnea Respiratory Respiratory: Denies chest congestion, Reports cough and Denies dyspnea Gastrointestinal Gastrointestingal: Denies abdominal pain, diarrhea, nausea or vomiting Musculoskeletal Musculoskeletal: Denies arthralgias Integumentary/Breasts Skin/Breast: Denies rash Physical Exam General General appearance: alert and in no apparent distress Head Head exam: atraumatic, normocephalic and normal inspection Eye Eye exam: Present normal appearance; Absent PERRL or EOMI ENT ENT exam: Present mucous membranes moist and normal external ear exam Expanded ENT Exam TM/Canal exam: Bilateral TM: erythema, bulging and effusion Nose exam: Absent sinus tenderness Nasal speculum exam: Bilateral: normal Mouth exam: Present normal external inspection and other; Absent drooling Teeth exam: Present normal inspection Throat exam: Present tonsillar erythema and tonsillomegaly Neck Neck exam: Present normal inspection, full ROM and trachea midline; Absent tenderness, meningismus or lymphadenopathy Chest Chest inspection: Present normal inspection and symmetric chest wall rise; Absent tenderness Respiratory Respiratory exam: Present normal lung sounds bilaterally; Absent respiratory distress, wheezes or stridor Cardiovascular Cardiovascular exam: Present regular rate, normal rhythm and normal heart sounds; Absent tachycardia or irregular rhythm Abdominal Exam Abdominal exam: Present soft and normal bowel sounds; Absent distention, tenderness, guarding, rebound or rigidity Extremities Exam Extremities exam: Present normal inspection and normal capillary refill; Absent tenderness, joint swelling or calf tenderness Back Exam Back exam: Present normal inspection and full ROM; Absent tenderness, CVA tenderness (R) or CVA tenderness (L) Neurological Exam Neurological exam: Present alert, oriented X3, CN II-XII intact, normal gait and reflexes normal; Absent motor sensory deficit Psychiatric Psychiatric exam: Present normal affect and normal mood Skin Skin exam: Present warm, dry, intact and normal color Lymphatic Lymphatic Findings: no adenopathy Medical Decision Making Medical Records Medical records reviewed: No I reviewed the patient's medical records. Screening: Per USPSTF and CDC recommendations, given the prevalence of disease in our region, it is our hospital?s policy to screen for HIV and viral Hepatitis for all patients aged 18 and over and those with ongoing risk factors. Kumar Inquiry Pt receiving controlled substance: No Lab Data Lab results reviewed: Yes I reviewed the patient's lab results.
[2024-09-14 12:24] VITALS: BP 121/76; PULSE 66; RESP 18; TEMP 36.8; O2SAT 100
== END 2024-09-14 12:26 | disposition home or self-care (01) ==
PROVIDERS: Emergency Provider Nurse Practitioner Family; PCP Family Medicine
DX: H66.011 Acute suppurative otitis media with spontaneous rupture of ear drum, right ear (principal); H92.01 Otalgia, right ear; H92.11 Otorrhea, right ear; R09.81 Nasal congestion; R63.8 Other symptoms and signs concerning food and fluid intake; R05.9 Cough, unspecified
CPT/HCPCS: 99212; G0381

== ENCOUNTER 2024-09-23 11:35 | Emergency (ER) | payer MEDICAID, SELFPAY ==
[2024-09-23 12:25] VITALS: BP 116/67; PULSE 60; RESP 18; TEMP 36.6; O2SAT 99; BMI 35.4
--- NOTE | 2024-09-23 12:41 | ED_ITS ---
Discharge Plan Disposition Patient Disposition: Home, Self-Care Condition: Good Prescriptions Prescriptions: No Action fexofenadine [Jen Allergy] 180 mg tablet 180 mg PO DAILY Qty: 100 3RF ciprofloxacin-dexamethasone 0.3-0.1 % drops,suspension 4 drp Ear-Right Q12H sumatriptan succinate [Imitrex] 50 mg tablet 50 mg PO Q2H MDD 100mg PRN (Reason: headache) Qty: 20 2RF Rx Instructions: take at onset of headache aura; max daily dose 100mg citalopram [Celexa] 10 mg tablet 30 mg PO DAILY 30 Days Qty: 90 2RF cyanocobalamin (vitamin B-12) 1,000 mcg tablet, sublingual 1,000 mcg sublingual DAILY Qty: 100 3RF omeprazole 40 mg capsule,delayed release(DR/EC) 40 mg PO DAILY 30 Days Qty: 30 2RF Referrals Follow up/Referrals: Blayne Hernández MD [Primary Care Provider] - See instructions Activity Restrictions/Add. Instructions Additional Instructions/Restrictions: Go home and rest. It would be best if you rested tomorrow too. Resume your regular migraine medications as prescribed by your primary care physician. Follow up with your regular doctor. GO TO THE ER FOR ANY WORSENING SYMPTOMS OR CONCERN, ESPECIALLY BOWEL OR BLADDER ISSUES, SADDLE AREA NUMBNESS, FEVER, ETC Clinical Impressions Clinical Impression: Migraine Stand Alone Forms Stand Alone Forms: Work/School Release Instructions Patient Instructions: Migraine -- Adult, DI for Migraine, Promethazine, Ketorolac Injection, Dexamethasone Injection Print Language Print Language: Hungarian Discharge ED Provider: Horace Morrison [facility] General Stated complaint: migraine Mode of Arrival: Ambulatory Source of Information: Patient Limitations: No Limitations Time Seen by Provider: 09/23/24 12:41 Description of Symptoms (Recalled from Triage Doc. by RN): PATIENT C/O HEADACHE SINCE YESTERDAY HEENT Symptoms (Recalled from RN notes): Yes Resp Symptoms (Recalled from RN notes): No Skin Symptoms (Recalled from RN notes): No MS Symptoms (Recalled from RN notes): No Functional Status (Recalled from RN notes): WNL Related Data Home Medications ?Medication ?Instructions ?Recorded ?Confirmed ciprofloxacin 0.3 %-dexamethasone 4 drp Ear-Right Q12H 09/24/24 09/24/24 0.1 % ear drops,suspension Previous Rx's ?Medication ?Instructions ?Recorded fexofenadine 180 mg tablet 180 mg PO DAILY #100 tabs 02/04/24 (Jen Allergy) citalopram 10 mg tablet (Celexa) 30 mg (3 x 10 mg) PO DAILY 30 days 09/07/24 #90 tabs cyanocobalamin (vitamin B-12) 1,000 mcg sublingual DAILY #100 09/07/24 1,000 mcg sublingual tablet tabs omeprazole 40 mg capsule,delayed 40 mg PO DAILY GERD 30 days #30 09/21/24 release caps sumatriptan succinate 50 mg tablet 50 mg PO Q2H PRN headache #20 tabs 09/24/24 (Imitrex) Allergies Allergy/AdvReac Type Severity Reaction Status Date / Time No Known Allergies Allergy Verified 09/24/24 14:04 Worker's Comp Is this a Worker's Comp case?: No [facility] Disclaimer: The information contained in this section may have been updated after the patient was seen, as this information can be updated by other users. Medical History Ocular histoplasmosis Palpitations Thyroid nodule Surgical History Hx of bilateral salpingectomy History of cholecystectomy Family History Mother Hypertension Social History Smoking Status: Current every day smoker tobacco type: cigarettes packs per day: 1 second hand exposure: No alcohol intake: current alcohol intake frequency: holidays/special occasions only substance use type: denies use current occupational status: unemployed Travel in the last 8 weeks: None household members: significant other housing: house lives independently: No education level: high school service: No assisted: No current occupation: office current occupational exposures/hazards: No caffeine: Yes special suraj needs: No agree to transfusion: No do you feel safe at home: Yes victim of physical abuse: No victim of emotional abuse: No victim of sexual abuse: No would you like helpful sources: No ROS Obtained: Yes All systems reviewed & no additional complaints except as documented Constitutional Constitutional: Denies chills, Denies fever(s) and Reports headache(s) Eyes Eyes: Denies eye discharge ENT Ears, Nose, Mouth, and Throat: Denies dizziness, Denies otalgia, Reports headache(s) and Denies sore throat Cardiovascular Cardiovascular: Denies chest pain Respiratory Respiratory: Denies shortness of breath, Denies chest congestion, Denies cough, Denies stridor and Denies wheezing Gastrointestinal Gastrointestingal: Denies nausea or vomiting Musculoskeletal Musculoskeletal: Reports system reviewed and no additional complaints, except as documented and Denies arthralgias Integumentary/Breasts Skin/Breast: Denies rash Neurologic Neurologic: Reports as per HPI, Denies dizziness, Reports headache(s) and Denies paresthesias Allergic/Immunologic Allergic/Immunologic: Denies wheezing Physical Exam General General appearance: alert and in no apparent distress Head Head exam: atraumatic, normocephalic and normal inspection Eye Eye exam: Present normal appearance, PERRL and EOMI ENT ENT exam: Present normal exam, normal oropharynx, mucous membranes moist, TM's normal bilaterally and normal external ear exam Neck Neck exam: Present normal inspection, full ROM and trachea midline; Absent meningismus or lymphadenopathy Chest Chest inspection: Present normal inspection and symmetric chest wall rise; Absent tenderness Respiratory Respiratory exam: Present normal lung sounds bilaterally; Absent respiratory distress Cardiovascular Cardiovascular exam: Present regular rate and normal rhythm; Absent JVD Abdominal Exam Abdominal exam: Present soft and normal bowel sounds; Absent distention, tenderness or guarding Extremities Exam Extremities exam: Present normal inspection, full ROM and normal capillary refill; Absent calf tenderness Back Exam Back exam: Present normal inspection; Absent tenderness Neurological Exam Neurological exam: Present alert, oriented X3, CN II-XII intact, normal gait and reflexes normal; Absent motor sensory deficit Expanded Neurological Exam Patient oriented to: Present person, place and time Speech: Present fluid speech Cranial nerves: Normal: EOM function (II, III, IV, ), facial sensation (V), facial palsy (VII), gag reflex (IX), spinal accessory function (XI) and tongue deviation (XII) Cerebellar function: normal gait Motor strength - LUE: 5/5 Motor strength - RUE: 5/5 Motor strength - LLE: 5/5 Motor strength - RLE: 5/5 Upper motor neuron exam: Normal: antonia neglect, Babinski sign and sensory extinction Sensory exam upper extremity: Normal: light touch and 2 point discrimination Sensory exam lower extremity: Normal: light touch and 2 point discrimination DTR: 2+: biceps (L), biceps (R), patellar (L), patellar (R), Achilles tendon (L) and Achilles tendon (R) Psychiatric Psychiatric exam: Present normal affect and normal mood Skin Skin exam: Present warm, dry, intact and normal color Lymphatic Lymphatic Findings: no adenopathy Medical Decision Making Medical Records Medical records reviewed: No I reviewed the patient's medical records. Screening: Per USPSTF and CDC recommendations, given the prevalence of disease in our region, it is our hospital?s policy to screen for HIV and viral Hepatitis for all patients aged 18 and over and those with ongoing risk factors. Kumar Inquiry Pt receiving controlled substance: No Vital Signs: 09/23/24 12:25 Temperature 97.9 F Temperature Source Oral Pulse Rate [Left Brachial] 60 Respiratory Rate 18 Blood Pressure [Left Arm] 116/67 Blood Pressure Mean [Left Arm] 83 Blood Pressure Source [Left Arm] Automatic Cuff Blood Pressure Position [Left Arm] Sitting 02 Sat by Pulse Oximetry 99 Oxygen Delivery Method Room Air
[2024-09-23] MEDS: DEXAMETHASONE 4MG/ML 1ML VIAL 8 MG IM (13:22)
[2024-09-23] MEDS: PROMETHAZINE HCL 25MG/ML 1ML VIAL 25 MG IM (13:22)
[2024-09-23] MEDS: KETOROLAC 60MG/2ML VIAL 60 MG IM (13:22)
[2024-09-23 13:46] VITALS: BP 116/67; PULSE 60; RESP 18; TEMP 36.6; O2SAT 99
== END 2024-09-23 13:49 | disposition home or self-care (01) ==
PROVIDERS: Emergency Provider Nurse Practitioner Family; PCP Family Medicine
DX: G43.909 Migraine, unspecified, not intractable, without status migrainosus (principal)
CPT/HCPCS: 96372; 99212; G0381; J1100; J1885; J2550

== ENCOUNTER 2025-03-25 21:53 | Emergency (ER) | payer MEDICAID, SELFPAY ==
[2025-03-25 22:08] VITALS: BP 132/82; PULSE 98; RESP 18; TEMP 36.7; O2SAT 98; BMI 35.4
--- OUTSIDE RECORDS SUMMARY | 2025-03-25 22:19 | XMS_ITS | Data Portability ---
Author Organization LOREN Busby LPNT [facility] & BRIAN Farfan ADMIN Address [address] [place] [id number] Care Team Providers Care Student Driving Instructor Name Role Phone VALERY NEWMAN Primary Care Provider Assessment No assessment recorded. Plan of Treatment Reminders Order Date Submit Date Provider Last Modified By Organization Details Last Modified Time Details Appointments None record ed. Lab None record ed. Referral None record ed. Procedures None record ed. Surgeries None record ed. Imaging None record ed. Medication Orders None record ed. Patient TargetsNo targets recorded. Patient Instructions Encounter Date Encounter Id Patient Instructions Last Modified By Organization Details Last Modified Time 07/10/2023 [id number] made allergy serum RAST_1 start over needs vial challenge [email or web address] Not available 07/10/2023 11:02:02 Reason for Referral None Reported. Problems Name Problem SNOMED Code Status Onset Date Resolution Date Notes Provider Name and Address Organization Details Recorded Time Allergic rhinitis [id number] Active 022 LOREN Kong - LPNT [facility] & Naheed 11:08:59 Problem Notes None recorded. Procedures Surgical History Date Name Laterality Status Provider Name and Address Organization Details Recorded Time 11/07/19 23 Allergy Injection (Single) completed Vickie PIMENTEL - LPNT - [place] & [place] 11/07/2022 09:36:24 10/30/19 23 Allergy Injection (Single) completed Vickie PIMENTEL - LPNT - [place] & [place] 10/30/2022 10:56:05 10/24/19 23 Allergy Injection (Single) completed Vickie PIMENTEL - LPNT - [place] & [place] 10/24/2022 10:27:55 10/10/20 22 Allergy Injection (Single) completed Vickie Valerio [place] - [facility]NT [facility] & [place] 10/10/2022 11:08:54 cholecystectomy completed Jacinto Zhang [place] - [facility]NT [facility] & [place] 08/28/2022 14:51:03 Imaging Results None recorded. Procedure Notes None recorded. Medical Equipment None Reported. Allergies No known drug allergies Medications Name Sig Start Date Stop Date Status Note LastModified by Organization Details LastModified Time methocarb grace 500 mg tablet active Not Available Not Available No t Available metformin 500 mg tablet TAKE 1 TABLET BY MOUTH TWICE DAILY 08/28 completed Not Available Not Available Not Available oxcarbaze pine 150 mg tablet active Not Available Not Available No t Available azithromy magui 250 mg tablet 08/28 completed Not Available Not Available Not Available ibuprofen 800 mg tablet TAKE 1 TABLET BY MOUTH EVERY 8 HOURS NEEDED WITH FOOD active Not Available Not Available No t Available prednison e 20 mg tablet TAKE 1 TABLET BY MOUTH TWICE DAILY FOR 5 DAYS 08/28 completed Not Available Not Available Not Available omeprazol e 40 mg capsule,d elayed release TAKE 1 CAPSULE BY MOUTH ONCE DAILY active Not Available Not Available No t Available amoxicill in 875 mg tablet 08/28 completed Not Available Not Available Not Available famotidin e 20 mg tablet TAKE 1 TABLET BY MOUTH TWICE DAILY FOR 10 DAYS active Not Available Not Available No t Available methocarb grace 750 mg tablet TAKE 1 TABLET BY MOUTH TWICE DAILY NEEDED FOR MUSCLE SPASM 08/28 completed Not Available Not Available Not Available oseltamiv ir 75 mg capsule TAKE 1 CAPSULE BY MOUTH EVERY 12 HOURS FOR 5 DAYS active Not Available Not Available No t Available buspirone 10 mg tablet active doesn't take everyday Not Available Not Available Not Available epinephri ne 0.3 mg/0.3 mL injection , auto-inje ctor Take 1 auto by injectio n route as directed for 1 day. active Not Available Not Available No t Available prednison e 5 mg tablets in a dose pack TAKE BY MOUTH DIRECTED ON INSIDE OF PACKAGE 08/28 completed Not Available Not Available Not Available methylpre dnisolone 4 mg tablets in a dose pack TAKE BY MOUTH DIRECTED ON INSIDE OF PACKAGE FOR 6 DAYS 08/28 completed Not Available Not Available Not Available brompheni ramine-ps eudoephed rine-DM 2 mg-30 mg-10 mg/5 mL oral syrup TAKE 5 ML BY MOUTH EVERY 4 HOURS FOR 10 DAYS NEEDED FOR COUGH 08/28 completed Not Available Not Available Not Available ondansetr on 4 mg disintegr ating tablet DISSOLVE 1 TABLET IN MOUTH EVERY 8 HOURS NEEDED FOR NAUSEA active Not Available Not Available No t Available fluticaso ne propionat e 50 mcg/actua tion nasal spray,milo pension active Not Available Not Available Not Available sertralin e 50 mg tablet TAKE 1 TABLET BY MOUTH ONCE DAILY active Not Available Not Available No t Available loratadin e 10 mg tablet Take 1 tablet every day by oral route for 30 days. active Not Available Not Available No t Available naproxen 500 mg tablet TAKE 1 TABLET BY MOUTH TWICE A DAY NEEDED FOR RIB PAIN. TAKE WITH FOOD active Not Available Not Available No t Available amoxicill in 875 mg-potass ium clavulana te 125 mg tablet TAKE 1 TABLET BY MOUTH EVERY 12 HOURS FOR 10 DAYS 08/28 completed Not Available Not Available Not Available Vitamin B-12 1,000 mcg tablet TAKE 1 TABLET BY MOUTH ONCE DAILY active Not Available Not Available No t Available hydroxyzi ne pamoate 25 mg capsule 08/28 completed Not Available Not Available Not Available Loratadin e-D 5 mg-120 mg tablet,ex tended release 12 hr active Not Available Not Available Not Available Flowflex COVID-19 Antigen Home Test kit DIRECTED active Not Available Not Available No t Available Vitals Date Recorded Body height Provider Name an d Address Organization Details Last Updated DateTime 10/24/2022 160.02 cm Vickie PIMENTEL - [facility]NT - [facility] & [place] 10/24/2022 10:27:33 Date Recorded Body height Provider Name an d Address Organization Details Last Updated DateTime 10/30/2022 160.02 cm Vickie PIMENTEL - [facility]NT - [facility] & [place] 10/30/2022 10:55:34 Date Recorded Body height Provider Name an d Address Organization Details Last Updated DateTime 11/07/2022 160.02 cm Vickie PIMENTEL - LPNT - [facility] & [place] 11/07/2022 09:36:07 Date Recorded Body height Provider Name an d Address Organization Details Last Updated DateTime 10/10/2022 160.02 cm Vickie Valerio [place] - LPNT - [facility] & Naheed 10/10/2022 11:07:17 Social History Question Answer Notes LastModified by Organizat ion Details LastModified Time Tobacco Smoking Status Current Every Day Smoker Jacinto alanis, LOREN Busby [facility]NT - [place] & [place] 08/28/2022 14:50:26 At What Age Did You Start Smoking Tobacco? 18 [email or web address] Information not available 08/28/2022 How Much Tobacco Do You Smoke? 0.5 PPD [email or web address] Information not available 08/28/2022 Sex: Unknown Functional Status None recorded. Mental Status None recorded. Family History Relationship Description Onset Age of this Age Resolved Age Notes LastModified by Organization Details LastModified Time Father No current problems or disability [email or web address] Not available 08/28 14:48:31 Mother No current problems or disability [email or web address] Not available 08/28 14:48:31 Medical History Condition Response Allergies/Hayfever Y Heart Problems N None N Heart Conditions N Emphysema N Migraines N Thyroid Problems N Glaucoma N Developmental Delay N Depression N Anemia N Immune System Disorder N Anesthesia Complications N Heart Attack (NC) N Diabetes N Anxiety Disorder N Bleeding Disorder N Hearing Loss N Arthritis N Tuberculosis N Hyperlipidemia N Acid Reflux (GERD) N Cancer N Stroke N Asthma N Sleep Disorder N GERD/Reflux N Heart Disease N Headaches N Fibromyalgia N Hypertension N Speech Delay N Kidney Disease N Gynecological HistoryNo gynecological history recorded. Obstetrics History GPAL:G 0 P 0 0 0 0 Past Encounters Encounter ID Performer Location Encounter Start Date Encounter Closed Date Diagnosis/Indication Diagnosis SNOMED-CT Code Diagnosis ICD10 Code Diagnosis Note [id number] Flores Wallace MD [facility] [facility] [place] [address] 08/28/2022 14:37:22 08/28/2022 15:11:47 Allergic rhinitis 66012049 J30.9 Sneezing 79116820 R06.7 Headache 25529659 R51.9 [id number] Flores Wallace MD [facility] [facility] [place] [address] 10/02/2022 09:40:27 10/02/2022 11:05:57 Allergic rhinitis 64255471 J30.9 Patient here for allergy skin testing. Please see scanned in document for results. [id number] Flores Wallace MD [facility] [address] [place] [address] 10/02/2022 13:44:49 10/02/2022 13:54:00 Allergic rhinitis 31087467 J30.9 Patient here for allergy skin testing. Please see scanned in document for results. [id number] Flores Wallace MD [facility] [place] [id number] [address] [facility] [place] [address] 10/10/2022 10:45:59 10/10/2022 11:00:37 Allergic rhinitis 81461374 J30.9 Patient here for allergy skin testing. Please see scanned in document for results. [id number] Flores Wallace MD [facility] [place] [address] [address] [facility] [place] [address] 10/24/2022 10:24:40 10/24/2022 10:26:45 Allergic rhinitis 35879341 J30.9 Patient here for allergy skin testing. Please see scanned in document for results. [id number] Flores Wallace MD [facility] [place] [address] [place] [address] 10/30/2022 10:51:35 10/30/2022 10:57:41 Allergic rhinitis 87947131 J30.9 Patient here for allergy skin testing. Please see scanned in document for results. [id number] Flores Wallace MD [facility] [place] [address] [address] [facility] [place] [address] 11/07/2022 09:35:30 11/07/2022 09:58:57 Allergic rhinitis 54710478 J30.9 Patient here for allergy skin testing. Please see scanned in document for results. [id number] Flores Wallace MD [facility] [address] 07/10/2023 11:00:08 07/10/2023 11:03:39 Allergic rhinitis 26685044 J30.9 Patient here for allergy skin testing. Please see scanned in document for results. Health Concerns Section Related Observation LastModified by Organization Detai ls LastModified Time None Recorded Concern Status LastModified by Organization Details LastModified Time None Recorded Advance Directives Directive None Recorded Payers Insurance Date Sequence Insurance Name Policy Number Policy Becerra Covered Member ID Becerra Member ID Guarantor Name 05/09/2024 1 [employer] [place] (MEDICAID HMO) Katiana Miles [id number] Katiana Miles OBGyn Episode No OBEpisode recorded.
--- NOTE | 2025-03-25 22:53 | XR_ITS ---
PROCEDURE INFORMATION: Exam: XR Left Knee Exam date and time: 03/25/2025 10:55 PM Age: 39 years old Clinical indication: Pain; Knee; Left; Additional info: Fall TECHNIQUE: Imaging protocol: Radiologic exam of the left knee. Views: 3 views. COMPARISON: CR XR FOOT LT MIN 3V 12/23/2019 4:39 PM FINDINGS: Bones/joints: No acute fracture or malalignment. No joint effusion. Soft tissues: Unremarkable. IMPRESSION: No acute osseous findings.
--- NOTE | 2025-03-25 22:53 | XR_ITS ---
PROCEDURE INFORMATION: Exam: XR Right Ankle Exam date and time: 03/25/2025 10:52 PM Age: 39 years old Clinical indication: Pain; Ankle; Right; Additional info: Fall TECHNIQUE: Imaging protocol: Radiologic exam of the right ankle. Views: 3 or more views. COMPARISON: No relevant prior studies available. FINDINGS: Bones/joints: Thin linear density laterally adjacent to the distal calcaneus. Soft tissues: Lateral ankle soft tissue swelling. IMPRESSION: Thin linear density laterally adjacent to the distal calcaneus, possibly representing an avulsion fracture.
[2025-03-25 22:59] VITALS: PULSE 82; RESP 20; O2SAT 99
--- NOTE | 2025-03-25 23:38 | HMH.EDGENADL ---
Discharge Plan Disposition Patient Disposition: Home, Self-Care Condition: Good Prescriptions Prescriptions: No Action fluconazole 150 mg tablet 150 mg PO Q3D 0 Days Qty: 2 0RF Rx Instructions: may repeat second dose 72 hrs after first dose if symptoms persist [id number]-gvrlrexgj-FO 3.5-10,000-1 mg/mL-unit/mL-% drops,suspension 4 drp otic (ear) Q8H 10 Days Qty: 10 0RF prednisone 20 mg tablet 20 mg PO BID Qty: 10 0RF Rx Instructions: administer with food or milk cyanocobalamin (vitamin B-12) 1,000 mcg tablet, sublingual 1,000 mcg sublingual DAILY Qty: 100 3RF methocarbamol 500 mg tablet 500 mg PO BID 30 Days Qty: 60 2RF omeprazole 40 mg capsule,delayed release(DR/EC) See Rx Instructions .ROUTE .COMPLEX Qty: 30 3RF Dose Instruction: TAKE 1 CAPSULE ORALLY DAILY FOR GERD FOR 30 DAYS Rx Instructions: TAKE 1 CAPSULE ORALLY DAILY FOR GERD FOR 30 DAYS fexofenadine [Allergy Relief (fexofenadine)] 180 mg tablet See Rx Instructions .ROUTE .COMPLEX Qty: 100 2RF Dose Instruction: TAKE 1 TABLET BY MOUTH DAILY Rx Instructions: TAKE 1 TABLET BY MOUTH DAILY sertraline 50 mg tablet 50 mg PO DAILY Qty: 30 3RF Referrals Follow up/Referrals: Blayne Hernández MD [Primary Care Provider, Internal Medicine] - See instructions Lin Ayers DPM [Staff Physician, Podiatry] - See instructions Referral Note: R ATFL w/ avulsion fx, calcaneus fx Activity Restrictions/Add. Instructions Additional Instructions/Restrictions: You were evaluated in the ER and I believe to be appropriate for discharge at this time. Keep the splint clean and dry, do not get it wet or put weight on it as this will damage the splint. If this happens, return to the ER for splint adjustment. Use the crutches to get around. Take Tylenol and ibuprofen if needed for pain, do not exceed the recommended dose on the bottle. Drink water and eat a small snack each time you take these medications to avoid side effects. Elevate the leg above the level of the heart to help reduce swelling. Call Dr. Ayers's office first thing in the morning to make an appointment for outpatient follow-up. She is the foot and ankle specialist. Case management will reach out. Return to the ER with any new, worsening, or otherwise concerning symptoms. Clinical Impressions Clinical Impression: Closed fracture of anterior process of calcaneus, Avulsion fracture of right talus Print Language Print Language: Guyanese Discharge ED Provider: Miguel Pena General Adult HPI General Chief complaint: Fall Stated complaint: AO 6-4 fell at store,right ankle and knee Time Seen by Provider: 03/25/25 22:52 Mode of Arrival: Ambulatory Description of Symptoms (Recalled from ER Triage Doc. by RN): PT presents for evaluation of a fall that happened yesterday 03/24/2025. PT has abrasions on left leg and abrasions to right ankle with swelling. Denies hitting her head and denies LOC. No blood thinners. History of Present Illness HPI narrative: 39-year-old female presents to the ER for evaluation after a fall more than 24 hours ago. Patient has abrasions on bilateral lower extremities including the right ankle, left ankle, left knee. Patient is mostly concerned about her right ankle because she has severe pain when walking and swelling over the outside of the ankle. No numbness, tingling, or weakness. She states her left knee is also sore directly in the front but she is able to fully extend it. She also has a laceration on her left pinky toe. Patient reports last tetanus shot was a few months ago. Patient denies hitting her head or losing consciousness, no blood thinners, no other complaints or concerns. Related Data Previous Rx's ?Medication ?Instructions ?Recorded cyanocobalamin (vitamin B-12) 1,000 mcg sublingual DAILY #100 09/07/24 1,000 mcg sublingual tablet tabs methocarbamol 500 mg tablet 500 mg PO BID muscle relaxant 30 12/08/24 days #60 tabs fluconazole 150 mg tablet 150 mg PO Q3D 2 doses #2 tabs 12/22/24 osbbmorj-rhqietnlp-dxwryulxp 3.5 4 drp otic (ear) Q8H 10 days #10 mL 01/02/25 mg-10,000 unit/mL-1 % ear drops,susp prednisone 20 mg tablet 20 mg PO BID #10 tabs 01/02/25 fexofenadine 180 mg tablet See Rx Instructions .Route 02/12/25 (Allergy Relief (fexofenadine)) .COMPLEX #100 tabs omeprazole 40 mg capsule,delayed See Rx Instructions .Route 02/12/25 release .COMPLEX #30 caps sertraline 50 mg tablet 50 mg PO DAILY #30 tabs 03/08/25 Allergies Allergy/AdvReac Type Severity Reaction Status Date / Time No Known Allergies Allergy Verified 01/02/25 12:12 [facility] Disclaimer: The information contained in this section may have been updated after the patient was seen, as this information can be updated by other users. Medical History , [employer]) Ocular histoplasmosis Palpitations Thyroid nodule Surgical History , [employer]) Hx of bilateral salpingectomy History of cholecystectomy Family History , [employer]) Hypertension Mother Social History , [employer]) Smoking Status: Current every day smoker tobacco type: cigarettes packs per day: 1 second hand exposure: No alcohol intake: current alcohol intake frequency: holidays/special occasions only substance use type: denies use current occupational status: unemployed Travel in the last 8 weeks?: None household members: significant other housing: house lives independently: No education level: high school service: No long term: No current occupation: office current occupational exposures/hazards: No caffeine: Yes special suraj needs: No agree to transfusion: No do you feel safe at home: Yes victim of physical abuse: No victim of emotional abuse: No victim of sexual abuse: No would you like helpful sources: No Have you lived/traveled outside US in past 30 days?: No Contact w/someone who lives/traveled outside US past 30 days?: No Exposure to someone with infectious disease in past 14 days?: No Do you have a fever (greater than 100.4 F or 38 C)?: No Have you tested positive for COVID-19?: No Exposed to someone with COVID-19 in past 14 days?: No Do you have a sore throat?: No Do you have a cough?: No Do you have any weakness?: No Do you have any diarrhea?: No Are you experiencing any unusual bleeding?: No Do you have any muscle aches/pain?: No Do you have any abdominal pain?: No Are you experiencing loss of taste or smell?: No Other Medical History Have you received the Flu Vaccine for this season: Yes Have you received the Pneumonia Vaccine: No ROS Obtained: Yes Systems reviewed as appropriate & no additional complaints except as documented Per HPI Physical Exam General General appearance: alert and in no apparent distress Head Head exam: atraumatic and normocephalic Eye Eye exam: Present PERRL and EOMI ENT ENT exam: Present mucous membranes moist Neck Neck exam: Present normal inspection and full ROM Chest Chest inspection: Present symmetric chest wall rise Respiratory Respiratory exam: Present normal lung sounds bilaterally; Absent respiratory distress or stridor Cardiovascular Cardiovascular exam: Present regular rate and normal rhythm Extremities Exam Extremities exam: Present full ROM Expanded Lower Extremity Exam Left: Knee exam: Present full ROM (Patient has discomfort with full flexion secondary to sensation of pressure in the knee but range of motion is full), tenderness (Very mild anterior infrapatellar), abrasion, ecchymosis and knee extension intact; Absent swelling, laceration, deformity, crepitus, dislocation, erythema, anterior drawer sign, posterior draw sign, pain with valgus, laxity with valgus, pain with varus or laxity with varus Ankle exam: Present full ROM and abrasion; Absent tenderness, swelling, laceration, ecchymosis, deformity, crepitus, dislocation or erythema Foot/toe exam: Absent tenderness Top foot image:  1. Areas of abrasion but no swelling or bruising, no crepitus or deformity Bottom foot image:  1. 0.5 cm laceration at lateral aspect of left pinky toe, hemostatic with granulation tissue present, no evidence of infection, no evidence of damage to the nailbed Comment: Neurovascularly intact throughout Right: Knee exam: Present normal inspection and full ROM Ankle exam: Present tenderness, swelling, abrasion, ecchymosis and other (No tenderness over either malleoli, maximal tenderness overlying the ATFL area); Absent full ROM (Range of motion limited secondary to pain), laceration, deformity or dislocation Ankle image:  1. Area of maximal tenderness with associated swelling, ecchymosis, abrasion, no deformity or crepitus, neurovascularly intact distally Neurological Exam Neurological exam: Present alert and oriented X3; Absent motor sensory deficit Psychiatric Psychiatric exam: Present normal affect and normal mood Skin Skin exam: Present warm and dry Medical Decision Making Medical Records Medical records reviewed: Yes I reviewed the patient's medical records. Screening: Per USPSTF and CDC recommendations, given the prevalence of disease in our region, it is our hospital?s policy to screen for HIV and viral Hepatitis for all patients aged 18 and over and those with ongoing risk factors. Kumar Inquiry Pt receiving controlled substance: No Vital Signs: 03/25/25 22:08 03/25/25 22:59 03/26/25 00:04 Temperature 98.0 F Temperature Source Oral Pulse Rate 82 81 Pulse Rate [Right] 98 H Respiratory Rate 18 20 29 H Blood Pressure Blood Pressure [Right Arm] 132/82 Blood Pressure Mean [Right Arm] 98 02 Sat by Pulse Oximetry 98 99 100 Oxygen Delivery Method Room Air 03/26/25 00:45 Temperature Temperature Source Pulse Rate 79 Pulse Rate [Right] Respiratory Rate 23 Blood Pressure 138/78 Blood Pressure [Right Arm] Blood Pressure Mean [Right Arm] 02 Sat by Pulse Oximetry 99 Oxygen Delivery Method Orders (Tests/Meds): ORDERS Category Date Time Status CT ankle RT wo con Stat Cat Scan 03/25/25 23:51 Completed Consult to Case Management [CONS] Routine Cons 03/26/25 00:58 Active XR ankle RT min 3V Stat Exams 03/25/25 22:53 Completed XR knee LT 3V Stat Exams 03/25/25 22:53 Completed Medical Decision Narrative: In summary, this 39-year-old female with comorbidities including GERD, thyroid nodule presents to the emergency department today with right ankle and left knee pain after a fall more than 24 hours ago. On initial evaluation patient is hemodynamically stable, afebrile, GCS 15, no neurologic deficits, patient has areas of bruising, tenderness, pain as described in the physical exam with the most concerning findings with swelling and tenderness at the lateral aspect of the right ankle though no tenderness over the malleoli, neurovascularly intact. Patient also has a small wound to the left pinky toe which would not be amenable to closure at this time due to being over 24 hours old, no current gaping or bleeding. Tdap up-to-date. Differential diagnosis includes but is not limited to fracture, dislocation, sprain, strain. Based on these concerns, I ordered x-ray imaging. Patient declined my offer for any pain medications in the ER stating she is comfortable at this time. X-rays personally interpreted demonstrate possible avulsion injury near the lateral calcaneus, see radiology read for final interpretation. I discussed the radiology read with the radiologist and he recommended further imaging because he is also concerned about the talus. CT right ankle was performed and personally interpreted and does demonstrate injuries of the calcaneus and talus. See radiology reads for final potation. Patient was placed in a posterior short leg splint. Neurovascularly intact before and after procedure. See procedure note for details. Patient is appropriate for discharge at this time. She was provided crutches for ambulation. She was given instructions on splint care, follow-up instructions including referral to Dr. Ayers, and strict return precautions for the ER. She indicated understanding and the patient was discharged in stable condition. Procedures Orthopedic Splinting/Casting Injury #1: Side: right Lower Extremity Immobilizer: posterior splint (Soft roll, Ortho-Glass, Umer wrap) and applied by nurse/dr andersen Other Orthopedic Equipment: crutches Post Cast/Splinting Neuro Status: intact and no change Post Cast/Splinting Vasc Status: intact and no change Critical Care Critical Care Time Critical Care Time: No
--- NOTE | 2025-03-25 23:51 | CT_ITS ---
PROCEDURE INFORMATION: Exam: CT Right Lower Extremity Without Contrast, Ankle Exam date and time: 03/26/2025 12:01 AM Age: 39 years old Clinical indication: Pain; Ankle; Right; Additional info: Fall, ttp over atfl area TECHNIQUE: Imaging protocol: CT of the right lower extremity without contrast was performed. Exam focused on the ankle. Radiation optimization: All CT scans at this facility use at least one of these dose optimization techniques: automated exposure control; mA and/or kV adjustment per patient size (includes targeted exams where dose is matched to clinical indication); or iterative reconstruction. COMPARISON: CR XR ANKLE RT MIN 3V 03/25/2025 10:52 PM FINDINGS: Bones/joints: 1 cm thin linear fracture fragment adjacent to the anterior aspect of the lateral talar process. 1.7 cm thin linear fracture fragment adjacent to the calcaneus anterior process. Mild calcaneal enthesopathy. Anterior tibial plafond osteophyte. Small tibiotalar joint effusion. Soft tissues: Lateral ankle and foot soft tissue swelling. IMPRESSION: 1. Mildly displaced lateral talar process avulsion fracture occurring at the anterior tibiofibular ligament insertion. 2. Mildly displaced calcaneus anterior process avulsion fracture. 3. Small tibiotalar joint effusion.
[2025-03-26 00:04] VITALS: PULSE 81; RESP 29; O2SAT 100
[2025-03-26 00:45] VITALS: BP 138/78; PULSE 79; RESP 23; O2SAT 99
--- NOTE | 2025-03-26 00:53 | PC.NURSE ---
race and sports book writer applied posterior short leg with stirrups to right ankle. race and sports book writer used 3 in and 2 in orthoglass, and provided crutches and teaching
[2025-03-26 01:04] VITALS: BP 138/78; PULSE 79; RESP 18; TEMP 36.6; O2SAT 98
[2025-03-26 01:11] VITALS: BP 138/78; PULSE 79; RESP 20; TEMP 36.6; O2SAT 99
--- NOTE | 2025-03-26 13:53 | CARE MANAGER ---
Received consult from the ER regarding patient being mother's primary caregiver. Spoke with patient who states she is in contact with [facility] regarding her mother going there. We discussed home health not really being an option and getting on the waitlist for waiver services. Offered private sitter list as well. Patient states she is ok and will stay in contact with [facility] at this time.
== END 2025-03-26 01:12 | disposition home or self-care (01) ==
PROVIDERS: Emergency Provider Emergency Medicine; PCP Family Medicine
DX: S92.151A Displaced avulsion fracture (chip fracture) of right talus, initial encounter for closed fracture (principal); S92.021A Displaced fracture of anterior process of right calcaneus, initial encounter for closed fracture; W19.XXXA Unspecified fall, initial encounter
CPT/HCPCS: 29515; 73562; 73610; 73700; 99284

== ENCOUNTER 2025-04-13 14:18 | Outpatient (CLI) | payer MEDICAID, SELFPAY ==
--- OUTSIDE RECORDS SUMMARY | 2025-04-13 14:21 | XMS_ITS | Data Portability ---
Author Organization [facility] Address [address] [place] [address] Assessment Encounter Date Assessment Date Assessment LastModified by Organization Details LastModified Time 05/02/2021 05/02/2021 Acute Aerial Sprayer problems as below addressed today, overdue for annual exam, needs to schedule. Cervical cytology obtained given grossly overdue for this pending annual exam lshower Not available 05/02/2021 22:07:55 Plan of Treatment Reminders Order Date Submit Date Provider Last Modified By Organization Details Last Modified Time Details Appointments None recorded. Lab bacterial vaginosis + vaginitis panel, vaginal 2020 021 SHANE [facility], [address], [address], [place], [address], 12:11:49 pap, IG + HPV 2020 021 SHANE [facility], [address], [address], [place], [address], 14:11:50 Referral None recorded. Procedures None recorded. Surgeries None recorded. Imaging None recorded. Medication Orders Vagifem 10 mcg vaginal tablet 2020 021 [facility] [place], [address], 18:05:40 Xulane 150 mcg-35 mcg/24 hr transdermal patch 2020 021 [facility] [address] [place], [address], 18:05:40 Patient TargetsNo targets recorded. Patient Instructions Encounter Date Encounter Id Patient Instructions Last Modified By Organization Details Last Modified Time 05/02/2021 [id number] medical record request* - Please send all record SHANE Not available 05/03/2021 11:31:08 medical record request* - please send operative notes and imaging (CT SCAN) SHANE Not available 05/03/2021 11:29:33 medical record request* - Please send most recent note and labs SHANE Not available 05/03/2021 11:30:04 RTO 6 weeks reassess treatment with Vagifem and annual lshower Not available 05/02/2021 22:10:31 Reason for Referral None Reported. Results Created Date Observation Date Name Description Value Unit Range Abnormal Flag Note LastModifiedBy Organization Detail LastModifiedTime 05/02/2005/05/2021 NUSWA B VAGIN ITIS (VG) atopobium vaginae Low - 0 score Not Available [facility] ([facility]) [address] [facility], [place], [address], 05/05/2021 12:11:49 05/02/2005/05/2021 NUSWA B VAGIN ITIS (VG) bvab 2 Low - 0 score Not Available [facility] ([facility]) [address] [place], [address], 05/05/2021 12:11:49 05/02/2005/05/2021 NUA B VAGIN ITIS (VG) megasphaera 1 Low - 0 score Calcu late total score by elisa g the 3 indiv idual bacte rial vagin osis (BV) marke r score s toget her. Total score is inter prete d as follo ws: Total score 0-1: Indic ates the absen ce of BV. Total score 2: Indet ermin ate for BV. Addit ional clini henrietta data shoul d be evalu ated to estab gerard a diagn osis. Total score 3-6: Indic ates the prese nce of BV. This test was devel oped and its perfo rmanc e citlali cteri stics deter mined by [facility]. It has not been clear ed or appro angela by the Food and Drug Admin istra tion. Not Available [facility] ([facility]) [address] [facility], [place], [address], 05/05/2021 12:11:49 05/02/20 21 05/05/2021 NUSWA B VAGIN ITIS (VG) crispin albicans, BONNY Negati ve negati ve Not Available [facility] ([facility]) [address] [place], [address], 05/05/2021 12:11:49 05/02/2005/05/2021 NUSWA B VAGIN ITIS (VG) crispin glabrata, BONNY Negati ve negati ve Not Available [facility] ([facility]) [address] [facility], [place], [address], 05/05/2021 12:11:49 05/02/20 21 05/05/2021 NUSWA B VAGIN ITIS (VG) trich vag by BONNY Negati ve negati ve Not Available [facility] ([facility]) [address] [place], [address], 05/05/2021 12:11:49 05/02/20 21 05/04/2021 IGP, APTIM A HPV, RFX 16/18 ,45 HPV aptima Negati ve negati ve This nucle ic acid ampli ficat ion test detec ts fourt een high- risk HPV types (16,1 8,31, 33,35 ,39,4 5,51, 52,56 ,58,5 9,66, 68) witho ut diffe renti ation . Not Available [facility] ([facility]) [address] [place], [address], 05/05/2021 14:11:50 05/02/20 21 05/05/2021 IGP, APTIM A HPV, RFX 16/18 ,45 diagnosis: Commen t NEGAT JUNI FOR INTRA EPITH ELIAL LESIO N OR VICKI ARNETT . THIS SPECI MEN WAS RESCR EENED PART OF OUR QUALI TY CONTR OL PROGR AM. Not Available [facility] ([facility]) [address] [facility], [place], [address], 05/05/2021 14:11:50 05/02/20 21 05/05/2021 IGP, APTIM A HPV, RFX 16/18 ,45 specimen adequacy: Symone dugan Satis facto ry for evalu ation . Endoc ervic al and/o r squam ous metap lasti c cells (endo cervi henrietta compo nent) are prese nt. Not Available [facility] ([facility]) [address] [place], [address], 05/05/2021 14:11:50 05/02/20 21 05/05/2021 IGP, APTIM A HPV, RFX 16/18 ,45 clinician provided ICD10: Symone dugan N89.8 Z12.4 Not Available [facility] ([facility]) [address] [place], [address], 05/05/2021 14:11:50 05/02/20 21 05/05/2021 IGP, APTIM A HPV, RFX 16/18 ,45 performed by: Symone quezada , Cytot echno logis t (ASCP ) Not Available [facility] ([facility]) [address] [place], [address], 05/05/2021 14:11:50 05/02/20 21 05/05/2021 IGP, APTIM A HPV, RFX 16/18 ,45 QC reviewed by: Symone sloan, Sandee visor y Cytot echno logis t (ASCP ) Not Available [facility] ([facility]) [address] [place], [address], 05/05/2021 14:11:50 05/02/20 21 05/05/2021 IGP, APTIM A HPV, RFX 16/18 ,45 . . Not Available [facility] ([facility]) [address] [place], [address], 05/05/2021 14:11:50 05/02/20 21 05/05/2021 IGP, APTIM A HPV, RFX 16/18 ,45 note: Commen t The Pap smear is a scree nyla test desig casi to aid in the detec tion of wilner ligna nt and malig nant condi tions of the uteri ne cervi x. It is not a diagn ostic proce dure and shoul d not be used as the sole means of detec ting cervi henrietta cance r. Both false -posi tive and false -nega tive repor ts do occur . Not Available [facility] ([facility]) [address] [facility], [place], [address], 05/05/2021 14:11:50 05/02/20 21 05/05/2021 IGP, APTIM A HPV, RFX 16/18 ,45 test methodology: Commen t This liqui d based ThinP rep(R ) pap test was scree casi with the use of an image guide d systcaren m. Not Available [facility] ([facility]) [address] [place], [address], 05/05/2021 14:11:50 Result Notes None recorded. Problems Name Problem SNOMED Code Status Onset Date Resolution Date Notes Provider Name and Address Organization Details Recorded Time Anxiety 03391192 Active Janette Kyle null, [place] - [facility] 09:40:44 Multinodu lar goiter 215935368 Active [address] Bentley ENT; CT and BW done 02/2021 Neg Augusta Malcolm MD [address], [place], [address], [place] - [facility] 09:54:26 Problem Notes None recorded. Procedures Surgical History Date Name Laterality Status Provider Name and Address Organization Details Recorded Time 07/13/20 21 Date of Last Pap Smear completed Janettefred PIMENTEL [facility] 05/30/2021 16:26:20 11/04/19 21 Date of Last Mammogram completed Janettefred PIMENTEL [facility] 05/04/2021 08:04:06 [facility] 09:45:45 Imaging Results None recorded. Procedure Notes None recorded. Medical Equipment None Reported. Allergies No known drug allergies Medications Name Sig Start Date Stop Date Status Note LastModified by Organization Details LastModified Time amoxicillin 500 mg capsule TAKE 1 CAPSULE TWICE DAILY FOR 10 DAYS 05/02 completed Not Available Not Available Not Available methocarbam ol 500 mg tablet TAKE 1 TABLET BY MOUTH TWICE A DAY NEEDED 05/02 completed Not Available Not Available Not Available buspirone 5 mg tablet TAKE 1 TABLET BY MOUTH TWICE DAILY active Not Available Not Available No t Available prednisone 10 mg tablet TAKE 1 TABLET BY MOUTH TWICE A DAY FOR 3 DAYS 05/02 completed Not Available Not Available Not Available cetirizine 10 mg tablet TAKE 1 TABLET BY MOUTH ONCE DAILY active Not Available Not Available No t Available ibuprofen 800 mg tablet TAKE 1 TABLET BY MOUTH EVERY 8 HOURS FOR PAIN 05/02 completed Not Available Not Available Not Available tizanidine 4 mg tablet TAKE 1 TABLET BY MOUTH THREE TIMES DAILY NEEDED FOR MUSCLE SPASM 05/02 completed Not Available Not Available Not Available hydrocodone 5 mg-acetamin ophen 325 mg tablet TAKE 1 TO 2 TABLETS BY MOUTH EVERY 6 HOURS NEEDED FOR POST OP PAIN 05/02 completed Not Available Not Available Not Available meloxicam 15 mg tablet TAKE 1 TABLET BY MOUTH ONCE DAILY WITH FOOD 05/02 completed Not Available Not Available Not Available promethazin e 12.5 mg tablet TAKE 1 TABLET BY MOUTH EVERY 6 HOURS NEEDED FOR POST OP NAUSEA 05/02 completed Not Available Not Available Not Available phenazopyri dine 200 mg tablet TAKE 1 TABLET BY MOUTH EVERY 8 HOURS FOR 3 DAYS active Not Available Not Available No t Available prednisone 20 mg tablet TAKE 1 TABLET BY MOUTH TWICE DAILY 05/02 completed Not Available Not Available Not Available omeprazole 40 mg capsule,del ayed release 1 CAPSULE 30 MINUTES BEFORE MORNING MEAL ONCE A DAY active Not Available Not Available No t Available meloxicam 7.5 mg tablet 05/02 completed Not Available Not Available Not Available amoxicillin 875 mg tablet TAKE 1 TABLET BY MOUTH EVERY 12 HOURS 05/02 completed Not Available Not Available Not Available meclizine 25 mg tablet TAKE 1 TABLET BY MOUTH FOUR TIMES DAILY NEEDED 05/02 completed Not Available Not Available Not Available buspirone 7.5 mg tablet TAKE 1 TABLET BY MOUTH TWICE DAILY active Not Available Not Available No t Available diclofenac sodium 75 mg tablet,nader yed release TAKE 1 TABLET BY MOUTH TWICE A DAY 05/02 completed Not Available Not Available Not Available ibuprofen 600 mg tablet TAKE 1 TABLET BY MOUTH THREE TIMES DAILY WITH FOOD OR MILK 05/02 completed Not Available Not Available Not Available methylpredn isolone 4 mg tablets in a dose pack TAKE DIRECTED PER PACKAGE INSERT 05/02 completed Not Available Not Available Not Available hydroxyzine HCl 10 mg tablet TAKE 1 TABLET BY MOUTH EVERY 8 HOURS active Not Available Not Available No t Available ondansetron 4 mg disintegrat ing tablet 1 TABLET ON THE TONGUE AND ALLOW TO DISSOLVE EVERY 6 HOURS NEEDED 05/02 completed Not Available Not Available Not Available fluticasone propionate 50 mcg/actuati on nasal spray,suspe nsion INSTILL 2 SPRAYS INTO EACH NOSTRIL ONCE A DAY active Not Available Not Available No t Available Vitamin B-12 1,000 mcg tablet TAKE 1 TABLET BY MOUTH EVERY DAY active Not Available Not Available No t Available neomycin-po lymyxin-hyd rocort 3.5 mg-10,000 unit/mL-1 % ear drops,susp 05/02 completed Not Available Not Available Not Available duloxetine 30 mg capsule,del ayed release TAKE 1 TABLET BY MOUTH AT BEDTIME active Not Available Not Available No t Available Fish Oil 340 mg-1,000 mg capsule TAKE 1 CAPSULE BY MOUTH TWICE DAILY active Not Available Not Available No t Available Jen Allergy 180 mg tablet Take 1 tablet every day by oral route. active Not Available Not Available No t Available Yuvafem 10 mcg vaginal tablet INSERT 1 TABLET IN VAGINA TWICE A WEEK active Not Available Not Available No t Available Zafemy 150 mcg-35 mcg/24 hr transdermal patch APPLY 1 PATCH TOPICALLY ONCE A WEEK active Not Available Not Available No t Available Vitals Date Recorded Body height Body mass index (BMI) Body weight Systolic blood pressure Diastolic blood pressure Provider Name and Address Organization Details Last Updated DateTime 05/02/2021 160.02 cm 38.4 kg/m2 08299.54 g 126 mm[Hg] 72 mm[Hg] Janette PIMENTEL - [facility] 09:39:04 Social History Question Answer Notes LastModified by [employer] Details LastModified Time Tobacco Smoking Status Current Every Day Smoker Janette alanis, [place] - [facility] 05/02/2021 09:44:39 What Is Your Level Of Caffeine Consumption? Moderate Information not available 05/02/2021 Which Illicit Or Recreational Drugs Have You Used? Never Information not available 05/02/2021 What Is Your Relationship Status? Single Information not available 05/02/2021 How Much Tobacco Do You Smoke? 1 PPD Information not available 05/02/2021 How Many Years Have You Smoked Tobacco? 12 Information not available 05/02/2021 Sex: Female Functional Status Question Answer Note LastModified by [employer] Details LastModified Time What is your level of alcohol consumption? None Information not available 05/02/2021 Do you or have you ever used smokeless tobacco? Never used smokeless tobacco Information not available 05/02/2021 What is your occupation? no Information not available 05/02/2021 What is your exercise level? None Information not available 05/02/2021 Mental Status None recorded. Family History Relationship Description Onset Age of this Age Resolved Age Notes LastModified by Organization Details LastModified Time Maternal Aunt Malignant tumor of breast Not available 2020 09:44:21 Medical History No medical history recorded. Gynecological History Statement/Question Response Abnormal Pap N Flow Moderate Date of Last Mammogram 11/04/2020 Frequency of Cycle (Q days) 28 Date of LMP 04/17/2021 Sexually Active? Y Menses Monthly Y Date of Last Pap Smear 05/02/2021 Duration of Flow (days) 5 Current Control Method None Obstetrics History GPAL:G 1 P 1 0 0 1 Type Value Full Term 1 Living 1 Total 1 Past Encounters Encounter ID Performer Location Encounter Start Date Encounter Closed Date Diagnosis/Indication Diagnosis SNOMED-CT Code Diagnosis ICD10 Code Diagnosis Note [id number] MD Crow Mckeon [employer] [address] [facility] [place] Khan [address] 05/02/2021 09:16:15 05/02/2021 10:48:13 Vaginal irritation 023891034 N89.8 No findings on physical exam. Describes a sense of unilateral dryness somewhat atypical, but will treat empiricall y for possible atrophy Screening for malignant neoplasm of cervix 790673042 Z12.4 Overdue for screening Contracept ion care management 376473549 Z30.9 Patient me dical record not available [id number] Z76.89 Request records from testing PCP, imaging at [facility], records from [facility] Concerns Section Related Observation LastModified by Organization Detai ls LastModified Time None Recorded Concern Status LastModified by Organization Details LastModified Time None Recorded Advance Directives Directive None Recorded Payers Insurance Date Sequence Insurance Name Policy Number Policy Becerra Covered Member ID Becerra Member ID Guarantor Name 06/10/2021 1 [employer] [place] (MEDICAID HMO[place] Katiana Miles [id number] Katiana Miles 07/19/2021 [place] Katiana Miles [id number] Katiana Miles Notes Date Note Type Note Provider Name and Address Organization Details Recorded Time 05/02/2021 text/html [facility] a new patient with vulvo-vaginal compalints. She complains of vaginal pain,swelling that she has noted for 2 weeks. This involves her left labia and she notes it starting without any obvious inciting cause. She has not initiated self treatment prior to this visit. She has sought professional help for these problems. States a sense of irritation dryness on the right side of the vagina, inside the vagina. She notes this both with walking as well as with intercourse. No discharge no itching Burness or focal tenderness. No swelling. Has not had this before. Has noticed this for several weeks. States she is very nervous. Patient is well overdue for any type of preventive gynecologic care just states she gets nervous around doctors and has not come back since her child was born. States she discussed with her PCP, Mily Jiménez APRN, and had urinalysis checked and was told to collect a swab sample from her vagina herself, did not have a physical exam that day. She was told that all of these tests were negative. Bad experience at delivery and has had intermittent headaches ever since epidural placed. Would want to go through that again . Sexually active and not using any type of effective method, using withdrawal method only for the last 10 years. Think she does not want to be but then says what ever happened happens . Strongly encouraged her to consider more effective contraception. States after brief review the option she might want to consider patch. Worried that the pill might cause her more headaches. States menstrual cycles are normal and no bothersome pain. Admits also some dryness with intercourse and long-term decrease in libido. States for her anxiety she is on Cymbalta from PCP. Had pelvic CT in October, report on her phone, was done after complaints of postoperative pain following a September gallbladder surgery. 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 She has no dysmenorrhea, deep pelvic pain or dyspareunia States history of some form of thyroid abnormality, being followed by Dr. Bentley. Thinks her thyroid function has been normal, no meds. History of galactorrhea and was sent to endocrinology. Was not happy with care at . Was initially told he wanted an MRI but then he canceled this. Got some labs there and told she was premenopausal . No longer seeing any drainage. Thinks she had mammography at [facility] Augusta Malcolm MD [address], [place], [address], [place] - [facility] 05/02/2021 22:11:01 OBGyn Episode Ob Episode Information Episode Created Date Number of Fetuses Patient Bloodtype Patient rh Status Prepregnancy Weight lbs Domestic Partner Domestic Partner Phone Father Name Envelope Folder Status 05/02/20 21 1 CLOSED Fetus Data First Name Last Name Admitted to NICU Weight (g) Sex Living Outcome Pediatric Complications Fetus ID Race Codes Race Delivery Type 2778.25 1 M Full Term [id number] Vaginal Lars Calculation Initial Lars Date Initial Exam Date Initial Exam Provider Initial Ultrasound Date Last Menstrual Period Date Ultra Sound Weeks Gestation 0 Eighteen To Twenty Week Lars Update Ultra Sound Date Fundal Height At Umbil Quickening Date Ultra Sound Latest Weeks Gestation Final Lars Confirmed By Final Lars Confirmed Date Final Lars Date Ultra Sound Latest Days Gestation 0 0 Menstrual History Last Menstrual Date Menses Monthly On Bcp Conception Prior Menses Frequency Hcg Plus Date Menarche Onset Age Delivery Information Delivery Date Delivery Type Labor Anesthesia Weeks Gestation Incision Type Labor Labor Length Hrs Delivered By Post Complications Tubal Sterilization Discharge Date Comments [address] [facility] [address] Salazar Discharge Information Feeding Method Contraceptive Method Maternal HG B and HCT Levels
--- OUTSIDE RECORDS SUMMARY | 2025-04-13 14:22 | XMS_ITS | Data Portability ---
Author Organization [facility] [place] [facility] ADMIN Address [address] [place] [id number] Care Team Providers Care Parts Product Analyst Name Role Phone VALERY NEWMAN Primary Care [...] By Organization Details Last Modified Time 07/10/2023 [id number] made allergy serum RAST_1 start over needs vial challenge [email or web address] Not available 07/10/2023 11:02:02 Reason for Referral None Reported. Problems Name Problem SNOMED Code Status Onset Date Resolution Date Notes Provider Name and Address Organization Details Recorded Time Allergic rhinitis [id number] Active 022 LOREN Kong - [facility] & [place] 11:08:59 Problem Notes None recorded. Procedures Surgical History Date Name Laterality Status Provider Name and Address Organization Details Recorded Time 11/07/19 23 Allergy Injection (Single) completed Vickie PIMENTEL - [facility] - [place] & [place] 11/07/2022 09:36:24 10/30/19 23 Allergy Injection (Single) completed Vickie PIMENTEL - [facility] - [place] [facility] [place] 10/30/2022 10:56:05 10/24/19 23 Allergy Injection (Single) completed Vickie PIMENTEL - [facility] - [place] [facility] [place] 10/24/2022 10:27:55 10/10/20 22 Allergy Injection (Single) completed Vickie Valerio [place] - [facility] & [place] 10/10/2022 11:08:54 cholecystectomy completed Jacinto Yu [place] - [facility] & [place] 08/28/2022 14:51:03 Imaging Results None recorded. Procedure [...] cm Vickie PIMENTEL - [facility] - [facility] & [place] 10/24/2022 10:27:33 Date Recorded Body height Provider Name an d Address Organization Details Last Updated DateTime 10/30/2022 160.02 cm Vickie PIMENTEL - [facility] - [facility] & [place] 10/30/2022 10:55:34 Date Recorded Body height Provider Name an d Address Organization Details Last Updated DateTime 11/07/2022 160.02 cm Vickie PIMENTEL - [facility] - [facility] & [place] 11/07/2022 09:36:07 Date Recorded Body height Provider Name an d Address Organization Details Last Updated DateTime 10/10/2022 160.02 cm Vickie Valerio [place] - [facility] - [facility] & [place] 10/10/2022 11:07:17 Social History Question Answer Notes LastModified by Organizat ion Details LastModified Time Tobacco Smoking Status Current Every Day Smoker Jacinto alanis, [place] - [facility] - [facility] & [place] 08/28/2022 14:50:26 At What Age Did You Start Smoking Tobacco? 18 [email or web address] Information not available 08/28/2022 How Much Tobacco Do You Smoke? 0.5 PPD [email or web address] Information not available 08/28/2022 Sex: Unknown Functional Status None recorded. Mental Status None recorded. Family History Relationship Description Onset Age of this Age Resolved Age Notes LastModified by Organization Details LastModified Time Father No current problems or disability [email or web address] Not available 08/28 14:48:31 Mother No current problems or disability [email or web address] Not available 08/28 14:48:31 Medical History Condition Response Allergies/Hayfever Y Heart Problems N None N Heart Conditions N Emphysema N Migraines N Thyroid Problems N Developmental Delay N Depression N Glaucoma N Anemia N Immune System Disorder N Anesthesia Complications N Heart Attack (HI) N Anxiety Disorder N Diabetes N Bleeding Disorder N Arthritis N Hearing Loss N Tuberculosis N Acid Reflux (GERD) N Hyperlipidemia N Cancer N Stroke N Asthma N Sleep Disorder N GERD/Reflux N Heart Disease N Fibromyalgia N Headaches N Hypertension N Speech Delay N Kidney Disease N Gynecological HistoryNo gynecological history recorded. Obstetrics History GPAL:G 0 P 0 0 0 0 Past Encounters Encounter ID Performer Location Encounter Start Date Encounter Closed Date Diagnosis/Indication Diagnosis SNOMED-CT Code Diagnosis ICD10 Code Diagnosis Note [id number] Flores Wallace MD [facility] [facility] [place] [address] 08/28/2022 14:37:22 08/28/2022 15:11:47 Allergic rhinitis 64294855 J30.9 Sneezing 71858225 R06.7 Headache 43575694 R51.9 [id number] Flores Wallace MD [facility] [place] [address] 10/02/2022 09:40:27 10/02/2022 11:05:57 Allergic rhinitis 68933012 J30.9 Patient here for allergy skin testing. Please see scanned in document for results. [id number] Flores Wallace MD [facility] [address] [address] 10/02/2022 13:44:49 10/02/2022 13:54:00 Allergic rhinitis 98235305 J30.9 Patient here for allergy skin testing. Please see scanned in document for results. [id number] Flores Wallace MD [facility] [place] [address] [address] [facility] [place] [address] 10/10/2022 10:45:59 10/10/2022 11:00:37 Allergic rhinitis 09808449 J30.9 Patient here for allergy skin testing. Please see scanned in document for results. [id number] Flores Wallace MD [facility] [place] [address] [address] [facility] [place] [address] 10/24/2022 10:24:40 10/24/2022 10:26:45 Allergic rhinitis 90201001 J30.9 Patient here for allergy skin testing. Please see scanned in document for results. [id number] Flores Wallace MD [facility] [place] [address] [address] [place] [address] 8 10/30/2022 10:51:35 10/30/2022 10:57:41 Allergic rhinitis 97701061 J30.9 Patient here for allergy skin testing. Please see scanned in document for results. [id number] Flores Wallace MD [facility] [place] [address] [address] [facility] [place] [address] 11/07/2022 09:35:30 11/07/2022 09:58:57 Allergic rhinitis 85044188 J30.9 Patient here for allergy skin testing. Please see scanned in document for results. [id number] Flores Wallace MD [facility] [place] [address] [address] 07/10/2023 11:00:08 07/10/2023 11:03:39 Allergic rhinitis 79652139 J30.9 Patient here for allergy skin testing. Please see scanned in document for results. Health Concerns Section Related Observation LastModified by Organization Detai ls LastModified Time None Recorded Concern Status LastModified by Organization Details LastModified Time None Recorded Advance Directives Directive None Recorded Payers Insurance Date Sequence Insurance Name Policy Number Policy Becerra Covered Member ID Becerra Member ID Guarantor Name 05/09/2024 1 [facility] [place] ([place]ICA[place] HMO[place] Katiana Miles [id number] Katiana Miles OBGyn Episode No OBEpisode recorded.
--- NOTE | 2025-04-13 14:35 | XR_ITS ---
FINAL REPORT CLINICAL HISTORY: Foot Pain COMPARISON: 03/26/2025 FINDINGS: RIGHT FOOT 3 views of the right foot were obtained. There is no acute fracture or dislocation. Fracture seen on recent CT involving the calcaneus and talus may not be radiographically evident. Visualized joint spaces are normally aligned. Soft tissues are unremarkable. IMPRESSION: Subtle, small avulsion fractures of the talus and calcaneus not evident on conventional x-ray. No acute bony abnormality identified. Reviewed, Interpreted and Dictated by Gail Dorsey MD Transcribed by Ruth Guaman Authenticated and . [facility]
== END 2025-04-13 23:59 | disposition home or self-care (01) ==
LOC: RAD 14:19
PROVIDERS: PCP Family Medicine; Visit Provider Podiatrist
DX: M79.673 Pain in unspecified foot
CPT/HCPCS: 73630

== ENCOUNTER 2025-06-06 14:36 | Emergency (ER) | payer MEDICAID, SELFPAY ==
[2025-06-06 14:39] VITALS: BP 130/71; PULSE 80; RESP 18; TEMP 36.8; O2SAT 98; BMI 31.0
--- NOTE | 2025-06-06 14:45 | ED_ITS ---
Discharge Plan Disposition Patient Disposition: Home, Self-Care Condition: Good Prescriptions Prescriptions: New cyclobenzaprine 10 mg tablet 10 mg PO TID PRN (Reason: muscle spasm) Qty: 15 0RF No Action fluticasone propionate [Flonase Allergy Relief] 50 mcg/actuation spray,suspension 2 spray intranasal DAILY Qty: 16 2RF Rx Instructions: administer into each nostril daily prednisone 20 mg tablet 20 mg PO BID Qty: 10 0RF Rx Instructions: administer with food or milk cyanocobalamin (vitamin B-12) 1,000 mcg tablet, sublingual 1,000 mcg sublingual DAILY Qty: 100 3RF methocarbamol 500 mg tablet 500 mg PO BID 30 Days Qty: 60 2RF omeprazole 40 mg capsule,delayed release(DR/EC) See Rx Instructions .ROUTE .COMPLEX Qty: 30 3RF Dose Instruction: TAKE 1 CAPSULE ORALLY DAILY FOR GERD FOR 30 DAYS Rx Instructions: TAKE 1 CAPSULE ORALLY DAILY FOR GERD FOR 30 DAYS sertraline 50 mg tablet 50 mg PO DAILY Qty: 30 3RF fexofenadine [Allergy Relief (fexofenadine)] 180 mg tablet See Rx Instructions .ROUTE .COMPLEX Qty: 100 3RF Dose Instruction: TAKE 1 TABLET BY MOUTH DAILY Rx Instructions: TAKE 1 TABLET BY MOUTH DAILY Referrals Follow up/Referrals: Blayne Hernández MD [Primary Care Provider, Internal Medicine] - See instructions Clinical Impressions Clinical Impression: Acute exacerbation of chronic low back pain Print Language Print Language: Tajik Discharge ED Provider: Maribeth Penaloza General Adult HPI <Aziza Garcia - Last Filed: 06/06/25 17:58> General Chief complaint: PAIN Stated complaint: Pinch nerve back Time Seen by Provider: 06/06/25 14:45 Mode of Arrival: Ambulatory Source of Information: Patient Description of Symptoms (Recalled from ER Triage Doc. by RN): Pt presents for evaluation of back pain. Pt states she was seen by her chiropractor on saturday. Pt states she is continuing to have pain. Pt states pain is radating down bilateral legs. Pt rates pain as a 9/10. Pt was seen at [facility] yesteray and was prescribed steroids History of Present Illness HPI narrative: 39-year-old female with a history of scoliosis presents emergency department with complaints of acute exacerbation of chronic lumbar back pain. She states that she was seen at her chiropractor on Saturday for evaluation of this pain however after he has done manipulations the pain has gotten worse. She reports is being seen at urgent care yesterday and started on prednisone to help with pain however it is not improving. He reports taking Robaxin routinely. She denies saddle anesthesia, bowel or bladder incontinence. She does report that the pain radiates down both legs and feels like a burning sensation. Related Data Previous Rx's ?Medication ?Instructions ?Recorded cyanocobalamin (vitamin B-12) 1,000 mcg sublingual ROMIE LY #100 09/07/24 1,000 mcg sublingual tablet tabs methocarbamol 500 mg tablet 500 mg PO BID muscle relax ant 30 12/08/24 days #60 tabs omeprazole 40 mg capsule,delayed See Rx Instructions . Route 02/12/25 release .COMPLEX #30 caps sertraline 50 mg tablet 50 mg PO DAILY #30 tabs 02/18 07/15 fexofenadine 180 mg tablet See Rx Instructions .Route 04/07/25 (Allergy Relief (fexofenadine)) .COMPLEX #100 tabs fluticasone propionate 50 2 spray intranasal DAILY #16 grams 04/15/25 mcg/actuation nasal spray,suspension (Flonase Allergy Relief) prednisone 20 mg tablet 20 mg PO BID #10 tabs cyclobenzaprine 10 mg tablet 10 mg PO TID PRN muscle s pasm #15 06/06/25 tabs Allergies Allergy/AdvReac Type Severity Reaction Status Date / Time No Known Allergies Allergy Verified 06/05/25 16:47 [facility] <Aziza Garcia - Last Filed: 06/06/25 17:58> [facility] Disclaimer: The information contained in this section may have been updated after the patient was seen, as this information can be updated by other users. Medical History Ocular histoplasmosis Palpitations Thyroid nodule Surgical History Hx of bilateral salpingectomy History of cholecystectomy Family History Mother Hypertension Social History Smoking Status: Current every day smoker tobacco type: cigarettes packs per day: 1 pack-years: 10 second hand exposure: No alcohol intake: current alcohol intake frequency: holidays/special occasions only substance use type: denies use current occupational status: unemployed Travel in the last 8 weeks?: None household members: significant other housing: house lives independently: No education level: high school service: No intermediate: No current occupation: office current occupational exposures/hazards: No caffeine: Yes special suraj needs: No agree to transfusion: No do you feel safe at home: Yes victim of physical abuse: No victim of emotional abuse: No victim of sexual abuse: No would you like helpful sources: No Have you lived/traveled outside US in past 30 days?: No Contact w/someone who lives/traveled outside US past 30 days?: No Exposure to someone with infectious disease in past 14 days?: No Do you have a fever (greater than 100.4 F or 38 C)?: No Have you tested positive for COVID-19?: No Exposed to someone with COVID-19 in past 14 days?: No Do you have a sore throat?: No Do you have a cough?: No Do you have any weakness?: No Do you have any diarrhea?: No Are you experiencing any unusual bleeding?: No Do you have any muscle aches/pain?: No Do you have any abdominal pain?: No Are you experiencing loss of taste or smell?: No Other Medical History Have you received the Flu Vaccine for this season: Yes Have you received the Pneumonia Vaccine: No <Aziza Garcia - Last Filed: 06/06/25 17:58> ROS Obtained: Yes All systems reviewed & no additional complaints except as documented Physical Exam <Aziza Mccoysoheila - Last Filed: 06/06/25 17:58> Narrative Physical exam: Upon entering the room for evaluation patient is resting comfortably in the chair without difficulty. Her sensation is intact with 2+ pulses in all extremities. She also has 2+ patellar reflexes bilaterally. She is 5 out of 5 strength in all extremities. Patient denies tenderness to palpation of the lumbar area. Rest of her exam is unremarkable General General appearance: alert Respiratory Respiratory exam: Present normal lung sounds bilaterally Cardiovascular Cardiovascular exam: Present regular rate Neurological Exam Neurological exam: Present alert Medical Decision Making <Aziza Radha - Last Filed: 06/06/25 17:58> Medical Records Screening: Per USPSTF and CDC recommendations, given the prevalence of disease in our region, it is our hospital?s policy to screen for HIV and viral Hepatitis for all patients aged 18 and over and those with ongoing risk factors. Kumar Inquiry Pt receiving controlled substance: No Vital Signs: 06/06/25 14:39 06/06/25 18:02 Temperature 98.3 F 98.2 F Temperature Source Oral Temporal Artery Scan Pulse Rate 74 Pulse Rate [Right] 80 Respiratory Rate 18 18 Blood Pressure 137/75 Blood Pressure [Right Arm] 130/71 Blood Pressure Mean [Right Arm] 90 Blood Pressure Source [Right Arm] Automatic Cuff Blood Pressure Position [Right Arm] Sitting 02 Sat by Pulse Oximetry 98 Oxygen Delivery Method Room Air Lab Data Lab Results 06/06/25 15:12: Urine Color Yellow, Urine Appearance Clear, Urine pH 6.0, Ur Specific [place] 1.020, Urine Protein Negative, Urine Glucose (UA) Negative, Urine Ketones 1+, Urine Blood Negative, Urine Nitrate Negative, Urine Bilirubin 1+ A, Urine Urobilinogen 0.2, Ur Leukocyte Esterase Negative, Urine RBC None, Urine WBC 3-5, Ur Squamous Epith Cells 5-10, Urine Bacteria 1+, Urine Mucus 1+, Urine HCG, Qual Negative Orders (Tests/Meds): ED MEDICATIONS Discontinued Medications Generic Name Dose Route Start Last Admin Trade Name Le PRN Reason Stop Dose Admin Cyclobenzaprine HCl 10 mg 06/06/25 14:53 06/06/25 14:59 Cyclobenzaprine 10mg Tablet PO 06/06/25 14:54 10 mg ONCE ONE Administration Ketorolac Tromethamine 60 mg 06/06/25 17:03 06/06/25 17:23 Ketorolac 60mg/2ml Vial IM 06/06/25 17:04 60 mg ONCE ONE Administration ORDERS Category Date Time Status CT lumbar spine wo con Stat Cat Scan 06/06/25 14:53 Completed Urinalysis and Microscopic Stat Lab 06/06/25 15:12 Completed Urine , HCG Qual. Stat Lab 06/06/25 15:12 Completed Medical Decision Narrative: 39-year-old female with a history of scoliosis presents to the emergency department with complaints of acute exacerbation of chronic lumbar pain. She reports that she was seen at the chiropractor on Saturday for evaluation of this pain however her pain got worse after manipulations by the chiropractor. She reports taking Robaxin regularly. She was seen at urgent care yesterday for evaluation of this pain and started on prednisone however it is not improved. She denies bowel or bladder incontinence as well as saddle anesthesias. Her exam is grossly unremarkable. Stations intact with 5 out of 5 strength in all extremities. He also has 2+ patellar pulses bilaterally as well as 2+ pulses in all extremities. No pain was noted on palpation of lumbar spine. Will get CT scan of lumbar spine without contrast to evaluate her pain complaints given that it is worse after patient was manipulated by the chiropractor. Will also give a dose of Flexeril to help with pain while awaiting the CT results. CT of lumbar spine without contrast was unremarkable for acute findings. Patient was initially given Flexeril for pain control however she continued to complain of discomfort and was then given Toradol 60 mg IM. Upon reevaluation patient appears to be resting more comfortably in her room. Reviewed the findings of the workup today inform no acute abnormalities were noted. Advised her to continue taking the prednisone that she was previously prescribed by the urgent care yesterday. I also recommend that she stop taking Robaxin and that we will try Flexeril as an alternative to her pain control. Advised her to follow-up with her primary care provider. Directed her she should return immediately to the emergency department if she develops any new or worsening symptoms including bowel bladder incontinence or saddle anesthesias. Patient was agreeable to this plan of care. <Maribeth Penaloza MD - Last Filed: 06/06/25 23:45> Vital Signs: 06/06/25 14:39 06/06/25 18:02 Temperature 98.3 F 98.2 F Temperature Source Oral Temporal Artery Scan Pulse Rate 74 Pulse Rate [Right] 80 Respiratory Rate 18 18 Blood Pressure 137/75 Blood Pressure [Right Arm] 130/71 Blood Pressure Mean [Right Arm] 90 Blood Pressure Source [Right Arm] Automatic Cuff Blood Pressure Position [Right Arm] Sitting 02 Sat by Pulse Oximetry 98 Oxygen Delivery Method Room Air Lab Data Lab Results 06/06/25 15:12: Urine Color Yellow, Urine Appearance Clear, Urine pH 6.0, Ur Specific [place] 1.020, Urine Protein Negative, Urine Glucose (UA) Negative, Urine Ketones 1+, Urine Blood Negative, Urine Nitrate Negative, Urine Bilirubin 1+ A, Urine Urobilinogen 0.2, Ur Leukocyte Esterase Negative, Urine RBC None, Urine WBC 3-5, Ur Squamous Epith Cells 5-10, Urine Bacteria 1+, Urine Mucus 1+, Urine HCG, Qual Negative Orders (Tests/Meds): ED MEDICATIONS Discontinued Medications Generic Name Dose Route Start Last Admin Trade Name Le PRN Reason Stop Dose Admin Cyclobenzaprine HCl 10 mg 06/06/25 14:53 06/06/25 14:59 Cyclobenzaprine 10mg Tablet PO 06/06/25 14:54 10 mg ONCE ONE Administration Ketorolac Tromethamine 60 mg 06/06/25 17:03 06/06/25 17:23 Ketorolac 60mg/2ml Vial IM 06/06/25 17:04 60 mg ONCE ONE Administration ORDERS Category Date Time Status CT lumbar spine wo con Stat Cat Scan 06/06/25 14:53 Completed Urinalysis and Microscopic Stat Lab 06/06/25 15:12 Completed Urine , HCG Qual. Stat Lab 06/06/25 15:12 Completed Medical Decision Narrative: 39-year-old female with a history of scoliosis presents to the emergency department with complaints of acute exacerbation of chronic lumbar pain. She reports that she was seen at the chiropractor on Saturday for evaluation of this pain however her pain got worse after manipulations by the chiropractor. S he reports taking Robaxin regularly. She was seen at urgent care yesterday for evaluation of this pain and started on prednisone however it is not improved. She denies bowel or bladder incontinence as well as saddle anesthesias. Her exam is grossly unremarkable. Stations intact with 5 out of 5 strength in all extremities. He also has 2+ patellar pulses bilaterally as well as 2+ pulses in all extremities. No pain was noted on palpation of lumbar spine. Will get CT scan of lumbar spine without contrast to evaluate her pain complaints given that it is worse after patient was manipulated by the chiropractor. Will also give a dose of Flexeril to help with pain while awaiting the CT results. CT of lumbar spine without contrast was unremarkable for acute findings. Patient was initially given Flexeril for pain control however she continued to complain of discomfort and was then given Toradol 60 mg IM. Upon reevaluation patient appears to be resting more comfortably in her room. Reviewed the findings of the workup today inform no acute abnormalities were noted. Advised her to continue taking the prednisone that she was previously prescribed by the urgent care yesterday. I also recommend that she stop taking Robaxin and that we will try Flexeril as an alternative to her pain control. Advised her to follow-up with her primary care provider. Directed her she should return immediately to the emergency department if she develops any new or worsening symptoms including bowel bladder incontinence or saddle anesthesias. Patient was agreeable to this plan of care. I was consulted by the SERGE, and we discussed the complexity of problems being addressed. I approved the treatment and management plan for this patient's care in the emergency department, thus performing a substantial portion of the medical decision making. Maribeth Penaloza MD Critical Care <Aziza Garcia - Last Filed: 06/06/25 17:58> Critical Care Time Critical Care Time: No
--- NOTE | 2025-06-06 14:53 | CT_ITS ---
PROCEDURE INFORMATION: Exam: CT Lumbar Spine Without Contrast Exam date and time: 06/06/2025 3:41 PM Age: 39 years old Clinical indication: Low back pain; Additional info: Acute exacerbation of chronic back pain TECHNIQUE: Imaging protocol: Computed tomography of the lumbar spine without contrast. Radiation optimization: All CT scans at this facility use at least one of these dose optimization techniques: automated exposure control; mA and/or kV adjustment per patient size (includes targeted exams where dose is matched to clinical indication); or iterative reconstruction. COMPARISON: CR XR LUMBAR SPINE MIN 4V 12/12/2020 9:55 PM FINDINGS: Bones/joints: This report assumes 5 vertebrae in the lumbar spine with vestigial ribs at L1. 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 No evidence of acute fracture or malalignment. Degenerative facet hypertrophy results in [id number] neuroforaminal narrowing from L4-S1, right greater than left. Minimal degenerative disc disease. Bilateral sacroiliac degenerative osteoarthrosis. Adrenal glands: Macroscopic fat-containing 1.5 cm nodule in the left adrenal gland consistent with benign adenoma. No routine follow-up imaging is recommended per current guidelines. (Reference: Edinson) Soft tissues: Unremarkable. IMPRESSION: 1. No evidence of acute osseous abnormality in the lumbar spine. 2. 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 3. Degenerative changes, as above. COMMENTS: Consistent with the [employer]'s Incidental Findings Committee white paper (J Am Tracie Radiol 2017): For any incidental adrenal lesion greater than or equal to 1 cm but less than or equal to 4 cm classified in this report as benign, likely benign, or containing fat (including classification as an adenoma or myelolipoma), no follow-up imaging is recommended per consensus recommendations based on imaging criteria. Further lab evaluation could be pursued if warranted based on clinical findings. REFERENCES: Edinson BAXTER, et al. Management of Incidental Adrenal Masses: A White Paper of the ACR Incidental Findings Committee. J Am Tracie Radiol. 2017;14(8):4886-3270.
[2025-06-06] MEDS: CYCLOBENZAPRINE 10MG TABLET 10 MG PO (14:59)
[2025-06-06 15:17] LABS: Microscopic, Urine URINE MICROSCOPIC (MICROSCOPIC)
[2025-06-06 15:25] LABS: Color,Urine YELLOW (Yellow); Glucose,Urine (UA) Negative (Negative); Ketones,Urine 1+ (Negative); Leukocyte Esterase,Urine Negative (Negative); PH,Urine 6.0 (5.0-8.5); Protein,Urine Negative (Negative); Specific Gravity, Urine 1.020 (1.005-1.030); Urine Pregnancy, HCG Qual. Negative (Negative); Urobilinogen,Urine 0.2 EU/dl (0.2)
[2025-06-06 15:35] LABS: Bacteria,Urine 1+ /lpf; Bilirubin,Urine 1+ (Negative); Mucus,Urine 1+ /lpf
[2025-06-06] MEDS: KETOROLAC 60MG/2ML VIAL 60 MG IM (17:23)
[2025-06-06 18:02] VITALS: BP 137/75; PULSE 74; RESP 18; TEMP 36.8; O2SAT 98
== END 2025-06-06 18:02 | disposition home or self-care (01) ==
PROVIDERS: Nurse Practitioner Family; Emergency Provider Student in an Organized Health Care Education/Training Program; PCP Family Medicine
DX: M54.50 Low back pain, unspecified (principal); M79.604 Pain in right leg; M79.605 Pain in left leg; F17.210 Nicotine dependence, cigarettes, uncomplicated
CPT/HCPCS: 72131; 81001; 81025; 96374; 99283; 99284; J1885

== ENCOUNTER 2025-10-20 13:00 | Outpatient (RCR) | payer MEDICAID, SELFPAY ==
--- NOTE | 2025-10-06 15:03 | HMH.PTOPEV ---
PT Evaluation Rehab PT Outpatient Evaluation Start: 10/06/25 14:01 Freq: Status: Active Protocol: Document 10/06/25 14:01 PDESEROUX (Rec: 10/06/25 15:03 PDESEROUX [id number]) E-signed By Kraig Rosales, PT Outpatient Therapy Subjective History Subjective History Pt. is a 40 year old female who presents to [facility] Out[facility] Services in [place] for the PT outpatient initial evaluation this date() w/ c/o acute and constant lumbar spine P!, spams , and stiffness of insidious onset that has progressively been getting worse over the last 2-3 months. Pt. denies trauma as to onset of symptom complaint. However, pt. 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 Pt. c/o constant pain across the lumbosacral spine w/ intermittent vibration, numbness, tingling into the R LE foot when she is sitting and relaxing. Pt. reports having some symptom relief w/ standing and walking, but vocalizes I can still feel it in my back. Pt. reports having no overall symptom relief after having adjustments at the Chiropractor. Pt . reports going to the E.R. secondary to the pain in the lumbar spine where she had a CT scan taken. 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 Pt. reports her referring Physician is wanting to order and MRI of the lumbar spine if no symptom relief w/ Physical Therapy. Pt. denies having any injections for current complaint. Pt. denies having any symptom relief w/ prescribed Prednisone, Flexeril, Lyrica. Pt. denies bowel/bladder dysfunction, denies saddle paresthesia. Current medications include Prilosec, Zoloft, and Jen. PMH includes family history of osteoporosis(mother), family history of degenerative disc disease, mild scoliosis, and R LE ankle fx. New diagnosis of No cancer in past 12 months? Chief Complaint Pain,Stiff,Catches/Locks,Paresthesia Symptom Type Ache,Sharp,Stabbing,Numbness,Tingling,Other Symptoms Relieved By Rest/Positioning,Ice Symptoms Aggravated Bending/Stooping,Physical Activity,Twisting,Lifting By Prior Functional None Limitations Current Functional Housework,Driving,Sleeping,Sitting,Bending/Stooping Limitations Symptom Description Constant and Continuous,Activity Dependent Level of pain today 5 (0-10) Pain scale - at its 3 best (0-10) Pain scale - at its 9 worst (0-10) Lumbopelvic Eval Posture Thoracic Spine Neutral Posture Standing Position Lumbar Spine Posture Neutral Standing Position Assistive device Assistive Devices None / NA Gait Observation General Gait Pattern No Deviations/Normal Observation Palapation tenderness bilateral lumbar spinal Yes: L5/S1 central P-A mobs. grade II-III tenderness Lumbar/Sacral Tenderness Palpation Findings Lumbar/Sacral grade 4 +TTP to B/L piriformis and glute med. mms. Palpation Overall Comment Accessory Movement L-spine Vertebrae Central P/A [place],Right P/A [place],Left P/A [place] Accessory Movements that Elicit Symptoms L5 bilateral S1 bilateral Range of Motion Lumbar Spine Active 57 Flexion Range of Motion (degrees) Lumbar Spine Active 27 Extension Range of Motion (degrees) Left Lumbar Spine 36 Lateral Flexion Active Range of Motion (degrees) Right Lumbar Spine 27 Lateral Flexion Active Range of Motion (degrees) Lumbar Spine ROM Soft Tissue Tightness,Pain Limitations Manual Muscle Test Bilateral Knee Extension 5 Normal Strength Grade Knee Flexion 5 Normal Strength Grade Hip Flexion Strength 4+ Good+ Grade Hip Abduction 4+ Good+ Strength Grade Hip Adduction 4+ Good+ Strength Grade Hip External 5 Normal Rotation Strength Grade Hip Internal 5 Normal Rotation Strength Grade Hip Extension 5 Normal Strength Grade Gluteus Noe 5 Normal Strength Grade Extensor Hallucis 5 Normal Longus Strength Grade Ankle Dorsiflexion 5 Normal Strength Grade Gastronemius/Soleus 5 Normal Strength Grade DTR Rt Patellar 3+ Lt Patellar 3+ Rt Gastroc/Soleus 2+ Lt Gastroc/Soleus 2+ Altered Sensation Bilateral Comment light touch sensation vocalized by pt. symmetrical in B LEs grossly Special Tests Hip Piriformis Test Negative Left,Negative Right Sciatic Nerve Positive Left,Positive Right Tension Test Lumbar Long [place] Negative Distraction Test/ Manual Traction Oswestry Index Section 1 Pain Intensity The pain is severe and does not vary much Section 2 Personal Care ( my way of washing or dressing even though it causes Washing,Dresing) some pain Section 3 Lifting lifting heavy weights off the floor, but I can manage if they are Section 4 Walking I have some pain when walking but it does not increase with distance Section 5 Sitting Pain prevents me from sitting for more than one hour Section 6 Standing I have some pain on standing, but it does not increase with time Section 7 Sleeping Because of my pain, my normal night's sleep is less than 6 hours sleep Section 8 Social Life My social life is normal but increases the degree of pain Section 9 Traveling I get some pain when traveling, but none of my usual forms of travel m Section 10 Changing Degreee of My pain seems to be getting better, but improvement is Pain slow Score and Risk Level Oswestry Score 19 Oswestry Risk Level Moderate Disability Outpatient Therapy Assessment Impairments Problems/ Palpation Tenderness,Impaired Range of Motion,Impaired Impairmments Transfers,Impaired Walking,Impaired Sitting,Impaired Driving,Impaired Lifting,Impaired Household Care, Impaired Bending,Impaired Recreational Activities, Subjective C/O Pain,Impaired Self Care/Self Management Prognosis Rehab Potential Good Comment w/ HEP compliancy Clinical Impression Consistent with Yes Diagnosis Consistent with Lumbago w/ R LE foot Neuropathy PT Patient Goals PT Patient Goals PT Short Term STG#1.) Pt. will subjectively report lumbar spine Patient Goals comparable P! a 5/10 @ worse in 4 wks. for improved QOL . STG#2.) Pt. will demonstrate grade 2 +TTP to L5/S1 spinous process w/ grade II P-A mob. in 4 wks. for improved QOL. STG#3.) Pt. will exhibit compliancy w/ initial HEP in 4 wks. for improved QOL. PT Assisted Patient LTG#1.) Pt. will subjectively report lumbar spine Goals comparable P! a 2/10 @ worse in 6-8 wks. for improved QOL. LTG#2.) Pt. will demonstrate grade 1 +TTP to L5/S1 spinous process w/ grade II P-A mob. in 6-8 wks. for improved QOL. LTG#3.) Pt. will exhibit compliancy w/ advanced HEP in 6-8 wks. for optimal prognosis w/ Physical Therapy. LTG#4.) Pt. will demonstrate a 8 degree improvement in R-sided lumbar lateral flexion in 6-8 wks. to return to rolling over in bed w/o difficulty. LTG#5.) Pt. will demonstrate a 13 degree improvement in lumbar spine flexion ROM in 6-8 wks. to return to prolonged sitting and relaxing for 20' at the end of her day. Outpatient Therapy Plan of Care Treatment Plan May Include Therapeutic Exercise Yes Including Home Exercise Program Manual Therapy Yes Techniques Neuromuscular Re- Yes education Therapeutic Yes Activities to Return to Previous Functional/Work Level ADL/Self Care Yes Education Dry Needling Yes Thermal Modalities Yes Electrical Yes Stimulation Ultrasound/ Yes Phonophoresis Iontophoresis Yes Vasopneumatic Yes Compression Pump Massage Yes Eval/Re-Eval Yes Frequency Times per week 2 Duration Number of Weeks 6-8 Addendums This patient is a No candidate for social or vocational rehab ? Patient/Guardian Yes verbally acknowledges understanding of treatment program and consents to further treatment? Patient/Guardian Yes verbally acknowledges understanding of diagnosis, prognosis and goals for treatment? Eval Complexity PT Charges 98219 - Low Complexity Shoulder/Elbow Eval Shoulder Objective Measurements Elbow Objective Measurements PHYSICIAN CERTIFICATION: I certify the specified therapy services for Katiana Miles are required, authorized, and reviewed every 30 days.
== END 2025-10-20 23:59 | disposition home or self-care (01) ==
LOC: PT.CARL 13:00
PROVIDERS: PCP Family Medicine; Visit Provider Family Medicine
DX: M54.50 Low back pain, unspecified (principal)
CPT/HCPCS: 97110; 97112; 97140; 97161